=== PATIENT | female | born 1945 | race Caucasian/White ===

== ENCOUNTER 2021-09-29 16:10 | Inpatient (IN) | payer MEDICARE, MEDICAID, SELFPAY ==
[2021-09-29 16:11] VITALS: BP 119/78; PULSE 128; RESP 18; TEMP 36; O2SAT 100; BMI 28.3
--- NOTE | 2021-09-29 17:11 | CT_ITS ---
STUDY: CT FACIAL BONES WITHOUT CONTRAST REASON FOR EXAM: Female, 76 years old. Fall on Sunday or Sunday. Headache. Bruising entire right face. RADIATION DOSAGE (If Supplied By Facility): CTDIvol = ( 25.01 ) mGy, DLP = ( 573.67 ) mGycm TECHNIQUE: The patient was scanned in a multi detector CT scanner. Sagittal and coronal images were reconstructed. Individualized dose optimization techniques were used for this CT. COMPARISON: None. FINDINGS: A small nondisplaced hairline fracture is present through the mid aspect of the left zygomatic arch. A small oblique hairline fracture is also seen in the posterior wall of the left orbit, see image 40/82 series 5 and in the lateral wall of the left orbit where there is minimal cortical offset see image #54/82 series 5 and 56/71 series 605. Mild left periorbital soft tissue swelling noted. Mild focal soft tissue swelling noted around the anterior and right side of the frontal bone. Minimal right periorbital and mid facial soft tissue swelling is also present. A small oblique fracture is also seen through the left posterior aspect of the sella turcica with minimal displacement, although age indeterminate, referred image 43/72 series 604 and image 36/71 series 605. Normal bilateral globes, extraocular muscles, and optic nerve complexes. No intraorbital hemorrhage or air is present. No orbital floor fractures are seen. Normal nasal bones and anterior nasal spine. Normal remaining facial bones. Ethmoid and left sphenoid sinus mild mucus opacification is present. CT/Sinus/Facial Bone IMPRESSION: 1. Nondisplaced hairline fracture through the mid aspect of the left zygomatic arch 2. Nondisplaced hairline and minimally displaced oblique fractures through the left posterior orbital wall and lateral wall respectively 3. Mild right frontal, facial, and periorbital soft tissue swelling and mild left orbital swelling 4. A small oblique fractures also seen through the left posterior aspect of the sella turcica with minimal displacement, although age indeterminate, referred image 43/72 series 604 and image 36/71 series 605. Electronically Signed: Medardo Oglesby MD at 18:28 EST , Service support ,
--- NOTE | 2021-09-29 17:11 | CT_ITS ---
EXAMINATION : Head CT w/out contrast HISTORY : headache COMPARISON : None. TECHNIQUE : Multiple contiguous axial images were obtained from the skull base to the vertex without intravenous contrast. A radiation dose optimization technique was used for this scan. FINDINGS : There is no evidence for acute intracranial hemorrhage, mass effect, or midline shift. There is no extra-axial fluid collection. There are periventricular white matter changes consistent with chronic microvascular ischemic disease. There is sulcal widening and ventricular enlargement consistent with cerebral atrophy. There is normal horton-white differentiation, without CT evidence of acute ischemia or infarct. The skull base and calvarium are unremarkable. The orbits are unremarkable. The paranasal sinuses are clear. The mastoid air cells are well-aerated. The soft tissues are unremarkable. CT/Brain/Head without Contrast IMPRESSION: No acute intracranial abnormality. Chronic involutional and ischemic changes of the brain. Electronically Signed: Yovany Rangel MD at 17:49 EST Tel , Service support ,
--- NOTE | 2021-09-29 18:08 | EDS_ITS ---
HPI History of Present Illness Chief Complaint: Headache Narrative Narrative: 76-year-old female presenting with intermittent headache. She states that she had a mechanical fall at her bedside a few days ago. She states she fell hitting her head on the wooden floor. She denies LOC. She states that the headache has been intermittent as well as some dizziness when standing. She denies visual complaints. She does have bruising over the right forehead and eye. Patient states that she does fall frequently secondary to having Parkinson's disease. Patient denies chest pain or shortness of breath. She denies nausea or vomiting. She is eating and drinking normally. She is making normal urine and stool. [facility] Medical History Dementia Depression GERD (gastroesophageal reflux disease) Parkinson's disease Home Medications acetaminophen 325 mg PO QHS 09/29/21 [History Last Taken Unknown] acetaminophen 650 mg PO Q4H PRN 09/29/21 [History Last Taken Unknown] bisacodyl 10 mg VA DAILY PRN 09/29/21 [History Last Taken Unknown] carbidopa-levodopa 1 tab PO 4X/DAY 09/29/21 [History Last Taken Unknown] cholecalciferol (vitamin D3) 1,250 mcg PO THSA 09/29/21 [History Last Taken Unknown] cholestyramine-aspartame [Prevalite] 4 g PO DAILY PRN PRN 09/29/21 [History Last Taken Unknown] cyanocobalamin (vitamin B-12) 1,000 mcg PO DAILY 09/29/21 [History Last Taken Unknown] furosemide 40 mg PO BID 09/29/21 [History Last Taken Unknown] gabapentin 600 mg PO BID 09/29/21 [History Last Taken Unknown] gabapentin 800 mg PO QHS 09/29/21 [History Last Taken Unknown] guaifenesin [Ewelina-Tussin] 200 mg PO Q4H PRN 09/29/21 [History Last Taken Unknown] magnesium hydroxide [Milk of Magnesia] 30 ml PO DAILY PRN 09/29/21 [History Last Taken Unknown] meclizine 12.5 mg PO TID PRN 09/29/21 [History Last Taken Unknown] melatonin 5 mg PO QHS 09/29/21 [History Last Taken Unknown] mineral oil [Enema] 118 ml VA DAILY PRN 09/29/21 [History Last Taken Unknown] nystatin 1 unit PO TID 09/29/21 [History Last Taken Unknown] omeprazole 20 mg PO DAILY 09/29/21 [History Last Taken Unknown] ondansetron HCl 4 mg PO Q6H PRN 09/29/21 [History Last Taken Unknown] pimavanserin [Nuplazid] 34 mg PO DAILY 09/29/21 [History Last Taken Unknown] potassium chloride 40 meq PO BID 09/29/21 [History Last Taken Unknown] ropinirole 2 mg PO DAILY 09/29/21 [History Last Taken Unknown] simethicone 125 mg PO BID 09/29/21 [History Last Taken Unknown] sumatriptan succinate 100 mg PO Q2H PRN 09/29/21 [History Last Taken Unknown] trazodone 50 mg PO QHS 09/29/21 [History Last Taken Unknown] Allergy/AdvReac Type Severity Reaction Status Date / Time iodine Allergy PT UNSURE Verified 09/29/21 16:13 OF REACTION Sulfa (Sulfonamide Allergy PT UNSURE Verified 09/29/21 16:13 Antibiotics) OF REACTION Social History Smoking Status: Unknown if ever smoked ROS ROS ED Constitutional Constitutional ED: Denies fever(s) Eyes Eyes: Denies blurry vision or change in vision ENT ENT ED: Denies rhinorrhea or sore throat Cardiovascular Cardiovascular: Denies chest pain or palpitations Respiratory/Chest Respiratory/Chest: Denies cough or dyspnea Gastrointestinal Gastrointestinal: Denies abdominal pain, nausea or vomiting Genitourinary Genitourinary ED: Denies dysuria or hematuria Musculoskeletal Musculoskeletal: Denies neck pain Integumentary Reports other Details: Bruising over the right forehead and face. ; Denies rash Neurologic Neurologic: Reports headache(s); Denies paresthesias or weakness EXAM Physical Exam Const Vital Signs: 09/29/21 16:11 09/29/21 21:35 09/29/21 21:56 Temperature 96.8 F L 97.9 F Temperature Source Temporal Temporal Pulse Rate 128 H 133 H 91 Respiratory Rate 18 18 18 Blood Pressure 119/78 98/68 100/65 Blood Pressure Mean 91 78 76 Pulse Ox 100 96 97 Oxygen Delivery Method Room Air Room Air Room Air Positive well nourished General Appearance ED: NAD; Negative for pallor HEENT Reports normocephalic and moist mucous membranes HEENT Narrative: Bruising noted over the right side of her forehead as well as dependent edema and bruising down around the eye. No extraocular muscle entrapment. No bony deformities. Nasal septum midline. No nasal septal hematoma. No hemotympanum. Eyes PERRL and EOMs intact bilaterally Neck no lymphadenopathy and supple General: Negative for tenderness Resp normal respiratory effort and clear to auscultation bilaterally Cardio Rate: tachycardic Rhythm: abnormal rhythm irregularly irregular GI non-tender Palpation: soft Back/Spine no CVA tenderness Cervical Spine: Negative for cervical spine tenderness Thoracic Spine / Upper Back: Negative for thoracic spinal tenderness Neuro oriented x3 and CN's II-XII intact bilaterally Sensorium / Orientation: awake and alert Psych mental status grossly normal Skin General Skin Exam: Negative for jaundice or pallor Rashes: no rashes MDM MDM MDM Narrative Medical decision making narrative: Patient presenting with headache and states that she has had this for couple of days since she had a mechanical fall at home. She relates that she has Parkinson's. Patient does state that she has had some dizziness with standing. Patient initially sent for CT brain and CT maxillofacial. It was noted that her heart rate was 128. EKG was ordered as well as lab work. CT of the brain shows no acute intracranial process however the CT of the facial bones does show a nondisplaced fracture of the zygomatic arch, nondisplaced hairline and minimally displaced oblique fractures through the left posterior orbital wall and lateral wall respectively, and a small oblique fractures also seen through the left posterior aspect of the sella turcica with minimal displacement, although age indeterminate. I spoke with Chuck newell regarding the sella turcica fracture. I spoke with the transfer line who referred the case to Dr. Nieves who is on-call for trauma. He reviewed the case and did not believe the patient needed to be transferred for her facial bone fractures but did request that neurosurgery evaluate the images. Dr. Cross who is on-call for neurosurgeon she did review the images and felt that this was small and likely not acute and did not need transfer after 3 days status post injury. The follow-up physician would be a plastic surgeon for this and his name was given to me is Dr. Isauor Cruz. His phone number is area code [phone]. Patient's heart rate was evaluated his EKG and she is found to be in atrial fibrillation with a ventricular rate of 131 bpm. Patient is given 20 of Cardizem and a liter of IV fluids and her heart rate did respond to 91. She states she has a history of A. fib in her past. Blood work is obtained and her CBC and CMP are unremarkable. PT/INR normal. EtOH and drug abuse screen were obtained for trauma clearance and these are negative. High-sensitivity troponin initially is 260. She states that she does not have any chest pain so I speculate as to whether this was an elevated troponin due to her heart rate being fast and this may be contributing to her lightheadedness which is making her fall. Since she does not need transport to a trauma center I spoke with the hospitalist at [facility] who accepted the patient for new onset A. fib. Impression: #1. New onset atrial fibrillation #2. Falls #3. Elevated troponin #4. Left zygomatic fracture #5. Left posterior head to rule orbital fractures #6. Age-indeterminate sella turcica fractures. Lab Data Labs: Laboratory Results - last 24 hr 09/29/21 09/29/21 09/29/21 19:15 19:15 19:15 WBC 8.3 RBC 5.16 Hgb 14.6 Hct 44.1 MCV 85.5 MCH 28.3 MCHC 33.1 RDW Std Deviation 41.2 RDW Coeff of Bob 13.2 Plt Count 215 MPV 9.4 Immature Gran % (Auto) 0.200 Neut % (Auto) 74.4 H Lymph % (Auto) 19.2 Wells % (Auto) 5.4 Eos % (Auto) 0.6 Baso % (Auto) 0.2 Absolute Neuts (auto) 6.2 Absolute Lymphs (auto) 1.59 Nucleated RBC % 0 PT 14.5 INR 1.2 Sodium 142 Potassium 3.5 Chloride 104 Carbon Dioxide 33.0 H Anion Gap 5 BUN 12 Creatinine 0.91 Estim Creat Clear Calc 44.71 Est GFR (MDRD) Af Amer 77 Est GFR (MDRD) Non-Af 64 BUN/Creatinine Ratio 13.2 Glucose 98 Calcium 9.2 Total Bilirubin 0.50 AST 13 L ALT 14 Alkaline Phosphatase 134 H Troponin I High Sens 260 H* Total Protein 7.3 Albumin 3.7 Globulin 3.6 Albumin/Globulin Ratio 1.0 Urine Color Urine Clarity Urine pH Ur Specific Mccracken Urine Protein Urine Glucose (UA) Urine Ketones Urine Occult Blood Urine Nitrite Urine Bilirubin Urine Urobilinogen Ur Leukocyte Esterase Urine RBC Urine WBC Ur Squamous Epith Cells Urine Bacteria Urine Mucus Urine Opiates Screen Urine Methadone Screen Ur Barbiturates Screen Ur Phencyclidine Scrn Ur Amphetamines Screen U Methamphetamin-MDMA U Benzodiazepines Scrn Urine Cocaine Screen U Cannabinoids Screen Ur Drug Screen Comment Ethyl Alcohol 09/29/21 09/29/21 09/29/21 19:15 19:29 19:29 WBC RBC Hgb Hct MCV MCH MCHC RDW Std Deviation RDW Coeff of Bob Plt Count MPV Immature Gran % (Auto) Neut % (Auto) Lymph % (Auto) Wells % (Auto) Eos % (Auto) Baso % (Auto) Absolute Neuts (auto) Absolute Lymphs (auto) Nucleated RBC % PT INR Sodium Potassium Chloride Carbon Dioxide Anion Gap BUN Creatinine Estim Creat Clear Calc Est GFR (MDRD) Af Amer Est GFR (MDRD) Non-Af BUN/Creatinine Ratio Glucose Calcium Total Bilirubin AST ALT Alkaline Phosphatase Troponin I High Sens Total Protein Albumin Globulin Albumin/Globulin Ratio Urine Color Straw Urine Clarity Clear Urine pH 5.0 Ur Specific Mccracken 1.015 Urine Protein Negative Urine Glucose (UA) Normal Urine Ketones Negative Urine Occult Blood Negative Urine Nitrite Negative Urine Bilirubin Negative Urine Urobilinogen Normal Ur Leukocyte Esterase Negative Urine RBC 0 SEEN Urine WBC 0 SEEN Ur Squamous Epith Cells 0 SEEN Urine Bacteria 0 SEEN Urine Mucus 0 SEEN Urine Opiates Screen NEGATIVE Urine Methadone Screen NEGATIVE Ur Barbiturates Screen NEGATIVE Ur Phencyclidine Scrn NEGATIVE Ur Amphetamines Screen NEGATIVE U Methamphetamin-MDMA NEGATIVE U Benzodiazepines Scrn NEGATIVE Urine Cocaine Screen NEGATIVE U Cannabinoids Screen NEGATIVE Ur Drug Screen Comment Ethyl Alcohol < 3.0 Radiography Diagnostic Testing: Clinical Impression(s) from Imaging Studies Brain CT 09/29/21 17:11 IMPRESSION: No acute intracranial abnormality. Chronic involutional and ischemic changes of the brain. Electronically Signed: Yovany Rangel MD at 17:49 EST Tel , Service support , Facial/Sinus 09/29/21 17:11 IMPRESSION: 1. Nondisplaced hairline fracture through the mid aspect of the left zygomatic arch 2. Nondisplaced hairline and minimally displaced oblique fractures through the left posterior orbital wall and lateral wall respectively 3. Mild right frontal, facial, and periorbital soft tissue swelling and mild left orbital swelling 4. A small oblique fractures also seen through the left posterior aspect of the sella turcica with minimal displacement, although age indeterminate, referred image 43/72 series 604 and image 36/71 series 605. Electronically Signed: Medardo Oglesby MD at 18:28 EST , Service support , Chest X-Ray 09/29/21 19:05 IMPRESSION: There are no acute findings. Electronically Signed: Jeremiah Smith MD at 19:40 EST , Service support , Discharge Plan Triage Chief Complaint: Headache ED Provider: Isauro Stroud Dx/Rx/DC Orders Primary Care Provider: Marty Rodrigues
--- NOTE | 2021-09-29 19:05 | RAD_ITS ---
STUDY: XR Chest 1 View 09/29/2021 7:12 PM REASON FOR EXAM: Female, 76 years old. Technologist Notes HEADACHE FOR A FEW DAYS. STATES SHE FELL ON SUNDAY OR SUNDAY. BRUISING AND CONTUSION TO FACE. DENIES LOC falls COMPARISON: None TECHNIQUE: XR Chest 1 View FINDINGS: There is no demonstrated pleural abnormality. Normal heart size. Normal mediastinum. Normal jazmine. Prominent appearing increased interstitial lung markings. Normal visualized pulmonary arteries. There is atherosclerotic calcification of the aortic arch with tortuosity. There are diffuse degenerative changes of the visualized thoracic spine. There is degenerative osteoarthritis of the bilateral shoulders. There is no demonstrated abnormality of the visualized soft tissue structures of the upper abdomen. RAD/Chest 1 View (Portable) IMPRESSION: There are no acute findings. Electronically Signed: Jeremiah Smith MD at 19:40 EST , Service support ,
[2021-09-29 19:30] LABS: Absolute Lymphocyte Count 1.59 X10^3/uL (0.83-4.51); Absolute Neutrophil Count 6.2 X10^3/uL (2.0-7.7); Basophil# 0.02 X10^3/uL; Basophil% 0.2 % (0-1); Eosinophil# 0.05 X10^3/uL; Eosinophils% 0.6 % (0-5); Hematocrit 44.1 % (37-47); Hemoglobin 14.6 g/dL (12.0-15.0); Lymphocyte # 1.59 X10^3/ul (0.83-4.51); Lymphocyte % 19.2 % (19-41); Mean Corp Hgb Conc 33.1 g/dL (32-36); Mean Corpuscular Hgb 28.3 pg (27.0-32.0); Mean Corpuscular Volume 85.5 fL (81-99); Mean Platelet Vol. 9.4 fl (6.2-12.0); Monocyte# 0.45 X10^3/uL; Monocyte% 5.4 % (0-10); NRBC Flagged by Analyzer 0 % (0-5); Neutrophil # 6.15 X10^3/uL (2.7-7.7); Neutrophil % 74.4 % (47-70); Platelet Count 215 K/mm3 (150-450); RBC Distribution Width CV 13.2 % (11.6-14.6); RBC Distribution Width SD 41.2 fl (35.1-43.9); Red Blood Count 5.16 M/mm3 (4.2-5.4); White Blood Count 8.3 K/mm3 (4.4-11.0)
[2021-09-29 19:34] LABS: Bacteria 0 SEEN /hpf (None Seen); Mucous, Urine 0 SEEN /hpf (<or=2+); Red Blood Cells-Urine 0 SEEN /hpf (0-5); Squamous Epithelial Cells - UA 0 SEEN /hpf (5-10); White Blood Cells 0 SEEN /hpf (0-5)
[2021-09-29 19:35] LABS: International Normalized Ratio 1.2; Prothrombin Time (Protime)PT. 14.5 SECONDS (11.7-14.9)
[2021-09-29 19:39] LABS: Color, Urine Straw (Yellow); Glucose, Dipstick Normal (Normal); Ketone-Dipstick Negative (Negative); Leukocyte Esterase-Dipstick Negative /ul (Negative); Nitrite-Dipstick Negative (Negative); Occult Blood-Urine Negative /ul (Negative); Protein-Dipstick Negative (Negative); Specific Gravity, Urine 1.015 (1.002-1.030); Urine Bilirubin Dipstick Negative (Negative); Urine Clarity Clear (Clear); Urine Urobilinogen Normal (Normal)
[2021-09-29 19:57] LABS: AST(SGOT) 13 U/L (15-37); Alanine Aminotransfer ALT/SGPT 14 U/L (13-56); Albumin, Serum 3.7 g/dL (3.2-5.0); Alkaline Phosphatase 134 U/L (45-117); Anion Gap 5 (5-15); BUN 12 mg/dL (7-18); BUN/Creat Ratio 13.2 RATIO (10-20); Calcium,Total 9.2 mg/dL (8.5-10.1); Chloride 104 mmol/L (98-107); Creatinine, Serum 0.91 mg/dL (0.55-1.02); EST Glomerular Filtration Rate 64 mL/min (>60); Est Glom Filt Rate - Afr Amer 77 mL/min (>60); Estimated Creatinine Clearance 44.71 ml/min; Globulin 3.6 g/dL (2.2-4.2); Glucose 98 mg/dL (74-106); Potassium 3.5 mmol/L (3.5-5.1); Protein, Total 7.3 g/dL (6.4-8.2); Sodium Level 142 mmol/L (136-145); Troponin-I HS 260 pg/mL (3.0-54.0)
--- NOTE | 2021-09-29 20:06 | EKG12_ITS ---
Test Reason : DYSRHYTHMIA Blood Pressure : / mmHG Vent. Rate : 131 BPM Atrial Rate : 122 BPM P-R Int : 000 ms QRS Dur : 086 ms QT Int : 318 ms P-R-T Axes : 000 013 214 degrees QTc Int : 469 ms Atrial fibrillation Nonspecific T wave abnormality Abnormal ECG Confirmed by BEVERLY GUPTA, YESSENIA ([id number]), digital editor EWA CARLOS ([id number]) on 10/05/2021 10:41:22 AM Referred By: JULIA Confirmed By:YESSENIA PAUL MD
[2021-09-29 20:33] LABS: Alcohol, Blood (Medical)-Serum < 3.0 mg/dL
[2021-09-29 20:59] LABS: Amphetamine Urine VISTA NEGATIVE (<1000 ng/mL); Barbiturate Urine VISTA NEGATIVE (< 200 ng/mL); Benzodiazepine Urine VISTA NEGATIVE (< 200 ng/mL); Cocaine Urine VISTA NEGATIVE (< 300 ng/mL); Ecstacy Urine VISTA NEGATIVE (< 500 ng/mL); Methadone Urine VISTA NEGATIVE (< 300 ng/mL); PCP Urine VISTA NEGATIVE (< 25 ng/mL); THC Urine VISTA NEGATIVE (< 50 ng/mL); Vista UDS pH Range 5
[2021-09-29] MEDS: dilTIAZem 25 MG/5 ML Vial 20 MG IV BOLUS (21:23)
[2021-09-29] MEDS: 0.9% Normal Saline 1,000 ML 999 ML IV (21:33)
[2021-09-29 21:35] VITALS: BP 98/68; PULSE 133; RESP 18; O2SAT 96
[2021-09-29 21:56] VITALS: BP 100/65; PULSE 91; RESP 18; TEMP 36.6; O2SAT 97
--- NOTE | 2021-09-29 23:01 | HP.PCM.HOS_ITS ---
HPI - General General Date of Admission: 09/29/21 HPI Narrative ROBB CHAVEZ, is a 76 F who presents with a chief complaint of headache. She had a mechanical fall several days ago after feeling dizzy and her legs going wobbly. She hit her head on the floor. Denies visual complaints or a loss of consciousness and she did have significant bruising. The patient states that she falls routinely 1-3 times per day. She does use a walker at home. She has no recent issues of chest pain, very rarely has chest palpitations. She only has shortness of breath when she has significant anxiety in reference to her passing away. She denies fevers chills. Patient does not have any previous history of heart problems and she does not have a diagnosis of atrial fibrillation that she knows of. She takes fluid pills and she does not notice any significant change in her lower extremity edema, but states she does have it. She was found to Afib in ED, and troponin elevation to 260 in absence of chest pain. U Toxicology negative. Lytes reasonably normal. Does not smoke or use ETOH. FORMERLY [facility] Medical History (Updated 09/29/21 @ 23:[address] Favian Wood MD) Dementia Depression GERD (gastroesophageal reflux disease) Parkinson's disease Home Medications acetaminophen 325 mg PO QHS 09/29/21 [History Last Taken Unknown] acetaminophen 650 mg PO Q4H PRN 09/29/21 [History Last Taken Unknown] bisacodyl 10 mg ID DAILY PRN 09/29/21 [History Last Taken Unknown] carbidopa-levodopa 1 tab PO 4X/DAY 09/29/21 [History Last Taken Unknown] cholecalciferol (vitamin D3) 1,250 mcg PO THSA 09/29/21 [History Last Taken Unknown] cholestyramine-aspartame [Prevalite] 4 g PO DAILY PRN PRN 09/29/21 [History Last Taken Unknown] cyanocobalamin (vitamin B-12) 1,000 mcg PO DAILY 09/29/21 [History Last Taken Unknown] furosemide 40 mg PO BID 09/29/21 [History Last Taken Unknown] gabapentin 600 mg PO BID 09/29/21 [History Last Taken Unknown] gabapentin 800 mg PO QHS 09/29/21 [History Last Taken Unknown] guaifenesin [Ewelina-Tussin] 200 mg PO Q4H PRN 09/29/21 [History Last Taken Unknown] magnesium hydroxide [Milk of Magnesia] 30 ml PO DAILY PRN 09/29/21 [History Last Taken Unknown] meclizine 12.5 mg PO TID PRN 09/29/21 [History Last Taken Unknown] melatonin 5 mg PO QHS 09/29/21 [History Last Taken Unknown] mineral oil [Enema] 118 ml ID DAILY PRN 09/29/21 [History Last Taken Unknown] nystatin 1 unit PO TID 09/29/21 [History Last Taken Unknown] omeprazole 20 mg PO DAILY 09/29/21 [History Last Taken Unknown] ondansetron HCl 4 mg PO Q6H PRN 09/29/21 [History Last Taken Unknown] pimavanserin [Nuplazid] 34 mg PO DAILY 09/29/21 [History Last Taken Unknown] potassium chloride 40 meq PO BID 09/29/21 [History Last Taken Unknown] ropinirole 2 mg PO DAILY 09/29/21 [History Last Taken Unknown] simethicone 125 mg PO BID 09/29/21 [History Last Taken Unknown] sumatriptan succinate 100 mg PO Q2H PRN 09/29/21 [History Last Taken Unknown] trazodone 50 mg PO QHS 09/29/21 [History Last Taken Unknown] Allergy/AdvReac Type Severity Reaction Status Date / Time iodine Allergy PT UNSURE Verified 09/29/21 16:13 OF REACTION Sulfa (Sulfonamide Allergy PT UNSURE Verified 09/29/21 16:13 Antibiotics) OF REACTION Social History Smoking Status: Unknown if ever smoked ROS ROS Narrative + frequent falls, and Restless legs and insomnia, with depression. No anorexia, abdominal pain, d/c or dysuria, hematuria, no trouble seeing hearing swallowing. No trouble with skin, myalgias. Vital Signs Vital Signs Vital Signs: 09/29/21 16:11 09/29/21 21:35 09/29/21 21:56 Temperature 96.8 F L 97.9 F Temperature Source Temporal Temporal Pulse Rate 128 H 133 H 91 Respiratory Rate 18 18 18 Blood Pressure 119/78 98/68 100/65 Blood Pressure Mean 91 78 76 Pulse Ox 100 96 97 Oxygen Delivery Method Room Air Room Air Room Air Weight Weight: 165 lb Body Mass Index (BMI) 28.3 Physical Exam Const alert and no apparent distress General Appearance: cooperative HEENT normocephalic Eyes PERRL and EOMs intact bilaterally Resp normal respiratory effort and no use of accessory muscles Cardio S1 normal heart sound and S2 normal heart sound Cardio Narrative: Irregular rhythm, up to 131 noted. Extremity normal to inspection Skin Skin Narrative: + Facial bruising from fall Neuro Sensorium / Orientation: alert Psych affect normal Results Lab / Micro Data Result Diagrams: 09/29/21 19:15 09/29/21 19:15 Labs: Laboratory Results - last 24 hr 09/29/21 19:15: WBC 8.3, RBC 5.16, Hgb 14.6, Hct 44.1, MCV 85.5, MCH 28.3, MCHC 33.1, RDW Std Deviation 41.2, RDW Coeff of Bob 13.2, Plt Count 215, MPV 9.4, Immature Gran % (Auto) 0.200, Neut % (Auto) 74.4 H, Lymph % (Auto) 19.2, [place] % (Auto) 5.4, Eos % (Auto) 0.6, Baso % (Auto) 0.2, Absolute Neuts (auto) 6.2, Absolute Lymphs (auto) 1.59, Nucleated RBC % 0 09/29/21 19:15: PT 14.5, INR 1.2 09/29/21 19:15: Sodium 142, Potassium 3.5, Chloride 104, Carbon Dioxide 33.0 H, Anion Gap 5, BUN 12, Creatinine 0.91, Estim Creat Clear Calc 44.71, Est GFR (MDRD) Af Amer 77, Est GFR (MDRD) Non-Af 64, BUN/Creatinine Ratio 13.2, Glucose 98, Calcium 9.2, Total Bilirubin 0.50, AST 13 L, ALT 14, Alkaline Phosphatase 134 H, Troponin I High Sens 260 H*, Total Protein 7.3, Albumin 3.7, Globulin 3.6, Albumin/Globulin Ratio 1.0 09/29/21 19:15: Ethyl Alcohol < 3.0 09/29/21 19:29: Urine Color Straw, Urine Clarity Clear, Urine pH 5.0, Ur Specific [place] 1.015, Urine Protein Negative, Urine Glucose (UA) Normal, Urine Ketones Negative, Urine Occult Blood Negative, Urine Nitrite Negative, Urine Bilirubin Negative, Urine Urobilinogen Normal, Ur Leukocyte Esterase Negative, Urine RBC 0 SEEN, Urine WBC 0 SEEN, Ur Squamous Epith Cells 0 SEEN, Urine Bacteria 0 SEEN, Urine Mucus 0 SEEN 09/29/21 19:29: Urine Opiates Screen NEGATIVE, Urine Methadone Screen NEGATIVE, Ur Barbiturates Screen NEGATIVE, Ur Phencyclidine Scrn NEGATIVE, Ur Amphetamines Screen NEGATIVE, U Methamphetamin-MDMA NEGATIVE, U Benzodiazepines Scrn NEGATIVE, Urine Cocaine Screen NEGATIVE, U Cannabinoids Screen NEGATIVE, Ur Drug Screen Comment Radiology Impression Brain CT 09/29/21 17:11 IMPRESSION: No acute intracranial abnormality. Chronic involutional and ischemic changes of the brain. Electronically Signed: Yovany Rangel MD at 17:49 EST Tel , Service support , Facial/Sinus 09/29/21 17:11 IMPRESSION: 1. Nondisplaced hairline fracture through the mid aspect of the left zygomatic arch 2. Nondisplaced hairline and minimally displaced oblique fractures through the left posterior orbital wall and lateral wall respectively 3. Mild right frontal, facial, and periorbital soft tissue swelling and mild left orbital swelling 4. A small oblique fractures also seen through the left posterior aspect of the sella turcica with minimal displacement, although age indeterminate, referred image 43/72 series 604 and image 36/71 series 605. Electronically Signed: Medardo Oglesby MD at 18:28 EST , Service support , Chest X-Ray 09/29/21 19:05 IMPRESSION: There are no acute findings. Electronically Signed: Jeremiah Smith MD at 19:40 EST , Service support , Assessment & Plan Assessment/Plan (1) Fall: (2) Atrial fibrillation: (3) Parkinson's disease: (4) Depression: PLAN: Patient with atrial fibrillation newly discovered on work-up in the ED after a trauma rule out. Patient did have a troponin of 260 without any symptoms or changes on EKG, likely related to atrial fibrillation Recent mechanical fall Persistent atrial fibrillation -Repeat troponin to evaluate trend. -Repeat EKG in morning. -Likely due to combination of Parkinson's, and possible atrial fibrillation causing lightheadedness -Obtain echo 2D -Anticoagulation with Lovenox, to discuss Eliquis versus Coumadin per primary team given significant fall risk and would also appreciate physical therapy evaluation -Check TSH & MG -Start low-dose Lopressor twice daily, 12.5 mg and titrate up as needed. -Monitor on tele -Lytes are reviewed, normal Parkinsons -Resume home Carbidopa/Levodopa -PT, OT Depression - Resume home ropinorole GERD - Home ppi 20 mg - Home laxatives. The patient is DNR, DNI Resume cardiac diet Continue full dose Lovenox Favian Wood MD Charges/Coding Visit Charges Inpatient E&M: 97045 Init Hosp L2
--- NOTE | 2021-09-29 23:11 | ECHOCS_ITS ---
Reason For Study: CHF Procedure This was a 2D Doppler, Color Flow transthoracic echocardiogram. Contrast injection was performed. Exam performed portable in patient room. Left Ventricle Image quality is good with] 7 out of 10]. Patient is in atrial fibrillation with variable ventricular rate during the study Left ventricular systolic function is preserved, visually estimated at 65%. No regional wall motion abnormalities appreciated. Left ventricular wall thickness is at the upper limits of normal. No gross evidence of diastolic dysfunction. Left atrium is dilated, 4.3 cm in transverse diameter. Estimated left atrial volume index as noted appears to be an underestimate. Right atrium and right ventricle are of normal size, right ventricular systolic function appears normal. The aortic valve is tricuspid, there is aortic sclerosis, there is no aortic stenosis, there is mild aortic regurgitation. Pressure half-time of the aortic regurgitation jet is 539 ms. Aortic root size is normal The mitral valve is structurally normal, there is mild mitral annular calcification, there is trivial to mild mitral regurgitation The tricuspid valve is structurally normal, there is mild (1+] tricuspid regurgitation Estimated RV systolic pressure is 22 mmHg which is normal Contrast imaging was used for the study No pericardial effusion No prior echo report is available for comparison. Medication Diluted definity 2ml given slow IV push to enhance endocardial definition. MMode/2D Measurements & Calculations LVIDd: 5.0 cm IVSd: 0.87 cm Ao root diam: 2.5 cm LVIDs: 3.4 cm LVPWd: 1.1 cm RVDd: 2.3 cm FS: 31.7 % LAV(MOD-bp): 49.4 ml LVAd ap4: 21.4 cm2 SV(MOD-sp4): 33.4 ml LAV(MOD-bp) Indexed: 27.4 ml/m2 LVLd ap4: 6.9 cm LAV(MOD-sp2): 52.4 ml EDV(MOD-sp4): 54.8 ml LAV(MOD-sp4): 46.5 ml EDV(sp4-el): 56.3 ml LVAs ap4: 12.2 cm2 LVLs ap4: 5.9 cm ESV(MOD-sp4): 21.3 ml ESV(sp4-el): 21.4 ml EF(MOD-sp4): 61.0 % EF(sp4-el): 62.0 % SV(sp4-el): 34.9 ml LA dimension(2D): 4.8 cm LA A4 area: 18.8 cm2 RA A4 area: 11.6 cm2 Doppler Measurements & Calculations MV E max troy: 99.8 cm/sec Ao V2 max: 126.7 cm/sec AI max troy: 314.6 cm/sec Ao max P.4 mmHg AI max P.6 mmHg Ao V2 mean: 90.8 cm/sec Ao mean P.6 mmHg AI dec slope: 177.9 cm/sec2 Ao V2 VTI: 21.7 cm AI P1/2t: 517.9 msec LV V1 max: 84.6 cm/sec PA V2 max: 74.4 cm/sec TR max troy: 235.8 cm/sec LV V1 max P.9 mmHg TR max P.2 mmHg ECHO/Echo Complete W/ Contrast Interpretation Summary Image quality is good with] 7 out of 10]. Patient is in atrial fibrillation with variable ventricular rate during the yoanna dy Left ventricular systolic function is preserved, visually estimated at 65%. No regional wall motion abnormalities appreciated. Left ventricular wall thickness is at the upper limits of normal. No gross evidence of diastolic dysfunction. Left atrium is dilated, 4.3 cm in transverse diameter. Estimated left atrial vo lume index as noted appears to be an underestimate. Right atrium and right ventricle are of normal size, right ventricular systolic function appears normal. The aortic valve is tricuspid, there is aortic sclerosis, there is no aortic st enosis, there is mild aortic regurgitation. Pressure half-time of the aortic regurgitation jet is 539 ms. Aortic root size is normal The mitral valve is structurally normal, there is mild mitral annular calcifica tion, there is trivial to mild mitral regurgitation The tricuspid valve is structurally normal, there is mild (1+] tricuspid regurg itation Estimated RV systolic pressure is 22 mmHg which is normal Contrast imaging was used for the study No pericardial effusion No prior echo report is available for comparison. Ordering Physician: Favian Wood Referring Physician: Marty Rodrigues Performed By: Anabel Rene, LORENZO, RVT
[2021-09-29 23:20] VITALS: BMI 28.5
[2021-09-29 23:22] VITALS: BP 125/96; PULSE 125; RESP 20; TEMP 36.8; O2SAT 97
[2021-09-29 23:36] VITALS: PULSE 125
[2021-09-29] MEDS: Enoxaparin 80 MG/0.8 ML Syringe 70 MG SC (23:36)
[2021-09-29] MEDS: Metoprolol Tartrate 25 MG Tablet 12.5 MG PO (23:36)
[2021-09-29 23:38] VITALS: PULSE 123
--- NOTE | 2021-09-29 23:59 | PCS.PANDOC ---
PANDEMIC DOCUMENTATION INITIATED: Date: 05/16/2021 Time: 190
[2021-09-30] VITALS (18 sets, daily range): BP systolic 72–118; BP diastolic 39–94; PULSE 71–145; RESP 16–20; TEMP 36.5–37.1; O2SAT 96–100
[2021-09-30] MEDS: dilTIAZem 25 MG/5 ML Vial 20 MG IV BOLUS ×2 (02:41→22:44)
[2021-09-30] MEDS: Acetaminophen 325 MG Tablet 650 MG PO (02:43)
[2021-09-30] MEDS: 0.9% Saline Lock 10 ML Syringe IV ×4 (02:43→22:44)
[2021-09-30] MEDS: Metoprolol Tartrate 25 MG Tablet 12.5 MG PO ×3 (02:43→22:40)
[2021-09-30] MEDS: Pramipexole Di-HCl 1 MG Tablet PO ×3 (02:52→22:41)
[2021-09-30 03:40] LABS: Absolute Lymphocyte Count 1.92 X10^3/uL (0.83-4.51); Absolute Neutrophil Count 7.2 X10^3/uL (2.0-7.7); Basophil# 0.03 X10^3/uL; Basophil% 0.3 % (0-1); Eosinophil# 0.06 X10^3/uL; Eosinophils% 0.6 % (0-5); Hematocrit 41.7 % (37-47); Hemoglobin 13.9 g/dL (12.0-15.0); Lymphocyte # 1.92 X10^3/ul (0.83-4.51); Lymphocyte % 19.6 % (19-41); Mean Corp Hgb Conc 33.3 g/dL (32-36); Mean Corpuscular Hgb 28.8 pg (27.0-32.0); Mean Corpuscular Volume 86.5 fL (81-99); Mean Platelet Vol. 9.2 fl (6.2-12.0); Monocyte# 0.58 X10^3/uL; Monocyte% 5.9 % (0-10); NRBC Flagged by Analyzer 0 % (0-5); Neutrophil # 7.17 X10^3/uL (2.7-7.7); Neutrophil % 73.3 % (47-70); Platelet Count 221 K/mm3 (150-450); RBC Distribution Width CV 13.2 % (11.6-14.6); RBC Distribution Width SD 41.1 fl (35.1-43.9); Red Blood Count 4.82 M/mm3 (4.2-5.4); White Blood Count 9.8 K/mm3 (4.4-11.0)
[2021-09-30 04:15] LABS: Troponin-I HS 259 pg/mL (3.0-54.0)
[2021-09-30 04:19] LABS: Anion Gap 7 (5-15); BUN 11 mg/dL (7-18); BUN/Creat Ratio 13.1 RATIO (10-20); Calcium,Total 8.4 mg/dL (8.5-10.1); Chloride 110 mmol/L (98-107); Creatinine, Serum 0.84 mg/dL (0.55-1.02); EST Glomerular Filtration Rate 70 mL/min (>60); Est Glom Filt Rate - Afr Amer 85 mL/min (>60); Estimated Creatinine Clearance 48.43 ml/min; Glucose 103 mg/dL (74-106); Magnesium 2.2 mg/dL (1.6-2.6); Potassium 3.3 mmol/L (3.5-5.1); Sodium Level 143 mmol/L (136-145); Thyroid Stim Hormone (TSH) 5.26 uIU/mL (0.358-3.74)
[2021-09-30] MEDS: Potassium Chloride Oral Tablet 20 MEQ 40 MEQ PO (05:51)
--- NOTE | 2021-09-30 05:55 | EKG12_ITS ---
Test Reason : AM EKG Blood Pressure : / mmHG Vent. Rate : 109 BPM Atrial Rate : 127 BPM P-R Int : 000 ms QRS Dur : 088 ms QT Int : 358 ms P-R-T Axes : 000 012 220 degrees QTc Int : 482 ms Atrial fibrillation Nonspecific T wave abnormality Abnormal ECG When compared with ECG of 29-SEP-2021 20:37, MANUAL COMPARISON REQUIRED, DATA IS UNCONFIRMED Confirmed by LENNIE GUPTA, EWA ([id number]), news editor HEVER SIN ([id number]) on 10/14/2021 7:53:42 AM Referred By: HORACIO Confirmed By:PIO HOGUE MD
[2021-09-30] MEDS: Nystatin Powder 15gm Bottle 1 APPLIC TOPICAL ×3 (05:57→22:40)
[2021-09-30 09:36] LABS: T4 Free Direct 1.54 ng/dL (0.76-1.46)
[2021-09-30] MEDS: Furosemide 40 MG Tablet PO ×2 (09:42→22:41)
[2021-09-30] MEDS: Enoxaparin 80 MG/0.8 ML Syringe 70 MG SC (09:43)
[2021-09-30] MEDS: Carbidopa/Levodopa 25/250 Tablet PO ×4 (09:45→22:40)
--- NOTE | 2021-09-30 10:33 | PN.HOSP_ITS ---
Documented by User: Kristen Blake NP-C 09/30/21 10:42 Subjective Subjective Seen and examined. Patient sitting in bed no distress noted. RN at bedside. Objective Data Objective Data Vital Signs: Vital Signs Temp Pulse Resp BP Pulse Ox 97.8 F 103 H 16 101/61 100 09/30/21 08:50 09/30/21 09:46 09/30/21 08:50 09/30/21 09:46 09/30/21 08:50 Oxygen Delivery Method Room Air Weight: 166 lb 3.657 oz Body Mass Index (BMI) 28.5 Intake & Output: Intake and Output for Last 24 Hours 09/28/21 09/29/21 09/30/21 23:59 23:59 23:59 Intake Total 1120 / 1120 400 / 400 Balance 1120 / 1120 400 / 400 Lab / Micro Data Result Diagrams: 09/30/21 03:21 09/30/21 03:21 Labs: Laboratory Results - last 24 hr 09/29/21 19:15: WBC 8.3, RBC 5.16, Hgb 14.6, Hct 44.1, MCV 85.5, MCH 28.3, MCHC 33.1, RDW Std Deviation 41.2, RDW Coeff of Bob 13.2, Plt Count 215, MPV 9.4, Immature Gran % (Auto) 0.200, Neut % (Auto) 74.4 H, Lymph % (Auto) 19.2, [place]da % (Auto) 5.4, Eos % (Auto) 0.6, Baso % (Auto) 0.2, Absolute Neuts (auto) 6.2, Absolute Lymphs (auto) 1.59, Nucleated RBC % 0 09/29/21 19:15: PT 14.5, INR 1.2 09/29/21 19:15: Sodium 142, Potassium 3.5, Chloride 104, Carbon Dioxide 33.0 H, Anion Gap 5, BUN 12, Creatinine 0.91, Estim Creat Clear Calc 44.71, Est GFR (MDRD) Af Amer 77, Est GFR (MDRD) Non-Af 64, BUN/Creatinine Ratio 13.2, Glucose 98, Calcium 9.2, Total Bilirubin 0.50, AST 13 L, ALT 14, Alkaline Phosphatase 134 H, Troponin I High Sens 260 H*, Total Protein 7.3, Albumin 3.7, Globulin 3.6, Albumin/Globulin Ratio 1.0 09/29/21 19:15: Ethyl Alcohol < 3.0 09/29/21 19:29: Urine Color Straw, Urine Clarity Clear, Urine pH 5.0, Ur Specific [place] 1.015, Urine Protein Negative, Urine Glucose (UA) Normal, Urine Ketones Negative, Urine Occult Blood Negative, Urine Nitrite Negative, Urine Bilirubin Negative, Urine Urobilinogen Normal, Ur Leukocyte Esterase Negative, Urine RBC 0 SEEN, Urine WBC 0 SEEN, Ur Squamous Epith Cells 0 SEEN, Urine Bacteria 0 SEEN, Urine Mucus 0 SEEN 09/29/21 19:29: Urine Opiates Screen NEGATIVE, Urine Methadone Screen NEGATIVE, Ur Barbiturates Screen NEGATIVE, Ur Phencyclidine Scrn NEGATIVE, Ur Amphetamines Screen NEGATIVE, U Methamphetamin-MDMA NEGATIVE, U Benzodiazepines Scrn NEGATIVE, Urine Cocaine Screen NEGATIVE, U Cannabinoids Screen NEGATIVE, Ur Drug Screen Comment 09/30/21 03:21: Sodium 143, Potassium 3.3 L, Chloride 110 H, Carbon Dioxide 26.0, Anion Gap 7, BUN 11, Creatinine 0.84, Estim Creat Clear Calc 48.43, Est GFR (MDRD) Af Amer 85, Est GFR (MDRD) Non-Af 70, BUN/Creatinine Ratio 13.1, Glucose 103, Calcium 8.4 L, Magnesium 2.2, TSH 5.26 H 09/30/21 03:21: Troponin I High Sens 259 H* 09/30/21 03:21: WBC 9.8, RBC 4.82, Hgb 13.9, Hct 41.7, MCV 86.5, MCH 28.8, MCHC 33.3, RDW Std Deviation 41.1, RDW Coeff of Bob 13.2, Plt Count 221, MPV 9.2, Immature Gran % (Auto) 0.300, Neut % (Auto) 73.3 H, Lymph % (Auto) 19.6, Ida % (Auto) 5.9, Eos % (Auto) 0.6, Baso % (Auto) 0.3, Absolute Neuts (auto) 7.2, Absolute Lymphs (auto) 1.92, Nucleated RBC % 0 09/30/21 03:21: Free T4 1.54 H Radiography Diagnostic Testing: Radiology Impression Brain CT 09/29/21 17:11 IMPRESSION: No acute intracranial abnormality. Chronic involutional and ischemic changes of the brain. Electronically Signed: Yovany Rangel MD at 17:49 EST Tel , Service support , Facial/Sinus 09/29/21 17:11 IMPRESSION: 1. Nondisplaced hairline fracture through the mid aspect of the left zygomatic arch 2. Nondisplaced hairline and minimally displaced oblique fractures through the left posterior orbital wall and lateral wall respectively 3. Mild right frontal, facial, and periorbital soft tissue swelling and mild left orbital swelling 4. A small oblique fractures also seen through the left posterior aspect of the sella turcica with minimal displacement, although age indeterminate, referred image 43/72 series 604 and image 36/71 series 605. Electronically Signed: Medardo Oglesby MD at 18:28 EST , Service support , Chest X-Ray 09/29/21 19:05 IMPRESSION: There are no acute findings. Electronically Signed: Jeremiah Smith MD at 19:40 EST , Service support , Physical Exam Const alert and no apparent distress General Appearance: cooperative and comfortable Orientation / Consciousness: oriented to person and oriented to place HEENT head/scalp atraumatic Head and Scalp: normocephalic Eyes conjunctivae normal and no scleral icterus Neck supple Resp normal respiratory effort, normal air movement and clear to auscultation bilaterally Effort and Inspection: able to speak in complete sentences and symmetric chest movement Cardio S1 normal heart sound, S2 normal heart sound and peripheral pulses 2+ throughout Rate: tachycardic Rhythm: abnormal rhythm irregularly irregular GI normal to inspection, nondistended, normoactive bowel sounds, soft to palpation and non-tender Extremity normal to inspection, full ROM and no clubbing, cyanosis or edema Peripheral Pulses: Yes pulses 2+ throughout Skin Skin Narrative: Patient has multiple bruises to bilateral arms as well as a bruise to her right eye following multiple falls at home Neuro moves all extremities, no focal motor deficits and no sensory deficits noted Sensorium / Orientation: awake, alert, oriented to person and oriented to place Psych Mood & Affect: flat affect Assessment & Plan Assessment/Plan (1) Fall: QUALIFIERS: Encounter type: initial encounter Qualified Code(s): W19.XXXA - Unspecified fall, initial encounter (2) Atrial fibrillation: QUALIFIERS: Atrial fibrillation type: longstanding persistent Qualified Code(s): I48.11 - Longstanding persistent atrial fibrillation PLAN: 1. Atrial fibrillation -Continue metoprolol -Advised patient not currently anticoagulated at home. 2. Falls -PT and OT following, patient reports that she falls multiple to a day at home despite use of a walker -Case management consulted for discharge planning and possible placement at custodial facility. DVT prophylaxis-Lovenox This patient was seen by KG Valdez under the supervision of Dr. Espinoza. Documented by User: Dr. Noemi Espinoza MD 09/30/21 16:11 Objective Data Lab / Micro Data Result Diagrams: 09/30/21 03:21 09/30/21 03:21 Charges/Coding Addendum Addendum: Patient seen by Kristen SAUL under my supervision Patient is a 76 y/o female who was admitted with a complaint of headache. She had had a mechanical fall some days prior to admission after feeling dizzy. She had been having several falls at home. On admission she was found to be in A. fib. Troponin was also elevated to 60. She however denied any chest pain. She was admitted to be managed for A. fib which was thought to likely be the cause of her frequent falls. Patient seen and examined this morning. She had no complaints. She had a large resolving bruise over the right eye but had no active complaints otherwise. Review of systems otherwise negative. O/E Const alert and no apparent distress General Appearance: cooperative HEENT normocephalic Eyes PERRL and EOMs intact bilaterally Resp normal respiratory effort and no use of accessory muscles Cardio S1 normal heart sound and S2 normal heart sound Cardio Narrative:afibm with irregularly irregular rate Extremity normal to inspection Skin Skin Narrative: resolving bruise over right eye due to mechanical fall Neuro Sensorium / Orientation: alert Psych affect normal Assessment and plan. #Afib * new onset * being anticoagulated with lovenox now * 2D echo pending * patient says she has had 2 remote episodes of GI bleed, but none recently. * on lopressor 12.5mg bid * TSH: was elevated at 5.26; free T4 is 1.54; this is contrary to the depressed free T4 one would expect with elevated TSH. * consult cardiology. * #Elevated TSH * TSH elevated as above and free T4 is also elevated. This raises the question of whether this picture of hyperthyroidism may be because of a TSH secreting lesion. * this may be the cause of the afib as well, though she also has elevated troponins so a cardiac cause cannot be ruled out. * will discuss with endocrinology. * CT of the brain on admission was negative. * #nonstemi * troponin was 260 on admisison, and trended downwards to 234. * on lovenox therapuetic dose * 2D echo pending. She hasnt had any chest pain * cardiology consulted * #Hypokalemia:K is 3.3. Will replace and trend. #Parkinsons's disease: on carbidopa/levodopa #Dementia: stable. #Mechanical falls: PT/OT on board. Fall precaution DVT prophylaxis: on lovenox therapeutic dose as thromboprophylaxis for afib. Visit Charges Inpatient E&M: 73775 [facility] Hosp L3
[2021-09-30 10:54] LABS: Troponin-I HS 234 pg/mL (3.0-54.0)
--- NOTE | 2021-09-30 11:10 | CASEMGMT ---
DAIN RAMIREZ: Visited pt at bedside. Pt confirms she is from the [facility] as a resident. Pt unable to state the LOC that she resides under. This RN ASHLEY contacted the [employer] and spoke with Marli (pt's granddaughter who also works at the [employer]) and Fariba (nurse) who confirm pt is a rn long term care resident under intermediate LOC. Fariba states pt can return over the weekend if medically ready. Gabby Toledo RN CM
--- NOTE | 2021-09-30 12:42 | CASEMGMT ---
This DAIN RAMIREZ contacted pt's daughter Adina Bartholomew, confirmed plan for pt to return to the [facility]. Adina states she can transport pt if discharged over the weekend but if discharged on Sunday or during the week a w/c transport will need to be arranged. Green sheet placed on pt's chart. Gabby Toledo RN CM
--- NOTE | 2021-09-30 15:20 | NURSING ---
augie valdez paving block cutter texted and updated on pt's change in cognition.
--- NOTE | 2021-09-30 16:13 | PCM.HOSP.N ---
Hospitalist Note Discussed patient's continue atrial fibrillation with RVR with Dr. Hart of cardiology. Per cardiology recommendations patient given 1 dose of IV digoxin 0.25 IV now which will be repeated in 6 hours. Patient was then will get a dose of digoxin 0.125 at 6 AM. Patient's metoprolol increased to 12.5 3 times daily as well. Cardiology consult entered for Dr. Hart. Dr. Espinoza notified cardiology recommendations and is agreeable.
[2021-09-30] MEDS: Digoxin 250 MCG/ML Ampul IV ×2 (16:44→20:34)
[2021-09-30] MEDS: MELATONIN 10 MG TABLET 5 MG PO (22:41)
[2021-09-30] MEDS: traZODone 50 MG Tablet PO (22:41)
[2021-09-30] MEDS: Enoxaparin 40 MG/0.4 ML Syringe SC (22:48)
[2021-10-01] VITALS (12 sets, daily range): BP systolic 114–125; BP diastolic 72–96; PULSE 53–109; RESP 16–18; TEMP 36.1–36.9; O2SAT 94–98
[2021-10-01] MEDS: Metoprolol Tartrate 25 MG Tablet 12.5 MG PO ×3 (05:14→22:47)
[2021-10-01] MEDS: Digoxin 250 MCG/ML Ampul 125 MCG IV (05:14)
[2021-10-01] MEDS: 0.9% Saline Lock 10 ML Syringe IV ×3 (05:15→15:44)
[2021-10-01] MEDS: Acetaminophen 325 MG Tablet 650 MG PO (05:24)
[2021-10-01 06:25] LABS: Absolute Lymphocyte Count 1.16 X10^3/uL (0.83-4.51); Absolute Neutrophil Count 5.2 X10^3/uL (2.0-7.7); Basophil# 0.03 X10^3/uL; Basophil% 0.4 % (0-1); Eosinophil# 0.05 X10^3/uL; Eosinophils% 0.7 % (0-5); Hematocrit 37.9 % (37-47); Hemoglobin 12.6 g/dL (12.0-15.0); Lymphocyte # 1.16 X10^3/ul (0.83-4.51); Lymphocyte % 17.2 % (19-41); Mean Corp Hgb Conc 33.2 g/dL (32-36); Mean Corpuscular Hgb 28.9 pg (27.0-32.0); Mean Corpuscular Volume 86.9 fL (81-99); Mean Platelet Vol. 9.4 fl (6.2-12.0); Monocyte# 0.33 X10^3/uL; Monocyte% 4.9 % (0-10); NRBC Flagged by Analyzer 0 % (0-5); Neutrophil # 5.17 X10^3/uL (2.7-7.7); Neutrophil % 76.7 % (47-70); Platelet Count 172 K/mm3 (150-450); RBC Distribution Width CV 13.3 % (11.6-14.6); RBC Distribution Width SD 42.3 fl (35.1-43.9); Red Blood Count 4.36 M/mm3 (4.2-5.4); White Blood Count 6.8 K/mm3 (4.4-11.0)
[2021-10-01 06:54] LABS: Anion Gap 8 (5-15); BUN 14 mg/dL (7-18); BUN/Creat Ratio 20.2 RATIO (10-20); Chloride 108 mmol/L (98-107); Creatinine, Serum 0.69 mg/dL (0.55-1.02); EST Glomerular Filtration Rate 87 mL/min (>60); Est Glom Filt Rate - Afr Amer 106 mL/min (>60); Estimated Creatinine Clearance 40.68 ml/min; Glucose 104 mg/dL (74-106); Potassium 2.9 mmol/L (3.5-5.1); Sodium Level 143 mmol/L (136-145)
[2021-10-01] MEDS: Furosemide 40 MG Tablet PO ×2 (10:29→22:42)
[2021-10-01] MEDS: Enoxaparin 40 MG/0.4 ML Syringe SC (10:29)
[2021-10-01] MEDS: Pramipexole Di-HCl 1 MG Tablet PO (10:29)
[2021-10-01] MEDS: Carbidopa/Levodopa 25/250 Tablet PO ×4 (10:29→22:43)
[2021-10-01] MEDS: Nystatin Powder 15gm Bottle 1 APPLIC TOPICAL ×2 (10:30→22:43)
[2021-10-01] MEDS: Potassium Chloride 10mEq/100mL 10 MEQ/100 ML IV.SOLN. 100 MEQ IV BOLUS (10:45)
--- NOTE | 2021-10-01 10:55 | PN.HOSP_ITS ---
Subjective Subjective Patient seen and examined. Daughter was by her bedside. She had no active complaints. She is alert but is confused. Pulse rate is 104 today. She denies lightheadedness or dizziness. Cardiology was consulted yesterday Objective Data Objective Data Vital Signs: Vital Signs Temp Pulse Resp BP Pulse Ox 97.0 F L 104 H 16 125/91 H 97 10/01/21 08:50 10/01/21 08:50 10/01/21 08:50 10/01/21 08:50 10/01/21 08:50 Oxygen Delivery Method Room Air Weight: 166 lb 3.657 oz Body Mass Index (BMI) 28.5 Intake & Output: Intake and Output for Last 24 Hours 09/29/21 09/30/21 10/01/21 23:59 23:59 23:59 Intake Total 1120 / 1120 880 / 880 0 / 0 Balance 1120 / 1120 880 / 880 0 / 0 Lab / Micro Data Result Diagrams: 10/01/21 05:50 10/01/21 05:50 Labs: Laboratory Results - last 24 hr 10/01/21 05:50: WBC 6.8, RBC 4.36, Hgb 12.6, Hct 37.9, MCV 86.9, MCH 28.9, MCHC 33.2, RDW Std Deviation 42.3, RDW Coeff of Bob 13.3, Plt Count 172, MPV 9.4, Immature Gran % (Auto) 0.100, Neut % (Auto) 76.7 H, Lymph % (Auto) 17.2 L, [place] % (Auto) 4.9, Eos % (Auto) 0.7, Baso % (Auto) 0.4, Absolute Neuts (auto) 5.2, Absolute Lymphs (auto) 1.16, Nucleated RBC % 0 10/01/21 05:50: Sodium 143, Potassium 2.9 L, Chloride 108 H, Carbon Dioxide 27.0, Anion Gap 8, BUN 14, Creatinine 0.69, Estim Creat Clear Calc 40.68, Est GFR (MDRD) Af Amer 106, Est GFR (MDRD) Non-Af 87, BUN/Creatinine Ratio 20.2 H, Glucose 104, Calcium 8.0 L 10/01/21 05:50: Magnesium 2.0 Physical Exam Const alert Orientation / Consciousness: confused Exam Limitations: no limitations and altered mental status HEENT head/scalp atraumatic and moist oral mucous membranes Head and Scalp: normocephalic Eyes PERRL, EOMs intact bilaterally and conjunctivae normal Neck no lymphadenopathy Resp normal respiratory effort, no retractions and no use of accessory muscles Cardio Cardio Narrative: tachycardic, afib. GI normal to inspection, nondistended, normoactive bowel sounds, soft to palpation, non-tender and non-distended Extremity normal to inspection, full ROM and no clubbing, cyanosis or edema Peripheral Pulses: Yes pulses 2+ throughout Skin Skin Narrative: has resolving bruise over her right eye Neuro Neuro Narrative: confused Sensorium / Orientation: awake and alert Assessment & Plan Assessment/Plan (1) Atrial fibrillation: QUALIFIERS: Atrial fibrillation type: longstanding persistent Qualified Code(s): I48.11 - Longstanding persistent atrial fibrillation (2) Fall: QUALIFIERS: Encounter type: initial encounter Qualified Code(s): W19.XXXA - Unspecified fall, initial encounter PLAN: #Afib * remains in afib and tachycardic * 2D echo showed EF of 65% * cardiology consulted; patient given digoxin per cardiology rec's * metoprolol increased to 12.5mg tid. * await cardiology evaluation * on lovenox for anticoagulation * #Elevated TSH * TSH elevated at 5.26, and free T4 is 1.54. * will repeat labs once active illness is over to confirm that they are still elevated. If they are, will refer to endocrinology. #nonstemi * troponin was 260 on admisison, and trended downwards to 234. * on lovenox therapuetic dose * 2D echo as above. She hasnt had any chest pain * cardiology consulted * #Hypokalemia:K is 2.9 today. Will replace aggressively and trend. Mg is 2. #Parkinsons's disease: * on carbidopa/levodopa. * Was recently started on Nuplazid, patient was read to be getting more confused according to her daughter. Side effects of Nuplazid is confusion as well as arrhythmias. * Nuplazid currently on hold. * Patient's daughter counseled that we will discontinue it and she is to follow- up with her neurologist for this to be resumed or otherwise. #Dementia: stable. #Mechanical falls: PT/OT on board. Fall precaution DVT prophylaxis: on lovenox therapeutic dose as thromboprophylaxis for afib. Charges/Coding Visit Charges Inpatient E&M: 36320 Subs Hosp L3
[2021-10-01] MEDS: Potassium Chloride Oral Soln 20 MEQ/15 ML UDC 60 MEQ PO (11:45)
[2021-10-01] MEDS: Ondansetron 4 MG/2 ML Vial IV (15:44)
--- NOTE | 2021-10-01 19:48 | CON.PCM.CA_ITS ---
HPI Consult Data Date of Consult: 10/01/21 HPI Narrative HPI Narrative: ROBB CHAVEZ, is a 76 F who presents, per ER notes ,Patient presenting with headache and states that she has had this for couple of days since she had a mechanical fall at home. She relates that she has Parkinson's. Patient does state that she has had some dizziness with standing. Patient initially sent for CT brain and CT maxillofacial. It was noted that her heart rate was 128. EKG was ordered as well as lab work. CT of the brain shows no acute intracranial process however the CT of the facial bones does show a nondisplaced fracture of the zygomatic arch, nondisplaced hairline and minimally displaced oblique fractures through the left posterior orbital wall and lateral wall respectively, and a small oblique fractures also seen through the left posterior aspect of the sella turcica with minimal displacement, although age indeterminate. I spoke with Chuck newell regarding the sella turcica fracture. I spoke with the transfer line who referred the case to Dr. Nieves who is on- call for trauma. He reviewed the case and did not believe the patient needed to be transferred for her facial bone fractures but did request that neurosurgery evaluate the images. Dr. Cross who is on-call for neurosurgeon she did review the images and felt that this was small and likely not acute and did not need transfer after 3 days status post injury. The follow-up physician would be a plastic surgeon for this and his name was given to me is Dr. Isauro Cruz. His phone number is area code [phone]. Patient's heart rate was evaluated his EKG and she is found to be in atrial fibrillation with a ventricular rate of 131 bpm. Patient is given 20 of Cardizem and a liter of IV fluids and her heart rate did respond to 91. She states she has a history of A. fib in her past. Blood work is obtained and her CBC and CMP are unremarkable. PT/INR normal. EtOH and drug abuse screen were obtained for trauma clearance and these are negative. High-sensitivity troponin initially is 260. She states that she does not have any chest pain so I speculate as to whether this was an elevated troponin due to her heart rate being fast and this may be contributing to her lightheadedness which is making her fall. Since she does not need transport to a trauma center I spoke with the hospitalist at [facility] who accepted the patient for new onset A. fib. Patient was noted to be in atrial fibrillation with rapid ventricular rate in the emergency department. She does not complain of any palpitations chest discomfort pressure tightness or heaviness however she does have significant cognitive impairment. She knows that she is in the hospital. She understands that she tends to fall. Troponin was mildly elevated flat pattern, laboratory data notable for potassium about 2.5. Medications were reviewed. I was consulted regarding the elevated troponin and the atrial fibrillation. I reviewed her echocardiogram which shows overall preserved LV systolic function. Patient is DNR CCA, no intubation Medications and allergies noted Patient reports no nausea or vomiting, does not report much in the way of symptoms however review of systems is unreliable in her case and is done by way of chart review. On physical examination she has extensive ecchymosis around her right orbit she has low BMI she has kyphoscoliosis I did not appreciate carotid bruit her lungs are clear heart sounds are regular without murmur rub or gallop breath sounds and heart sounds are distant there is extensive ecchymosis surrounding the right eye and in the right orbit abdomen is soft and nontender extremities showed no edema. Assessment: 1. Newly documented atrial fibrillation with suboptimal optimal rate control 2. The chart reports that patient has prior history of atrial fibrillation 3. Patient is at high fall risk. 4. Iatrogenic hypokalemia she is on Lasix 40 mg twice daily 5. Have to exclude orthostatic hypotension given her Parkinson's disease, medications for Parkinson's disease, the fact that she is on twice daily Lasix, makes 1 consider intravascular volume depletion as well. 6. Ideally she needs anticoagulation, but in her case risk of fall is prohibitive and I would hold off. 7. As far as the elevated troponin goes, acute coronary syndrome is not suspected, patient is not having any symptoms, conservative care is recommended. Echocardiogram has been reviewed and report is in chart. Recommendations: 1. Gentle hydration 2. Down titrate diuretics 3. Initially not much room for beta-blockers, hence used metoprolol 12.5 mg p.o. 3 times daily and digitalized to the patient, personally discussed with RODOLFO Brooke. 4. Her heart rate has improved, but may go up when she moves around. 5. Keep potassium greater than 4 magnesium greater than 2 6. Please check orthostatics, if she remains orthostatic, we may have to add ProAmatine provided she has no contraindications such as glaucoma or severe constipation. 7. Primary goal is patient comfort. 8. For persistent heart rate greater than 100-1 10, can add digoxin 0.125 mg p.o. daily and increase metoprolol to 25 mg p.o. 3 times daily blood pressure is greater than 100 mmHg. 9. For orthostatic hypotension when should also consider compression stockings, can add ProAmatine if needed. Thank you for allowing me to participate in this patient's care, please do not hesitate to call if further questions arise. Consult was provided yesterday, this is a late note entry. [facility] Medical History (Updated 09/30/21 @ 10:36 by KG Valdez) Dementia Depression GERD (gastroesophageal reflux disease) Parkinson's disease Home Medications acetaminophen 325 mg PO QHS 09/29/21 [History Last Taken Unknown] acetaminophen 650 mg PO Q4H PRN 09/29/21 [History Last Taken Unknown] bisacodyl 10 mg [place] DAILY PRN 09/29/21 [History Last Taken Unknown] carbidopa-levodopa 1 tab PO 4X/DAY 09/29/21 [History Last Taken Unknown] cholecalciferol (vitamin D3) 1,250 mcg PO THSA 09/29/21 [History Last Taken Unknown] cholestyramine-aspartame [Prevalite] 4 g PO DAILY PRN PRN 09/29/21 [History Last Taken Unknown] cyanocobalamin (vitamin B-12) 1,000 mcg PO DAILY 09/29/21 [History Last Taken Unknown] furosemide 40 mg PO BID 09/29/21 [History Last Taken Unknown] gabapentin 600 mg PO BID 09/29/21 [History Last Taken Unknown] gabapentin 800 mg PO QHS 09/29/21 [History Last Taken Unknown] guaifenesin [Ewelina-Tussin] 200 mg PO Q4H PRN 09/29/21 [History Last Taken Unknown] magnesium hydroxide [Milk of Magnesia] 30 ml PO DAILY PRN 09/29/21 [History Last Taken Unknown] meclizine 12.5 mg PO TID PRN 09/29/21 [History Last Taken Unknown] melatonin 5 mg PO QHS 09/29/21 [History Last Taken Unknown] mineral oil [Enema] 118 ml [place] DAILY PRN 09/29/21 [History Last Taken Unknown] nystatin 1 unit PO TID 09/29/21 [History Last Taken Unknown] omeprazole 20 mg PO DAILY 09/29/21 [History Last Taken Unknown] ondansetron HCl 4 mg PO Q6H PRN 09/29/21 [History Last Taken Unknown] pimavanserin [Nuplazid] 34 mg PO DAILY 09/29/21 [History Last Taken Unknown] potassium chloride 40 meq PO BID 09/29/21 [History Last Taken Unknown] ropinirole 2 mg PO DAILY 09/29/21 [History Last Taken Unknown] simethicone 125 mg PO BID 09/29/21 [History Last Taken Unknown] sumatriptan succinate 100 mg PO Q2H PRN 09/29/21 [History Last Taken Unknown] trazodone 50 mg PO QHS 09/29/21 [History Last Taken Unknown] Allergy/AdvReac Type Severity Reaction Status Date / Time iodine Allergy PT UNSURE Verified 09/29/21 16:13 OF REACTION Sulfa (Sulfonamide Allergy PT UNSURE Verified 09/29/21 16:13 Antibiotics) OF REACTION Social History Smoking Status: Never smoker Risk Stratification Risk Stratification Applicable: No Objective Data Vital Signs: Vital Signs Temp Pulse Resp BP Pulse Ox 98.4 F 100 16 122/76 H 96 10/01/21 15:28 10/01/21 15:31 10/01/21 15:28 10/01/21 15:28 10/01/21 15:28 Oxygen Delivery Method Room Air Weight: 166 lb 3.657 oz Body Mass Index (BMI) 28.5 Intake & Output: Intake and Output for Last 24 Hours 09/29/21 09/30/21 10/01/21 23:59 23:59 23:59 Intake Total 1120 / 1120 880 / 880 505 / 505 Balance 1120 / 1120 880 / 880 505 / 505 Lab / Micro Data Result Diagrams: 10/01/21 05:50 10/01/21 05:50 Labs: Laboratory Results - last 24 hr 10/01/21 05:50: WBC 6.8, RBC 4.36, Hgb 12.6, Hct 37.9, MCV 86.9, MCH 28.9, MCHC 33.2, RDW Std Deviation 42.3, RDW Coeff of Bob 13.3, Plt Count 172, MPV 9.4, Immature Gran % (Auto) 0.100, Neut % (Auto) 76.7 H, Lymph % (Auto) 17.2 L, [place] % (Auto) 4.9, Eos % (Auto) 0.7, Baso % (Auto) 0.4, Absolute Neuts (auto) 5.2, Absolute Lymphs (auto) 1.16, Nucleated RBC % 0 10/01/21 05:50: Sodium 143, Potassium 2.9 L, Chloride 108 H, Carbon Dioxide 27.0, Anion Gap 8, BUN 14, Creatinine 0.69, Estim Creat Clear Calc 40.68, Est GFR (MDRD) Af Amer 106, Est GFR (MDRD) Non-Af 87, BUN/Creatinine Ratio 20.2 H, Glucose 104, Calcium 8.0 L 10/01/21 05:50: Magnesium 2.0 Cardiology Labs/Tests 10/01/21 05:50: WBC 6.8, RBC 4.36, Hgb 12.6, Hct 37.9, MCV 86.9, MCH 28.9, MCHC 33.2, Plt Count 172, MPV 9.4, Immature Gran % (Auto) 0.100, Neut % (Auto) 76.7 H , Lymph % (Auto) 17.2 L, [place] % (Auto) 4.9, Eos % (Auto) 0.7, Baso % (Auto) 0.4, Absolute Neuts (auto) 5.2, Nucleated RBC % 0 10/01/21 05:50: Sodium 143, Potassium 2.9 L, Chloride 108 H, Carbon Dioxide 27.0, Anion Gap 8, BUN 14, Creatinine 0.69, Est GFR (MDRD) Af Amer 106, Est GFR (MDRD) Non-Af 87, BUN/Creatinine Ratio 20.2 H, Glucose 104, Calcium 8.0 L 10/01/21 05:50: Magnesium 2.0 Rhythm: EKG: ECHO: Stress Test: Cardiac Cath: PCI: CT Surgery: Holter monitor: EPS: PPM: CXR: Chest CT Scan:
--- NOTE | 2021-10-01 20:02 | PCM.PN.CARD ---
Subjective Subjective Patient reports no chest pressure tightness or heaviness. However history is somewhat unreliable because of her memory issues. She does know that she is in [facility]. Objective Data Patient appears comfortable, she is sitting in her recliner chair, she does not appear to be in any distress. She remains in atrial fibrillation with ventricular rate in the 100 200-1 10 range, occasionally 115, blood pressure is hovering in the 120s systolic. She has extensive ecchymosis surrounding her right orbit and the right side of the face, her lungs are clear with distant breath sounds heart sounds are irregular and distant and extremities show no edema. Assessment: 1. Multiple falls 2. Atrial fibrillation 3. Preserved LV systolic function 4. Not a candidate for anticoagulation because of prohibitive fall risk 5. Parkinson's disease-this may be contributing to the falls, along with some of her medications for Parkinson's disease 6. She was on 40 twice daily of Lasix, with iatrogenic hypokalemia and possibility of intravascular volume depletion. 7. Fragility 8. Primary goal is conservative care aimed at patient comfort Recommendations: 1. Digoxin 0.125 mg p.o. daily 2. Check orthostatics 3. Could try to increase metoprolol tartrate to 12.5 mg p.o. 3 times daily or 4 times daily as tolerated 4. Keep potassium greater than 4 and magnesium greater than 2 5. Compression stockings 6. Could use ProAmatine if there are no major contraindications, and the patient has significant orthostatic hypotension. 7. Limit diuretics as much as possible Vital Signs: Vital Signs Temp Pulse Resp BP Pulse Ox 98.4 F 100 16 122/76 H 96 10/01/21 15:28 10/01/21 15:31 10/01/21 15:28 10/01/21 15:28 10/01/21 15:28 Oxygen Delivery Method Room Air Weight: 166 lb 3.657 oz Body Mass Index (BMI) 28.5 Intake & Output: Intake and Output for Last 24 Hours 09/29/21 09/30/21 10/01/21 23:59 23:59 23:59 Intake Total 1120 / 1120 880 / 880 505 / 505 Balance 1120 / 1120 880 / 880 505 / 505 Lab / Micro Data Result Diagrams: 10/01/21 05:50 10/01/21 05:50 Labs: Laboratory Results - last 24 hr 10/01/21 05:50: WBC 6.8, RBC 4.36, Hgb 12.6, Hct 37.9, MCV 86.9, MCH 28.9, MCHC 33.2, RDW Std Deviation 42.3, RDW Coeff of Bob 13.3, Plt Count 172, MPV 9.4, Immature Gran % (Auto) 0.100, Neut % (Auto) 76.7 H, Lymph % (Auto) 17.2 L, [place] % (Auto) 4.9, Eos % (Auto) 0.7, Baso % (Auto) 0.4, Absolute Neuts (auto) 5.2, Absolute Lymphs (auto) 1.16, Nucleated RBC % 0 10/01/21 05:50: Sodium 143, Potassium 2.9 L, Chloride 108 H, Carbon Dioxide 27.0, Anion Gap 8, BUN 14, Creatinine 0.69, Estim Creat Clear Calc 40.68, Est GFR (MDRD) Af Amer 106, Est GFR (MDRD) Non-Af 87, BUN/Creatinine Ratio 20.2 H, Glucose 104, Calcium 8.0 L 10/01/21 05:50: Magnesium 2.0 Cardiology Labs/Tests 10/01/21 05:50: WBC 6.8, RBC 4.36, Hgb 12.6, Hct 37.9, MCV 86.9, MCH 28.9, MCHC 33.2, Plt Count 172, MPV 9.4, Immature Gran % (Auto) 0.100, Neut % (Auto) 76.7 H, Lymph % (Auto) 17.2 L, [place] % (Auto) 4.9, Eos % (Auto) 0.7, Baso % (Auto) 0.4, Absolute Neuts (auto) 5.2, Nucleated RBC % 0 10/01/21 05:50: Sodium 143, Potassium 2.9 L, Chloride 108 H, Carbon Dioxide 27.0, Anion Gap 8, BUN 14, Creatinine 0.69, Est GFR (MDRD) Af Amer 106, Est GFR (MDRD) Non-Af 87, BUN/Creatinine Ratio 20.2 H, Glucose 104, Calcium 8.0 L 10/01/21 05:50: Magnesium 2.0 Rhythm: EKG: ECHO: Stress Test: Cardiac Cath: PCI: CT Surgery: Holter monitor: EPS: PPM: CXR: Chest CT Scan:
[2021-10-01] MEDS: Enoxaparin 80 MG/0.8 ML Syringe 70 MG SC (22:42)
[2021-10-01] MEDS: MELATONIN 10 MG TABLET 5 MG PO (22:42)
[2021-10-01] MEDS: traZODone 50 MG Tablet PO (22:42)
[2021-10-02] VITALS (13 sets, daily range): BP systolic 83–120; BP diastolic 60–78; PULSE 79–130; RESP 18; TEMP 36.2–36.9; O2SAT 97–99
[2021-10-02] MEDS: Metoprolol Tartrate 25 MG Tablet 12.5 MG PO ×2 (06:23→20:37)
[2021-10-02 06:26] LABS: Absolute Lymphocyte Count 0.96 X10^3/uL (0.83-4.51); Absolute Neutrophil Count 5.1 X10^3/uL (2.0-7.7); Basophil# 0.02 X10^3/uL; Basophil% 0.3 % (0-1); Eosinophil# 0.05 X10^3/uL; Eosinophils% 0.8 % (0-5); Hematocrit 39.8 % (37-47); Lymphocyte # 0.96 X10^3/ul (0.83-4.51); Lymphocyte % 14.8 % (19-41); Mean Corp Hgb Conc 32.7 g/dL (32-36); Mean Corpuscular Hgb 28.7 pg (27.0-32.0); Mean Corpuscular Volume 87.9 fL (81-99); Mean Platelet Vol. 9.9 fl (6.2-12.0); Monocyte# 0.33 X10^3/uL; Monocyte% 5.1 % (0-10); NRBC Flagged by Analyzer 0 % (0-5); Neutrophil # 5.12 X10^3/uL (2.7-7.7); Neutrophil % 78.7 % (47-70); Platelet Count 187 K/mm3 (150-450); RBC Distribution Width CV 13.2 % (11.6-14.6); RBC Distribution Width SD 42.5 fl (35.1-43.9); Red Blood Count 4.53 M/mm3 (4.2-5.4); White Blood Count 6.5 K/mm3 (4.4-11.0)
[2021-10-02 06:56] LABS: Anion Gap 7 (5-15); BUN 13 mg/dL (7-18); BUN/Creat Ratio 18.4 RATIO (10-20); Calcium,Total 7.9 mg/dL (8.5-10.1); Chloride 108 mmol/L (98-107); Creatinine, Serum 0.71 mg/dL (0.55-1.02); EST Glomerular Filtration Rate 85 mL/min (>60); Est Glom Filt Rate - Afr Amer 103 mL/min (>60); Estimated Creatinine Clearance 40.68 ml/min; Glucose 112 mg/dL (74-106); Sodium Level 139 mmol/L (136-145)
[2021-10-02] MEDS: Carbidopa/Levodopa 25/250 Tablet PO ×4 (08:04→21:58)
[2021-10-02] MEDS: Nystatin Powder 15gm Bottle 1 APPLIC TOPICAL ×2 (08:04→21:58)
[2021-10-02] MEDS: Furosemide 40 MG Tablet PO (08:04)
[2021-10-02] MEDS: Enoxaparin 80 MG/0.8 ML Syringe 70 MG SC (08:04)
[2021-10-02] MEDS: Pramipexole Di-HCl 1 MG Tablet PO (08:04)
[2021-10-02 11:25] LABS: Magnesium 2.2 mg/dL (1.6-2.6)
[2021-10-02] MEDS: Potassium Chloride Oral Tablet 20 MEQ 40 MEQ PO ×2 (12:23→17:13)
--- NOTE | 2021-10-02 13:32 | PN.HOSP_ITS ---
Subjective Subjective Patient seen and examined. Daughter was by her bedside. She had no active complaints. REview of systems was otherwise negative. Her BP is noted to be running low, in the 80s ystolic today. Objective Data Objective Data Vital Signs: Vital Signs Temp Pulse Resp BP Pulse Ox 97.1 F L 108 H 18 84/76 L 97 10/02/21 08:01 10/02/21 09:30 10/02/21 08:01 10/02/21 09:30 10/02/21 08:01 Oxygen Delivery Method Room Air Weight: 166 lb 3.657 oz Body Mass Index (BMI) 28.5 Intake & Output: Intake and Output for Last 24 Hours 09/30/21 10/01/21 10/02/21 23:59 23:59 23:59 Intake Total 880 / 880 505 / 505 Balance 880 / 880 505 / 505 Lab / Micro Data Result Diagrams: 10/02/21 05:38 10/02/21 05:38 Labs: Laboratory Results - last 24 hr 10/02/21 05:38: WBC 6.5, RBC 4.53, Hgb 13.0, Hct 39.8, MCV 87.9, MCH 28.7, MCHC 32.7, RDW Std Deviation 42.5, RDW Coeff of Bob 13.2, Plt Count 187, MPV 9.9, Immature Gran % (Auto) 0.300, Neut % (Auto) 78.7 H, Lymph % (Auto) 14.8 L, [place] % (Auto) 5.1, Eos % (Auto) 0.8, Baso % (Auto) 0.3, Absolute Neuts (auto) 5.1, Absolute Lymphs (auto) 0.96, Nucleated RBC % 0 10/02/21 05:38: Sodium 139, Potassium 3.0 L, Chloride 108 H, Carbon Dioxide 24.0, Anion Gap 7, BUN 13, Creatinine 0.71, Estim Creat Clear Calc 40.68, Est GFR (MDRD) Af Amer 103, Est GFR (MDRD) Non-Af 85, BUN/Creatinine Ratio 18.4, Glucose 112 H, Calcium 7.9 L 10/02/21 05:38: Magnesium 2.2 Physical Exam Const alert and no apparent distress General Appearance: cooperative and comfortable Orientation / Consciousness: oriented to person, oriented to place and lethargic Exam Limitations: no limitations and altered mental status HEENT normocephalic, head/scalp atraumatic and moist oral mucous membranes Head and Scalp: normocephalic Eyes PERRL, EOMs intact bilaterally, conjunctivae normal and no scleral icterus Neck no lymphadenopathy and supple Resp normal respiratory effort, normal air movement, no retractions, no use of accessory muscles and clear to auscultation bilaterally Effort and Inspection: able to speak in complete sentences and symmetric chest movement Cardio S1 normal heart sound, S2 normal heart sound and peripheral pulses 2+ throughout Cardio Narrative: tachycardic, afib. Rate: tachycardic Rhythm: abnormal rhythm irregularly irregular GI normal to inspection, nondistended, normoactive bowel sounds, soft to palpation, non-tender and non-distended Extremity normal to inspection, full ROM and no clubbing, cyanosis or edema Skin Skin Narrative: has resolving bruise over her right eye Neuro moves all extremities, no focal motor deficits and no sensory deficits noted Neuro Narrative: confused Sensorium / Orientation: awake, alert, oriented to person and oriented to place Psych affect normal Mood & Affect: flat affect Assessment & Plan Assessment/Plan (1) Atrial fibrillation: QUALIFIERS: Atrial fibrillation type: longstanding persistent Qualified Code(s): I48.11 - Longstanding persistent atrial fibrillation (2) Fall: QUALIFIERS: Encounter type: initial encounter Qualified Code(s): W19.XXXA - Unspecified fall, initial encounter PLAN: #Afib * remains in afib and tachycardic. BP running low today in the 80s systolic * 2D echo showed EF of 65% * cardiology consulted; patient given digoxin per cardiology rec's * will reduce metoprlol to 12.5mg bid. * cardiology on board; hold off on adding digoxin 0.125mg daily due to low BP today * on metoprolol 12.5mg tid; will dc lasix. * per cardiology, not a candidate for anticoagulation due to prohibitive fall risk. Will therefore dc lovenox. * to keep potassium >4 and Mg >2. * * #Elevated TSH * TSH elevated at 5.26, and free T4 is 1.54. * will repeat labs once active illness is over to confirm that they are still elevated. If they are, will refer to endocrinology. #nonstemi * troponin was 260 on admission, and trended downwards to 234. * on lovenox therapuetic dose. will dc to to high risk of falls. * 2D echo as above. She hasnt had any chest pain * cardiology on board: it was likely due to afib and rapid heart rate. * #Hypokalemia:K is 3 today. Will replace aggressively and trend. #Parkinsons's disease: * on carbidopa/levodopa. * Was recently started on Nuplazid, patient was read to be getting more confused according to her daughter. Side effects of Nuplazid is confusion as well as arrhythmias. * Nuplazid currently on hold. * Patient's daughter counseled that we will discontinue it and she is to follow- up with her neurologist for this to be resumed or otherwise. #Dementia: stable. #Mechanical falls: PT/OT on board. Fall precaution DVT prophylaxis: will dc lovenox as cardiology thinks her risk of falls is prohibitive. SCDs Charges/Coding Visit Charges Inpatient E&M: 33421 Subs Hosp L3
--- NOTE | 2021-10-02 15:33 | PN.CARD_ITS ---
Subjective Subjective Patient is resting in bed, much more awake compared to yesterday, answering a lot of questions appropriately. It appears that her short-term memory impairment waxes and wanes. Today I was able to discuss with daughter. Patient does not report any chest pressure tightness heaviness or palpitations She has been having falls, she does get dizzy, falls happen without any warning. I get the sense that her legs give way. It can happen if she starts moving or if she changes posture and sometimes erratically. Objective Data Patient is awake alert and following commands. Ecchymosis around the right orbit persists lungs are clear heart sounds are irregularly irregular abdomen is soft and extremities show no edema. Assessment: 1. Recurrent falls with injury 2. Falls are probably due to a combination of her Parkinson's disease, associated autonomic dysfunction, possible medication induced and possible volume depletion. She was on 40 twice daily of Lasix, daughter does not report history of lower extremity edema or shortness of breath. Lasix is now on hold. 3. Ideally she needs to be on anticoagulation, but given her fall risk I am hesitant to initiate. Discussed in detail with patient's daughter. She is now on full dose Lovenox and she is at the hospital 4. She had iatrogenic hypokalemia, which has improved with down titration or withholding of Lasix potassium supplementation 5. Ventricular rate is overall suboptimally controlled, we have been limited by borderline blood pressure. 6. Preserved LV systolic function. Recommendations: 1. Continue to hold furosemide 2. PT OT feasible 3. Discussed with patient's daughter and patient the pathophysiology of atrial fibrillation and the stroke risk, and methods to address stroke risk. She may be a candidate for watchman device, I brought it up with the daughter, patient will need cardiology follow-up to discuss this further. For now we will aim for rate control, and use aspirin. 4. Supplement potassium to keep serum potassium greater than 4. 5. Add digoxin 0.125 mg p.o. daily Vital Signs: Vital Signs Temp Pulse Resp BP Pulse Ox 97.1 F L 102 H 18 97/65 97 10/02/21 14:09 10/02/21 14:49 10/02/21 14:09 10/02/21 14:49 10/02/21 14:09 Oxygen Delivery Method Room Air Weight: 166 lb 3.657 oz Body Mass Index (BMI) 28.5 Intake & Output: Intake and Output for Last 24 Hours 09/30/21 10/01/21 10/02/21 23:59 23:59 23:59 Intake Total 880 / 880 505 / 505 240 / 240 Balance 880 / 880 505 / 505 240 / 240 Lab / Micro Data Result Diagrams: 10/02/21 05:38 10/02/21 05:38 Labs: Laboratory Results - last 24 hr 10/02/21 05:38: WBC 6.5, RBC 4.53, Hgb 13.0, Hct 39.8, MCV 87.9, MCH 28.7, MCHC 32.7, RDW Std Deviation 42.5, RDW Coeff of Bob 13.2, Plt Count 187, MPV 9.9, Immature Gran % (Auto) 0.300, Neut % (Auto) 78.7 H, Lymph % (Auto) 14.8 L, [place] % (Auto) 5.1, Eos % (Auto) 0.8, Baso % (Auto) 0.3, Absolute Neuts (auto) 5.1, Absolute Lymphs (auto) 0.96, Nucleated RBC % 0 10/02/21 05:38: Sodium 139, Potassium 3.0 L, Chloride 108 H, Carbon Dioxide 24.0, Anion Gap 7, BUN 13, Creatinine 0.71, Estim Creat Clear Calc 40.68, Est GFR (MDRD) Af Amer 103, Est GFR (MDRD) Non-Af 85, BUN/Creatinine Ratio 18.4, Glucose 112 H, Calcium 7.9 L 10/02/21 05:38: Magnesium 2.2 Cardiology Labs/Tests 10/02/21 05:38: WBC 6.5, RBC 4.53, Hgb 13.0, Hct 39.8, MCV 87.9, MCH 28.7, MCHC 32.7, Plt Count 187, MPV 9.9, Immature Gran % (Auto) 0.300, Neut % (Auto) 78.7 H , Lymph % (Auto) 14.8 L, [place] % (Auto) 5.1, Eos % (Auto) 0.8, Baso % (Auto) 0.3, Absolute Neuts (auto) 5.1, Nucleated RBC % 0 10/02/21 05:38: Sodium 139, Potassium 3.0 L, Chloride 108 H, Carbon Dioxide 24.0, Anion Gap 7, BUN 13, Creatinine 0.71, Est GFR (MDRD) Af Amer 103, Est GFR (MDRD) Non-Af 85, BUN/Creatinine Ratio 18.4, Glucose 112 H, Calcium 7.9 L 10/02/21 05:38: Magnesium 2.2 Rhythm: EKG: ECHO: Stress Test: Cardiac Cath: PCI: CT Surgery: Holter monitor: EPS: PPM: CXR: Chest CT Scan:
[2021-10-02] MEDS: MELATONIN 10 MG TABLET 5 MG PO (21:58)
[2021-10-02] MEDS: traZODone 50 MG Tablet PO (21:58)
[2021-10-03] VITALS (13 sets, daily range): BP systolic 91–126; BP diastolic 38–83; PULSE 76–134; RESP 16–20; TEMP 36.1–37; O2SAT 95–98
[2021-10-03] MEDS: Metoprolol Tartrate 25 MG Tablet 12.5 MG PO (05:31)
[2021-10-03 06:18] LABS: Absolute Lymphocyte Count 1.66 X10^3/uL (0.83-4.51); Absolute Neutrophil Count 4.8 X10^3/uL (2.0-7.7); Basophil# 0.02 X10^3/uL; Basophil% 0.3 % (0-1); Eosinophil# 0.09 X10^3/uL; Eosinophils% 1.3 % (0-5); Hematocrit 41.6 % (37-47); Hemoglobin 13.5 g/dL (12.0-15.0); Lymphocyte # 1.66 X10^3/ul (0.83-4.51); Lymphocyte % 23.6 % (19-41); Mean Corp Hgb Conc 32.5 g/dL (32-36); Mean Corpuscular Hgb 28.2 pg (27.0-32.0); Mean Corpuscular Volume 86.8 fL (81-99); Mean Platelet Vol. 9.4 fl (6.2-12.0); Monocyte# 0.43 X10^3/uL; Monocyte% 6.1 % (0-10); NRBC Flagged by Analyzer 0 % (0-5); Neutrophil # 4.81 X10^3/uL (2.7-7.7); Neutrophil % 68.4 % (47-70); Platelet Count 211 K/mm3 (150-450); RBC Distribution Width CV 13.3 % (11.6-14.6); Red Blood Count 4.79 M/mm3 (4.2-5.4)
[2021-10-03 06:42] LABS: Anion Gap 8 (5-15); BUN 16 mg/dL (7-18); BUN/Creat Ratio 20.1 RATIO (10-20); Calcium,Total 8.5 mg/dL (8.5-10.1); Chloride 109 mmol/L (98-107); EST Glomerular Filtration Rate 75 mL/min (>60); Est Glom Filt Rate - Afr Amer 90 mL/min (>60); Estimated Creatinine Clearance 50.85 ml/min; Glucose 101 mg/dL (74-106); Potassium 3.2 mmol/L (3.5-5.1); Sodium Level 143 mmol/L (136-145)
--- NOTE | 2021-10-03 08:43 | PCM.PN.CARD ---
Subjective Subjective Patient seen and evaluated. Events noted. Objective Data Vital Signs: Vital Signs Temp Pulse Resp BP Pulse Ox 97.0 F L 76 16 126/83 H 98 10/03/21 05:27 10/03/21 07:49 10/03/21 05:27 10/03/21 05:31 10/03/21 05:27 Oxygen Delivery Method Room Air Weight: 166 lb 3.657 oz Body Mass Index (BMI) 28.5 Intake & Output: Intake and Output for Last 24 Hours 10/01/21 10/02/21 10/03/21 23:59 23:59 23:59 Intake Total 505 / 505 480 / 720 360 / 360 Output Total 200 / 200 Balance 505 / 505 480 / 520 160 / 160 Lab / Micro Data Result Diagrams: 10/03/21 06:02 10/03/21 06:02 Labs: Laboratory Results - last 24 hr 10/02/21 05:38: Magnesium 2.2 10/03/21 06:02: WBC 7.0, RBC 4.79, Hgb 13.5, Hct 41.6, MCV 86.8, MCH 28.2, MCHC 32.5, RDW Std Deviation 42.0, RDW Coeff of Bob 13.3, Plt Count 211, MPV 9.4, Immature Gran % (Auto) 0.300, Neut % (Auto) 68.4, Lymph % (Auto) 23.6, [place] % (Auto) 6.1, Eos % (Auto) 1.3, Baso % (Auto) 0.3, Absolute Neuts (auto) 4.8, Absolute Lymphs (auto) 1.66, Nucleated RBC % 0 10/03/21 06:02: Sodium 143, Potassium 3.2 L, Chloride 109 H, Carbon Dioxide 26.0, Anion Gap 8, BUN 16, Creatinine 0.80, Estim Creat Clear Calc 50.85, Est GFR (MDRD) Af Amer 90, Est GFR (MDRD) Non-Af 75, BUN/Creatinine Ratio 20.1 H, Glucose 101, Calcium 8.5 Cardiology Labs/Tests 10/02/21 05:38: Magnesium 2.2 10/03/21 06:02: WBC 7.0, RBC 4.79, Hgb 13.5, Hct 41.6, MCV 86.8, MCH 28.2, MCHC 32.5, Plt Count 211, MPV 9.4, Immature Gran % (Auto) 0.300, Neut % (Auto) 68.4, Lymph % (Auto) 23.6, [place] % (Auto) 6.1, Eos % (Auto) 1.3, Baso % (Auto) 0.3, Absolute Neuts (auto) 4.8, Nucleated RBC % 0 10/03/21 06:02: Sodium 143, Potassium 3.2 L, Chloride 109 H, Carbon Dioxide 26.0, Anion Gap 8, BUN 16, Creatinine 0.80, Est GFR (MDRD) Af Amer 90, Est GFR (MDRD) Non-Af 75, BUN/Creatinine Ratio 20.1 H, Glucose 101, Calcium 8.5 Rhythm: EKG: ECHO: Stress Test: Cardiac Cath: PCI: CT Surgery: Holter monitor: EPS: PPM: CXR: Chest CT Scan: Physical Exam Const alert, oriented x3 and no apparent distress General Appearance: cooperative HEENT hearing grossly normal bilaterally Head and Scalp: atraumatic Eyes EOMs intact bilaterally Neck General: normal visual inspection Chest inspection of chest normal and palpation of chest normal Resp normal respiratory effort Auscultation: clear to auscultation bilaterally Cardio S1 normal heart sound and S2 normal heart sound Jugular Venous Distention: JVD Rhythm: abnormal rhythm GI normal to inspection, nondistended, normoactive bowel sounds Extremity normal capillary refill and no pedal edema Peripheral Pulses: Yes pulses 2+ throughout and femoral pulses present Skin no rashes or lesions noted Neuro oriented x3 and CN's II-XII intact bilaterally Psych Appearance: grossly normal and appropriate Assessment & Plan Assessment/Plan (1) Atrial fibrillation: QUALIFIERS: Atrial fibrillation type: longstanding persistent Qualified Code(s): I48.11 - Longstanding persistent atrial fibrillation PLAN: Patient appears to have atrial fibrillation which appears to be long-lasting. The plan would be to rate control her. Due to the fact that she is orthostatic I would recommend that we avoid the beta-emily for now. She cannot be anticoagulated at this time due to her recent fall. My suspicion is that her fall and orthostatic hypotension is likely secondary to her Parkinson's and other medications. She had been on a diuretic for reasons that are not entirely known especially with her preserved ejection fraction and normal pulmonary pressures. Echocardiogram assessing the ventricular function suggest that her EF is normal with mild mitral and tricuspid and aortic regurgitation. Continue to monitor blood pressures. I do not thus far see any evidence of significant tachycardia or bradycardia arrhythmias.
[2021-10-03] MEDS: Potassium Chloride Oral Tablet 20 MEQ 40 MEQ PO ×2 (09:28→17:42)
[2021-10-03] MEDS: Pramipexole Di-HCl 1 MG Tablet PO (09:29)
[2021-10-03] MEDS: Nystatin Powder 15gm Bottle 1 APPLIC TOPICAL ×2 (09:29→21:36)
[2021-10-03] MEDS: Carbidopa/Levodopa 25/250 Tablet PO ×4 (09:29→21:36)
--- NOTE | 2021-10-03 10:13 | CASEMGMT ---
Social Work Updated by Dr. Muller that patient is medically cleared for discharge today. Met with patient and patient daughter, Adina in room. Introduced self and social media marketing analyst role. Patient and Adina aware of plan for patient to discharge today and confirm plan for patient to discharge back to the [facility]. Adina plans to provide transportation. Telephone call to [facility]. [facility] updated on above. [facility] confirms that patient is able to return to the [facility] and plan to skill patient. [facility] request for updated clinicals to be faxed. No PASRR/[id number] needed as patient long-term resident at the [facility] since 2020. Updated clinicals faxed. Transfer sheet initiated. Proposed discharge date: 10/03/2021 PLAN: Return to the [facility] at skilled. Crystal Mack, JOSE CARLOS
--- NOTE | 2021-10-03 11:18 | PN.HOSP_ITS ---
Subjective Subjective Doing well, says that her dizziness has improved and she does have a history of vertigo and has been orthostatic likely secondary to medications and dehydration Objective Data Objective Data Vital Signs: Vital Signs Temp Pulse Resp BP Pulse Ox 97.0 F L 76 16 126/83 H 98 10/03/21 05:27 10/03/21 07:49 10/03/21 05:27 10/03/21 05:31 10/03/21 05:27 Oxygen Delivery Method Room Air Weight: 166 lb 3.657 oz Body Mass Index (BMI) 28.5 Intake & Output: Intake and Output for Last 24 Hours 10/02/21 10/03/21 10/04/21 03:59 03:59 03:59 Intake Total 505 / 505 720 / 720 120 / 120 Output Total 200 / 200 Balance 505 / 505 520 / 520 120 / 120 Lab / Micro Data Result Diagrams: 10/03/21 06:02 10/03/21 06:02 Labs: Laboratory Results - last 24 hr 10/02/21 05:38: Magnesium 2.2 10/03/21 06:02: WBC 7.0, RBC 4.79, Hgb 13.5, Hct 41.6, MCV 86.8, MCH 28.2, MCHC 32.5, RDW Std Deviation 42.0, RDW Coeff of Bob 13.3, Plt Count 211, MPV 9.4, Immature Gran % (Auto) 0.300, Neut % (Auto) 68.4, Lymph % (Auto) 23.6, [place] % (Auto) 6.1, Eos % (Auto) 1.3, Baso % (Auto) 0.3, Absolute Neuts (auto) 4.8, Absolute Lymphs (auto) 1.66, Nucleated RBC % 0 10/03/21 06:02: Sodium 143, Potassium 3.2 L, Chloride 109 H, Carbon Dioxide 26.0, Anion Gap 8, BUN 16, Creatinine 0.80, Estim Creat Clear Calc 50.85, Est GFR (MDRD) Af Amer 90, Est GFR (MDRD) Non-Af 75, BUN/Creatinine Ratio 20.1 H, Glucose 101, Calcium 8.5 Physical Exam Const alert, oriented x3 and no apparent distress Constitutional Narrative: Ecchymosis over her right eye General Appearance: cooperative HEENT normocephalic and moist oral mucous membranes Eyes PERRL, EOMs intact bilaterally and conjunctivae normal Neck supple and no JVD Resp normal respiratory effort, no retractions, no use of accessory muscles and clear to auscultation bilaterally Auscultation: Negative for crackles, rales, rhonchi or wheezes Cardio regular rate, S1 normal heart sound, S2 normal heart sound and no murmurs Rhythm: abnormal rhythm GI soft to palpation, non-tender and non-distended; Negative for hepatosplenomegaly Extremity no clubbing, cyanosis or edema Skin no rashes or lesions noted Neuro no focal motor deficits and no sensory deficits noted Psych affect normal Appearance: appropriate Assessment & Plan Assessment/Plan (1) Atrial fibrillation: QUALIFIERS: Atrial fibrillation type: longstanding persistent Qualified Code(s): I48.11 - Longstanding persistent atrial fibrillation (2) Fall: QUALIFIERS: Encounter type: initial encounter Qualified Code(s): W19.XXXA - Unspecified fall, initial encounter PLAN: #Afib * remains in afib and heart now normal * 2D echo showed EF of 65% * cardiology consulted; patient given digoxin per cardiology rec's * Discontinued metoprolol and transition to amiodarone * per cardiology, not a candidate for anticoagulation due to prohibitive fall risk. Will therefore dc lovenox. #Elevated TSH * TSH elevated at 5.26, and free T4 is 1.54. * will repeat labs once active illness is over to confirm that they are still elevated. If they are, will refer to endocrinology. #nonstemi * troponin was 260 on admission, and trended downwards to 234. * on lovenox therapuetic dose. will dc to to high risk of falls. * 2D echo as above. She hasnt had any chest pain * cardiology on board: it was likely due to afib and rapid heart rate. * #Hypokalemia:K is 3.2 today. Will replace aggressively and trend. #Parkinsons's disease/dementia: * on carbidopa/levodopa. * Was recently started on Nuplazid, patient was read to be getting more confused according to her daughter. Side effects of Nuplazid is confusion as well as arrhythmias, therefore this was discontinued * Patient's daughter counseled that we will discontinue it and she is to follow- up with her neurologist for this to be resumed or otherwise. #Mechanical falls: PT/OT on board. Fall precaution DVT: SCDs Charges/Coding Visit Charges Inpatient E&M: 09699 Subs Hosp L2
--- NOTE | 2021-10-03 12:11 | NURSING ---
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 jim pires in to visit. updated on med change to amiodorone today for afib. pt still confused but follows commands and reports no needs and that slept well last night. lungs clear. trace ankle edema noted. hr still afib on monitor and irreg and rate 110 at this time.
--- NOTE | 2021-10-03 12:22 | CASEMGMT ---
Social Work Per Dr. Muller, patient now not medically cleared for today. Spoke with patient and daughter in room, both aware of above. Daughter reports to still be able to transport patient tomorrow, if discharged and after 3:30pm. Telephone call to [facility]. No answer. Voicemail left with above information. Social Work to continue to follow. Crystal Baig MSW, JOSE CARLOS
[2021-10-03] MEDS: Amiodarone 200 MG Tablet PO ×2 (13:44→21:35)
[2021-10-03] MEDS: traZODone 50 MG Tablet PO (21:35)
[2021-10-03] MEDS: MELATONIN 10 MG TABLET 5 MG PO (21:35)
[2021-10-03] MEDS: dilTIAZem 25 MG/5 ML Vial 5 MG IV BOLUS (22:31)
[2021-10-03] MEDS: 0.9% Saline Lock 10 ML Syringe IV (22:31)
[2021-10-04] VITALS (7 sets, daily range): BP systolic 108–132; BP diastolic 63–78; PULSE 65–76; RESP 14–16; TEMP 36.4–36.7; O2SAT 96–99
--- NOTE | 2021-10-04 03:39 | NURSING ---
0300 this RN assuming care of pt at this time
[2021-10-04] MEDS: Amiodarone 200 MG Tablet PO ×2 (05:11→13:00)
[2021-10-04 06:24] LABS: Absolute Lymphocyte Count 1.29 X10^3/uL (0.83-4.51); Absolute Neutrophil Count 5.2 X10^3/uL (2.0-7.7); Basophil# 0.02 X10^3/uL; Basophil% 0.3 % (0-1); Eosinophils% 1.4 % (0-5); Hematocrit 38.9 % (37-47); Hemoglobin 12.6 g/dL (12.0-15.0); Lymphocyte # 1.29 X10^3/ul (0.83-4.51); Lymphocyte % 18.2 % (19-41); Mean Corp Hgb Conc 32.4 g/dL (32-36); Mean Corpuscular Hgb 28.4 pg (27.0-32.0); Mean Corpuscular Volume 87.6 fL (81-99); Mean Platelet Vol. 9.9 fl (6.2-12.0); Monocyte# 0.43 X10^3/uL; Monocyte% 6.1 % (0-10); NRBC Flagged by Analyzer 0 % (0-5); Neutrophil % 73.6 % (47-70); Platelet Count 190 K/mm3 (150-450); RBC Distribution Width CV 13.3 % (11.6-14.6); RBC Distribution Width SD 42.3 fl (35.1-43.9); Red Blood Count 4.44 M/mm3 (4.2-5.4); White Blood Count 7.1 K/mm3 (4.4-11.0)
[2021-10-04 06:55] LABS: Anion Gap 7 (5-15); BUN 17 mg/dL (7-18); BUN/Creat Ratio 25.8 RATIO (10-20); Calcium,Total 8.4 mg/dL (8.5-10.1); Chloride 109 mmol/L (98-107); Creatinine, Serum 0.66 mg/dL (0.55-1.02); EST Glomerular Filtration Rate 93 mL/min (>60); Est Glom Filt Rate - Afr Amer 112 mL/min (>60); Estimated Creatinine Clearance 40.68 ml/min; Glucose 84 mg/dL (74-106); Potassium 3.4 mmol/L (3.5-5.1); Sodium Level 141 mmol/L (136-145)
[2021-10-04] MEDS: Potassium Chloride Oral Tablet 20 MEQ 40 MEQ PO (08:33)
[2021-10-04] MEDS: Carbidopa/Levodopa 25/250 Tablet PO ×2 (08:33→13:00)
[2021-10-04] MEDS: Pramipexole Di-HCl 1 MG Tablet PO (08:33)
[2021-10-04] MEDS: Nystatin Powder 15gm Bottle 1 APPLIC TOPICAL (08:35)
--- NOTE | 2021-10-04 11:54 | CASEMGMT ---
Per physician patient is ready for discharge back to [facility] today. BALJINDER called [facility] and let [facility] know patient will be returning today. Karmen CASTILLO
--- NOTE | 2021-10-04 15:19 | PCM.TXEXTCAR ---
Diet 09/29/21 23:12 Diet: Cardiac - Heart Healthy Food consistency:: Regular Liquid Consistency:: Regular/Thin Is pt able to select menu?: Yes Routine Orders/Code Status Routine Lab Work: CBC and BMP Code Status: DNRCC-A Therapies Physical Therapy: Eval and Treat Occupational Therapy: Eval and Treat Problem/Diagnosis (1) Atrial fibrillation: Status: Acute (2) Fall: Status: Acute Allergies/Procedures Done in Hospital Allergies iodine Allergy (Verified 09/29/21 16:13) PT UNSURE OF REACTION Sulfa (Sulfonamide Antibiotics) Allergy (Verified 09/29/21 16:13) PT UNSURE OF REACTION Procedures: 2-D Echocardiogram Type of Care/Length of Stay Estimated LOS: More Than 30 Days Type of Care Needed: Skilled Rehab Potential: Good Prognosis: Good Additional Orders/Day of Discharge Day of Discharge: 10/04/21 Discharge Plan Admission Admit Date/Time: 09/29/21 23:26 Attending Provider: Keny Muller Primary Care Provider: Marty Rodrigues Consulting Providers: Eugenia Hart Discharge Orders/Prescriptions Prescriptions: New amiodarone 200 mg Tablet 200 mg PO BID Qty: 0 RF: 0 Continued trazodone 50 mg Tablet 50 mg PO QHS RF: 0 carbidopa-levodopa 25-250 mg Tablet 1 tab PO 4X/DAY RF: 0 sumatriptan succinate 100 mg Tablet 100 mg PO Q2H PRN (Reason: Migraine Headache) RF: 0 ondansetron HCl 4 mg Tablet 4 mg PO Q6H PRN (Reason: Nausea) RF: 0 simethicone 125 mg Capsule 125 mg PO BID RF: 0 meclizine 12.5 mg Tablet 12.5 mg PO TID PRN (Reason: Vertigo) RF: 0 acetaminophen 650 mg Tablet 650 mg PO Q4H PRN (Reason: PAIN/FEVER) RF: 0 guaifenesin [Ewelina-Tussin] 100 mg/5 mL Liquid 200 mg PO Q4H PRN (Reason: Cough) RF: 0 mineral oil Enema 118 ml OH DAILY PRN (Reason: Constipation) RF: 0 magnesium hydroxide [Milk of Magnesia] 400 mg/5 mL Suspension 30 ml PO DAILY PRN (Reason: Constipation) RF: 0 potassium chloride 40 mEq/15 mL Liquid 40 meq PO BID RF: 0 bisacodyl 10 mg Suppository 10 mg OH DAILY PRN (Reason: Constipation) RF: 0 ropinirole 2 mg Tablet 2 mg PO DAILY RF: 0 nystatin 500 million unit Powder 1 unit PO TID RF: 0 acetaminophen 325 mg Capsule 325 mg PO QHS RF: 0 cholecalciferol (vitamin D3) 1,250 mcg (50,000 unit) Capsule 1,250 mcg PO THSA RF: 0 Prevalite 4 gram Powder 4 g PO DAILY PRN PRN (Reason: Diarrhea) RF: 0 omeprazole 20 mg Tablet,Delayed Release (Dr/Ec) 20 mg PO DAILY RF: 0 melatonin 5 mg Tablet 5 mg PO QHS RF: 0 cyanocobalamin (vitamin B-12) 1,000 mcg Capsule 1,000 mcg PO DAILY RF: 0 Held gabapentin 600 mg Tablet 600 mg PO BID RF: 0 Hold Instructions: Resume on 10/12/21. gabapentin 800 mg Tablet 800 mg PO QHS RF: 0 Hold Instructions: Resume on 10/12/21. Discontinued furosemide 40 mg Tablet 40 mg PO BID RF: 0 Nuplazid 34 mg Capsule 34 mg PO DAILY RF: 0 Referrals / Follow Up: Marty Rodrigues MD [Primary Care Provider] - Within 1 Week Disposition Disposition (needs filled in before D/C Order can be placed): Nursing Home Facility
--- NOTE | 2021-10-04 15:34 | CASEMGMT ---
SW called patient's daughter, Adina and she is aware patient will be returning to [facility] today. Adina will be at [facility] in a little bit to take patient back to [facility]. Await orders to fax to [facility]. Karmen CASTILLO
--- NOTE | 2021-10-04 17:06 | NURSING ---
Report called to the [facility] to nurse Beverley.
--- NOTE | 2021-10-04 18:06 | DS.PCM_ITS ---
Providers Date of Admission: 09/29/21 Primary Care Physician: Dr. Marty Rodrigues MD Consultations 09/30/21 16:13 Consult: Cardiology Routine Consulting Provider: Eugenia Hart Reason for Consult: AFIB with RVR EMERGENT Consult: No MD Notified: Yes Date Notified: 09/30/21 Time Notified: 16:13 Method of Notification: Provider Initiated Reason For Visit: ATRIAL FIBRILLATION Diagnosis Discharge Diagnosis (1) Atrial fibrillation: Status: Acute Code(s): I48.91 - Unspecified atrial fibrillation Qualifiers: Atrial fibrillation type: longstanding persistent Qualified Code(s): I48.11 - Longstanding persistent atrial fibrillation (2) Fall: Status: Acute Code(s): W19.XXXA - Unspecified fall, initial encounter Qualifiers: Encounter type: initial encounter Qualified Code(s): W19.XXXA - Unspecified fall, initial encounter Medications at Discharge Home Medications Prevalite 4 g PO DAILY PRN PRN 09/29/21 acetaminophen 325 mg PO QHS 09/29/21 acetaminophen 650 mg PO Q4H PRN 09/29/21 bisacodyl 10 mg OR DAILY PRN 09/29/21 carbidopa-levodopa 1 tab PO 4X/DAY 09/29/21 cholecalciferol (vitamin D3) 1,250 mcg PO THSA 09/29/21 cyanocobalamin (vitamin B-12) 1,000 mcg PO DAILY 09/29/21 gabapentin 600 mg PO BID 09/29/21 gabapentin 800 mg PO QHS 09/29/21 guaifenesin [Ewelina-Tussin] 200 mg PO Q4H PRN 09/29/21 magnesium hydroxide [Milk of Magnesia] 30 ml PO DAILY PRN 09/29/21 meclizine 12.5 mg PO TID PRN 09/29/21 melatonin 5 mg PO QHS 09/29/21 mineral oil 118 ml OR DAILY PRN 09/29/21 nystatin 1 unit PO TID 09/29/21 omeprazole 20 mg PO DAILY 09/29/21 ondansetron HCl 4 mg PO Q6H PRN 09/29/21 potassium chloride 40 meq PO BID 09/29/21 ropinirole 2 mg PO DAILY 09/29/21 simethicone 125 mg PO BID 09/29/21 sumatriptan succinate 100 mg PO Q2H PRN 09/29/21 trazodone 50 mg PO QHS 09/29/21 amiodarone 200 mg PO BID #0 tab 10/04/21 Hospital Course Operations None Procedures 2-D Echocardiogram Summary of Care Provided Minutes Spent on Discharge: 42 Hospital Course: HPI:ROBB CHAVEZ, is a 76 F who presents with a chief complaint of headache. She had a mechanical fall several days ago after feeling dizzy and her legs going wobbly. She hit her head on the floor. Denies visual complaints or a loss of consciousness and she did have significant bruising. The patient states that she falls routinely 1-3 times per day. She does use a walker at home. She has no recent issues of chest pain, very rarely has chest palpitations. She only has shortness of breath when she has significant anxiety in reference to her passing away. She denies fevers chills. Patient does not have any previous history of heart problems and she does not have a diagnosis of atrial fibrillation that she knows of. She takes fluid pills and she does not notice any significant change in her lower extremity edema, but states she does have it. She was found to Afib in ED, and troponin elevation to 260 in absence of chest pain. U Toxicology negative. Lytes reasonably normal. Does not smoke or use ETOH. Hospital Course: #Afib remains in afib and heart now normal 2D echo showed EF of 65% cardiology consulted; patient given digoxin per cardiology rec's Discontinued metoprolol and transition to amiodarone per cardiology, not a candidate for anticoagulation due to prohibitive fall risk. Will therefore dc lovenox. 10/04/2021: Doing well, she tolerated the amiodarone blood pressures been stable heart rate has been stable therefore will plan for discharge today on twice daily dosing of her amiodarone and have her follow-up with cardiology as an outpatient. We also discontinued her Lasix as there is a concern for possible orthostasis from dehydration and also she has no indication for Lasix as her pulmonary artery pressures are okay and her EF is normal. I did discuss the plan with the daughter and both she and her mother expressed understanding the risk benefits of being discharged back to SNF. #Elevated TSH TSH elevated at 5.26, and free T4 is 1.54. will repeat labs once active illness is over to confirm that they are still elevated. If they are, will refer to endocrinology. #nonstemi troponin was 260 on admission, and trended downwards to 234. on lovenox therapuetic dose. will dc to to high risk of falls. 2D echo as above. She hasnt had any chest pain cardiology on board: it was likely due to afib and rapid heart rate. #Parkinsons's disease/dementia: on carbidopa/levodopa. Was recently started on Nuplazid, patient was read to be getting more confused according to her daughter. Side effects of Nuplazid is confusion as well as arrhythmias, therefore this was discontinued Patient's daughter counseled that we will discontinue it and she is to follow-up with her neurologist for this to be resumed or otherwise. We will also hold her gabapentin on discharge, and if she has no indication for needs and hopefully this can be discontinued on the outpatient basis #Mechanical falls: PT/OT on board. Fall precaution Physical Exam Const alert, oriented x3 and no apparent distress Constitutional Narrative: Ecchymosis over her right eye General Appearance: cooperative HEENT normocephalic and moist oral mucous membranes Eyes PERRL, EOMs intact bilaterally and conjunctivae normal Neck supple and no JVD Resp normal respiratory effort, no retractions, no use of accessory muscles and clear to auscultation bilaterally Auscultation: Negative for crackles, rales, rhonchi or wheezes Cardio regular rate, S1 normal heart sound, S2 normal heart sound and no murmurs Rhythm: abnormal rhythm irregularly irregular GI soft to palpation, non-tender and non-distended; Negative for hepatosplenomegaly Extremity no clubbing, cyanosis or edema Skin no rashes or lesions noted Neuro no focal motor deficits and no sensory deficits noted Psych affect normal Appearance: appropriate Weight / BMI Weight Weight: 166 lb 3.657 oz Body Mass Index (BMI) 28.5 ABG / Lab / Microbiology Data Result Diagrams: 10/04/21 05:31 10/04/21 05:31 Laboratory: Laboratory Results - last 24 hr 10/04/21 05:31: WBC 7.1, RBC 4.44, Hgb 12.6, Hct 38.9, MCV 87.6, MCH 28.4, MCHC 32.4, RDW Std Deviation 42.3, RDW Coeff of Bob 13.3, Plt Count 190, MPV 9.9, Immature Gran % (Auto) 0.400, Neut % (Auto) 73.6 H, Lymph % (Auto) 18.2 L, [place] % (Auto) 6.1, Eos % (Auto) 1.4, Baso % (Auto) 0.3, Absolute Neuts (auto) 5.2, Absolute Lymphs (auto) 1.29, Nucleated RBC % 0 10/04/21 05:31: Sodium 141, Potassium 3.4 L, Chloride 109 H, Carbon Dioxide 25.0, Anion Gap 7, BUN 17, Creatinine 0.66, Estim Creat Clear Calc 40.68, Est GFR (MDRD) Af Amer 112, Est GFR (MDRD) Non-Af 93, BUN/Creatinine Ratio 25.8 H, Glucose 84, Calcium 8.4 L Microbiology: Microbiology 10/03/21 10:55 Nasal Secretion SARS-CoV-2 Antigen (Rapid) - Final Radiography Diagnostic Testing: Radiology Impression Echocardiogram 09/29/21 23:11 Interpretation Summary Image quality is good with] 7 out of 10]. Patient is in atrial fibrillation with variable ventricular rate during the study Left ventricular systolic function is preserved, visually estimated at 65%. No regional wall motion abnormalities appreciated. Left ventricular wall thickness is at the upper limits of normal. No gross evidence of diastolic dysfunction. Left atrium is dilated, 4.3 cm in transverse diameter. Estimated left atrial volume index as noted appears to be an underestimate. Right atrium and right ventricle are of normal size, right ventricular systolic function appears normal. The aortic valve is tricuspid, there is aortic sclerosis, there is no aortic stenosis, there is mild aortic regurgitation. Pressure half-time of the aortic regurgitation jet is 539 ms. Aortic root size is normal The mitral valve is structurally normal, there is mild mitral annular calcification, there is trivial to mild mitral regurgitation The tricuspid valve is structurally normal, there is mild (1+] tricuspid regurgitation Estimated RV systolic pressure is 22 mmHg which is normal Contrast imaging was used for the study No pericardial effusion No prior echo report is available for comparison. Ordering Physician: Favian Wood Referring Physician: Marty Rodrigues Performed By: Anabel Rene RDCS, RVT Meaningful Use Info Meaningful Use Diagnoses (Choose all that apply): None applicable Discharge Plan Admission Admit Date/Time: 09/29/21 23:26 Attending Provider: Keny Muller Primary Care Provider: Marty Rodrigues Consulting Providers: Eugenia Hart Discharge Orders/Prescriptions Prescriptions: New amiodarone 200 mg Tablet 200 mg PO BID Qty: 0 RF: 0 Continued trazodone 50 mg Tablet 50 mg PO QHS RF: 0 carbidopa-levodopa 25-250 mg Tablet 1 tab PO 4X/DAY RF: 0 sumatriptan succinate 100 mg Tablet 100 mg PO Q2H PRN (Reason: Migraine Headache) RF: 0 ondansetron HCl 4 mg Tablet 4 mg PO Q6H PRN (Reason: Nausea) RF: 0 simethicone 125 mg Capsule 125 mg PO BID RF: 0 meclizine 12.5 mg Tablet 12.5 mg PO TID PRN (Reason: Vertigo) RF: 0 acetaminophen 650 mg Tablet 650 mg PO Q4H PRN (Reason: PAIN/FEVER) RF: 0 guaifenesin [Ewelina-Tussin] 100 mg/5 mL Liquid 200 mg PO Q4H PRN (Reason: Cough) RF: 0 mineral oil Enema 118 ml OR DAILY PRN (Reason: Constipation) RF: 0 magnesium hydroxide [Milk of Magnesia] 400 mg/5 mL Suspension 30 ml PO DAILY PRN (Reason: Constipation) RF: 0 potassium chloride 40 mEq/15 mL Liquid 40 meq PO BID RF: 0 bisacodyl 10 mg Suppository 10 mg OR DAILY PRN (Reason: Constipation) RF: 0 ropinirole 2 mg Tablet 2 mg PO DAILY RF: 0 nystatin 500 million unit Powder 1 unit PO TID RF: 0 acetaminophen 325 mg Capsule 325 mg PO QHS RF: 0 cholecalciferol (vitamin D3) 1,250 mcg (50,000 unit) Capsule 1,250 mcg PO THSA RF: 0 Prevalite 4 gram Powder 4 g PO DAILY PRN PRN (Reason: Diarrhea) RF: 0 omeprazole 20 mg Tablet,Delayed Release (Dr/Ec) 20 mg PO DAILY RF: 0 melatonin 5 mg Tablet 5 mg PO QHS RF: 0 cyanocobalamin (vitamin B-12) 1,000 mcg Capsule 1,000 mcg PO DAILY RF: 0 Held gabapentin 600 mg Tablet 600 mg PO BID RF: 0 Hold Instructions: Resume on 10/12/21. gabapentin 800 mg Tablet 800 mg PO QHS RF: 0 Hold Instructions: Resume on 10/12/21. Discontinued furosemide 40 mg Tablet 40 mg PO BID RF: 0 Nuplazid 34 mg Capsule 34 mg PO DAILY RF: 0 Referrals / Follow Up: Marty Rodrigues MD [Primary Care Provider] - Within 1 Week Disposition Disposition (needs filled in before D/C Order can be placed): [facility] Facility Charges/Coding Visit Charges Inpatient E&M: 28578 Disch Hosp
== END 2021-10-04 17:09 | DRG 281 ==
LOC: ED 17:23 → PCU 09-30 03:49
PROVIDERS: Nurse Practitioner Family; Student in an Organized Health Care Education/Training Program; Admitting Provider Hospitalist; Emergency Provider Student in an Organized Health Care Education/Training Program; PCP Family Medicine; Visit Provider Family Medicine
DX: I48.11 Longstanding persistent atrial fibrillation (principal); I21.A1 Myocardial infarction type 2; S02.40FA Zygomatic fracture, left side, initial encounter for closed fracture; S02.85XA Fracture of orbit, unspecified, initial encounter for closed fracture; W18.30XA Fall on same level, unspecified, initial encounter; Z91.81 History of falling; Y93.9 Activity, unspecified; Y92.009 Unspecified place in unspecified non-institutional (private) residence as the place of occurrence of the external cause; E87.6 Hypokalemia; I95.1 Orthostatic hypotension; E86.0 Dehydration; G20 Parkinson's disease; R79.89 Other specified abnormal findings of blood chemistry; F02.80 Dementia in other diseases classified elsewhere, unspecified severity, without behavioral disturbance, psychotic disturbance, mood disturbance, and anxiety; F41.9 Anxiety disorder, unspecified; F32.A Depression, unspecified; K21.9 Gastro-esophageal reflux disease without esophagitis; M41.9 Scoliosis, unspecified; G47.00 Insomnia, unspecified; Z66 Do not resuscitate; Z79.899 Other long term (current) drug therapy
CPT/HCPCS: 36415; 70450; 70486; 71045; 80048; 80053; 80307; 81001; 82077; 83735; 84439; 84443; 84484; 85025; 85610; 87426; 93005; 93306; 97110; 97162; 97166; 97530; 97535; 99283; J7030; Q9957; A4216; C8929; J2405

== ENCOUNTER 2021-10-15 07:31 | Emergency (ER) | payer MEDICARE, MEDICAID, SELFPAY ==
[2021-10-15 07:32] VITALS: BP 162/79; PULSE 63; RESP 14; TEMP 36.6; O2SAT 98; BMI 28.3
--- NOTE | 2021-10-15 08:16 | CT_ITS ---
EXAM: CT CERVICAL SPINE WITHOUT INTRAVENOUS CONTRAST CLINICAL INDICATION: MECHANICAL FALL AT ECF, NO LOC, HIT HEAD, SWELLING AND BRUISING, DEMENTIA, PARKINSONS, A-FIB, HTN TECHNIQUE: Helically acquired images were obtained of the cervical spine without intravenous contrast. 2D reformatted images were reviewed. This CT exam was performed using one or more of the following dose reduction techniques: automated exposure control, adjustment of the mA and/or kV according to patient size, and/or use of iterative reconstruction technique. This report was created using [employer] report [employer] technology. COMPARISON: None. FINDINGS: VERTEBRAE: Straightening of the normal cervical curvature. No fracture. No traumatic subluxation. No discrete lytic or blastic abnormality. Normal craniocervical junction and cervicothoracic junction. DISCS/SPINAL CANAL/NEURAL FORAMINA: Disc space narrowing at C3-C4, C4-C5, C5-C6 and C7-T1. Bony ankylosis of C6-C7, either congenital or related to prior surgery. Posterior disc osteophyte complexes including C3-C4, C4-C5 and C5-C6. Bilateral foraminal stenosis at C4-C5 and C5-C6 as well as right T3-T4. Mild bilateral foraminal narrowing at C7-T1. No critical canal stenosis. SOFT TISSUES: Unremarkable. No prevertebral soft tissue swelling. VASCULATURE: Atherosclerosis of the aortic arch. LYMPH NODES: Unremarkable. No cervical adenopathy. LUNG APICES: Unremarkable as visualized. Clear. OTHER FINDINGS: Multilevel facet arthropathy involving the left more than right cervical levels. CT/Spine Cervical without Contras IMPRESSION: No acute findings in the cervical spine. Electronically Signed: Dk Chen MD (Brooks) at 9:13 EST , Service support ,
--- NOTE | 2021-10-15 08:16 | CT_ITS ---
STUDY: CT BRAIN WITHOUT CONTRAST REASON FOR EXAM: Female, 76 years old. MECHANICAL FALL AT ECF, NO LOC, HIT HEAD, SWELLING AND BRUISING, DEMENTIA, PARKINSONS, A-FIB, HTN RADIATION DOSAGE (If Supplied By Facility): CTDIvol = ( 44.99 ) mGy, DLP = ( 779.24 ) mGycm TECHNIQUE: Transaxial CT imaging of the brain was performed without administration of intravenous contrast material. Individualized dose optimization techniques were used for this CT. COMPARISON: 09/29/2021 FINDINGS: Soft tissue swelling of the left frontal scalp. There is hyperostosis frontalis internus. There is mild cerebral atrophy with widening of the extra-axial spaces and ventricular dilatation. There are areas of decreased attenuation within the white matter tracts of the supratentorial brain, consistent with microvascular disease changes. Normal basal ganglia and thalami. Normal brainstem. Normal cerebellum. There is no intracranial hemorrhage. There are no findings of an acute ischemic infarction. Normal visualized paranasal sinuses. CT/Brain/Head without Contrast IMPRESSION: 1. No acute intracranial hemorrhage or mass effect. 2. Left frontal scalp soft tissue swelling. Electronically Signed: Dk Chen MD (Brooks) at 8:47 EST , Service support ,
--- NOTE | 2021-10-15 08:16 | ED.VIS.FALL ---
HPI HPI - Fall History of Present Illness Chief Complaint: Fall Narrative Narrative: Patient with reported fall this morning with head injury. Apparently she was trying to ambulate to the bathroom and fell hitting her head. She denies LOC. She is not on anticoagulation. She denies pain elsewhere besides the left frontal area of her head. She denies visual complaints. Patient states that she was seen here about 2 weeks ago for a fall where she injured her facial bones and had a skull fracture as well as orbital floor fracture. Talking to the trauma center they did not feel she need to be transferred as some of the findings were age-indeterminate. Patient was in A. fib and he had to be admitted to [facility] and subsequently discharged home with rate control. The daughter states that she thought she was on a blood thinner when she was in the hospital but she is not on any medications now for anticoagulation. [facility] Medical History Atrial fibrillation Dementia Depression Fall GERD (gastroesophageal reflux disease) Parkinson's disease Home Medications Prevalite 4 g PO DAILY PRN PRN 09/29/21 [History Last Taken Unknown] acetaminophen 325 mg PO QHS 09/29/21 [History Last Taken Unknown] acetaminophen 650 mg PO Q4H PRN 09/29/21 [History Last Taken Unknown] bisacodyl 10 mg [place] DAILY PRN 09/29/21 [History Last Taken Unknown] carbidopa-levodopa 1 tab PO 4X/DAY 09/29/21 [History Last Taken Unknown] cholecalciferol (vitamin D3) 1,250 mcg PO THSA 09/29/21 [History Last Taken Unknown] cyanocobalamin (vitamin B-12) 1,000 mcg PO DAILY 09/29/21 [History Last Taken Unknown] gabapentin 600 mg PO BID 09/29/21 [History Last Taken Unknown] gabapentin 800 mg PO QHS 09/29/21 [History Last Taken Unknown] guaifenesin [Ewelina-Tussin] 200 mg PO Q4H PRN 09/29/21 [History Last Taken Unknown] magnesium hydroxide [Milk of Magnesia] 30 ml PO DAILY PRN 09/29/21 [History Last Taken Unknown] meclizine 12.5 mg PO TID PRN 09/29/21 [History Last Taken Unknown] melatonin 5 mg PO QHS 09/29/21 [History Last Taken Unknown] mineral oil 118 ml [place] DAILY PRN 09/29/21 [History Last Taken Unknown] nystatin 1 unit PO TID 09/29/21 [History Last Taken Unknown] omeprazole 20 mg PO DAILY 09/29/21 [History Last Taken Unknown] ondansetron HCl 4 mg PO Q6H PRN 09/29/21 [History Last Taken Unknown] potassium chloride 40 meq PO BID 09/29/21 [History Last Taken Unknown] ropinirole 2 mg PO DAILY 09/29/21 [History Last Taken Unknown] simethicone 125 mg PO BID 09/29/21 [History Last Taken Unknown] sumatriptan succinate 100 mg PO Q2H PRN 09/29/21 [History Last Taken Unknown] trazodone 50 mg PO QHS 09/29/21 [History Last Taken Unknown] amiodarone 200 mg PO BID #0 tab 10/04/21 [Rx Last Taken Unknown] Allergy/AdvReac Type Severity Reaction Status Date / Time iodine Allergy PT UNSURE Verified 10/15/21 07:31 OF REACTION Sulfa (Sulfonamide Allergy PT UNSURE Verified 10/15/21 07:31 Antibiotics) OF REACTION Social History Smoking Status: Never smoker ROS ROS ED Constitutional Constitutional ED: Denies chills or fever(s) Eyes Eyes: Denies blurry vision or diplopia ENT ENT ED: Denies rhinorrhea or sore throat Cardiovascular Cardiovascular: Denies chest pain or palpitations Respiratory/Chest Respiratory/Chest: Denies cough or dyspnea Gastrointestinal Gastrointestinal: Denies abdominal pain, nausea or vomiting Genitourinary Genitourinary ED: Denies dysuria or hematuria Musculoskeletal Musculoskeletal: Denies arthralgias, back pain or myalgias Integumentary Denies rash Neurologic Neurologic: Reports headache(s); Denies paresthesias or weakness EXAM Physical Exam Const Vital Signs: 10/15/21 07:32 10/15/21 07:34 10/15/21 09:26 Temperature 98 F Temperature Source Temporal Pulse Rate 63 60 Respiratory Rate 14 Respiratory Effort Normal Non-Labored Blood Pressure 162/79 H 140/66 H Blood Pressure Mean 106 Pulse Ox 98 99 Oxygen Delivery Method Room Air Positive well nourished General Appearance ED: NAD HEENT Reports normocephalic HEENT Narrative: Bruising to the left frontal region of the forehead Eyes PERRL and EOMs intact bilaterally Neck full ROM Neck Narrative: No midline spinal deformity or step-off Resp normal respiratory effort and clear to auscultation bilaterally Cardio regular rate and regular rhythm Extremity normal to inspection, full ROM and normal capillary refill Neuro oriented x3, CN's II-XII intact bilaterally and moves all extremities Sensorium / Orientation: alert Psych mental status grossly normal and thought process normal MDM MDM MDM Narrative Medical decision making narrative: Patient presenting for concern for a fall and head injury. I obtained a CT of the brain and cervical spine which are negative. She has a small hematoma on the left frontal forehead. Patient is apparently at baseline per family. I feel she is safe to be discharged back to her facility. Impression: 1. Fall 2. Cephalhematoma Radiography Diagnostic Testing: Clinical Impression(s) from Imaging Studies Brain CT 10/15/21 08:16 IMPRESSION: 1. No acute intracranial hemorrhage or mass effect. 2. Left frontal scalp soft tissue swelling. Electronically Signed: Dk Chen MD (Brooks) at 8:47 EST , Service support , Cervical Spine CT 10/15/21 08:16 IMPRESSION: No acute findings in the cervical spine. Electronically Signed: Dk Chen MD (Brooks) at 9:13 EST , Service support , Discharge Plan Triage Chief Complaint: Fall ED Provider: Isauro Stroud Dx/Rx/DC Orders Instructions: ED Hematoma, ED Fall Prevention Prescriptions: No Action gabapentin 600 mg Tablet 600 mg PO BID RF: 0 Hold Instructions: Resume on 10/12/21. trazodone 50 mg Tablet 50 mg PO QHS RF: 0 carbidopa-levodopa 25-250 mg Tablet 1 tab PO 4X/DAY RF: 0 sumatriptan succinate 100 mg Tablet 100 mg PO Q2H PRN (Reason: Migraine Headache) RF: 0 ondansetron HCl 4 mg Tablet 4 mg PO Q6H PRN (Reason: Nausea) RF: 0 simethicone 125 mg Capsule 125 mg PO BID RF: 0 meclizine 12.5 mg Tablet 12.5 mg PO TID PRN (Reason: Vertigo) RF: 0 acetaminophen 650 mg Tablet 650 mg PO Q4H PRN (Reason: PAIN/FEVER) RF: 0 guaifenesin [Ewelina-Tussin] 100 mg/5 mL Liquid 200 mg PO Q4H PRN (Reason: Cough) RF: 0 mineral oil Enema 118 ml [place] DAILY PRN (Reason: Constipation) RF: 0 magnesium hydroxide [Milk of Magnesia] 400 mg/5 mL Suspension 30 ml PO DAILY PRN (Reason: Constipation) RF: 0 gabapentin 800 mg Tablet 800 mg PO QHS RF: 0 Hold Instructions: Resume on 10/12/21. potassium chloride 40 mEq/15 mL Liquid 40 meq PO BID RF: 0 bisacodyl 10 mg Suppository 10 mg [place] DAILY PRN (Reason: Constipation) RF: 0 ropinirole 2 mg Tablet 2 mg PO DAILY RF: 0 nystatin 500 million unit Powder 1 unit PO TID RF: 0 acetaminophen 325 mg Capsule 325 mg PO QHS RF: 0 cholecalciferol (vitamin D3) 1,250 mcg (50,000 unit) Capsule 1,250 mcg PO THSA RF: 0 Prevalite 4 gram Powder 4 g PO DAILY PRN PRN (Reason: Diarrhea) RF: 0 omeprazole 20 mg Tablet,Delayed Release (Dr/Ec) 20 mg PO DAILY RF: 0 melatonin 5 mg Tablet 5 mg PO QHS RF: 0 cyanocobalamin (vitamin B-12) 1,000 mcg Capsule 1,000 mcg PO DAILY RF: 0 amiodarone 200 mg Tablet 200 mg PO BID Qty: 0 RF: 0 Primary Care Provider: Marty Rodrigues Referrals: Marty Rodrigues MD [Primary Care Provider] - Disposition Disposition: Home, Self Care Discharge Date/Time: 10/15/21 09:26
[2021-10-15 09:26] VITALS: BP 140/66; PULSE 60; O2SAT 99
== END 2021-10-15 09:26 | disposition home or self-care (01) ==
PROVIDERS: Emergency Provider Student in an Organized Health Care Education/Training Program; PCP Family Medicine; Visit Provider Student in an Organized Health Care Education/Training Program
DX: S06.2X9A Diffuse traumatic brain injury with loss of consciousness of unspecified duration, initial encounter (principal); W19.XXXA Unspecified fall, initial encounter
CPT/HCPCS: 70450; 72125; 99284

== ENCOUNTER 2021-12-18 05:28 | Emergency (ER) | payer MEDICARE, MEDICAID, SELFPAY ==
[2021-12-18 05:30] VITALS: BP 129/83; PULSE 77; RESP 16; TEMP 35.9; O2SAT 99; BMI 30.4
--- NOTE | 2021-12-18 05:51 | CT_ITS ---
STUDY: CT CERVICAL SPINE WITHOUT CONTRAST REASON FOR EXAM: Female, 76 years old. HEAD TRAUMA RADIATION DOSAGE (If Supplied By Facility): CTDIvol = ( 15.57 ) mGy, DLP = ( 345.01 ) mGycm TECHNIQUE: High resolution transaxial imaging was performed without contrast material. Sagittal and coronal images were reconstructed. Individualized dose optimization techniques were used for this CT. COMPARISON: CT cervical spine from 10/15/2021. FINDINGS: Normal craniovertebral junction. There are degenerative changes of the anterior atlantoaxial articulation. Normal odontoid process. There is straightening of the normal cervical lordosis. There is diffuse degenerative facet arthrosis and endplate changes. There is fusion of the C6-C7 vertebral bodies. Degenerative disc changes most prominent at C3-C4 to C5-C6 with bilateral neural foraminal narrowing. Normal visualized soft tissue structures. CT/Spine Cervical without Contras IMPRESSION: Multilevel degenerative changes, as described above. No acute fracture or subluxation. Electronically Signed: Yovany Pepper MD at 7:37 EDT ,
--- NOTE | 2021-12-18 05:51 | CT_ITS ---
STUDY: CT BRAIN WITHOUT CONTRAST REASON FOR EXAM: Female, 76 years old. HEAD TRAUMA RADIATION DOSAGE (If Supplied By Facility): CTDIvol = ( 44.99 ) mGy, DLP = ( 779.24 ) mGycm TECHNIQUE: Transaxial CT imaging of the brain was performed without administration of intravenous contrast material. Individualized dose optimization techniques were used for this CT. COMPARISON: CT head from 10/15/2021. FINDINGS: There is a small left posterior scalp contusion. Normal calvarium. There is mild cerebral atrophy with widening of the extra-axial spaces and ventricular dilatation. There are areas of decreased attenuation within the white matter tracts of the supratentorial brain, consistent with microvascular disease changes. Normal basal ganglia and thalami. Normal brainstem. Normal cerebellum. There is no intracranial hemorrhage. There are no findings of an acute ischemic infarction. Normal visualized paranasal sinuses. CT/Brain/Head without Contrast IMPRESSION: Chronic involutional changes of the brain. Left posterior scalp contusion. Electronically Signed: Yovany Pepper MD at 7:29 EDT ,
--- NOTE | 2021-12-18 05:53 | EDS_ITS ---
HPI HPI - Fall History of Present Illness Chief Complaint: Fall Detail of Chief Complaint: Fall at half-way with scalp laceration. Informant: patient, EMS and SNF Occured/Mechanism Occurred: Today and Hours Mechanism/Context: Yes same level fall Usually ambulates: Walker Pain/Injury Pain Location: head Quality of Pain: Dull Current Severity: Mild Maximum Severity: Mild Associated Symptoms Associated Symptoms: Negative for Parasthesias, Weakness, Loss of function, Inability to ambulate, Loss of consciousness and Amnesia Narrative Narrative: 76-year-old female history of dementia, A. fib and Parkinson's. Denies being on any blood thinners. States she lives in a half-way. Reportedly got up was using a walker tripped and fell causing a laceration to her scalp. She was sent in by the half-way. She denies any pain to her arms or legs or back. No recent illness. Tetanus Immunization: Unknown Prior similar symptoms: Yes Recent Illness/Hospitalization: No PFSH PFSH Medical History Atrial fibrillation Dementia Depression Dyspnea on exertion Fall GERD (gastroesophageal reflux disease) Parkinson's disease Home Medications Prevalite 4 g PO DAILY PRN PRN 09/29/21 [History Last Taken Unknown] acetaminophen 325 mg PO QHS 09/29/21 [History Last Taken Unknown] acetaminophen 650 mg PO Q4H PRN 09/29/21 [History Last Taken Unknown] bisacodyl 10 mg PA DAILY PRN 09/29/21 [History Last Taken Unknown] carbidopa-levodopa 1 tab PO 4X/DAY 09/29/21 [History Last Taken Unknown] cholecalciferol (vitamin D3) 2,000 mcg PO 09/29/21 [History Last Taken Unknown] cyanocobalamin (vitamin B-12) 1,000 mcg PO DAILY 09/29/21 [History Last Taken Unknown] gabapentin 600 mg PO BID 09/29/21 [History Last Taken Unknown] gabapentin 800 mg PO QHS 09/29/21 [History Last Taken Unknown] guaifenesin [Ewelina-Tussin] 200 mg PO Q4H PRN 09/29/21 [History Last Taken Unknown] magnesium hydroxide [Milk of Magnesia] 30 ml PO DAILY PRN 09/29/21 [History Last Taken Unknown] meclizine 12.5 mg PO TID PRN 09/29/21 [History Last Taken Unknown] melatonin 5 mg PO QHS 09/29/21 [History Last Taken Unknown] mineral oil 118 ml PA DAILY PRN 09/29/21 [History Last Taken Unknown] omeprazole 20 mg PO DAILY 09/29/21 [History Last Taken Unknown] ondansetron HCl 4 mg PO Q6H PRN 09/29/21 [History Last Taken Unknown] potassium chloride 40 meq PO BID 09/29/21 [History Last Taken Unknown] simethicone 125 mg PO BID 09/29/21 [History Last Taken Unknown] sumatriptan succinate 100 mg PO Q2H PRN 09/29/21 [History Last Taken Unknown] trazodone 50 mg PO QHS 09/29/21 [History Last Taken Unknown] amiodarone 200 mg tablet 200 mg PO DAILY #90 tab 11/09/21 [Rx Last Taken Unknown ] rivastigmine 4.6 mg/24 hour transdermal patch 1 patch TOPICAL DAILY ea 11/09/21 [History Last Taken Unknown] ropinirole 1 mg tablet 1 mg PO TID tab 11/09/21 [History Last Taken Unknown] Allergy/AdvReac Type Severity Reaction Status Date / Time iodine Allergy PT UNSURE Verified 12/18/21 06:09 OF REACTION Sulfa (Sulfonamide Allergy PT UNSURE Verified 11/09/21 15:54 Antibiotics) OF REACTION Surgical History History of bilateral knee replacement History of cholecystectomy History of hysterectomy History of intestinal surgery History of open reduction and internal fixation (ORIF) procedure History of rotator cuff surgery History of spinal surgery Social History Smoking Status: Never smoker alcohol intake: never substance use type: does not use caffeine: Yes ROS ROS ED ROS Narrative Denies. Review of Systems ROS Unobtainable: due to mental status Constitutional Constitutional ED: Denies fever(s) Eyes Eyes: Denies change in vision ENT ENT ED: Denies ear pain Cardiovascular Cardiovascular: Denies chest pain Respiratory/Chest Respiratory/Chest: Denies dyspnea Gastrointestinal Gastrointestinal: Denies abdominal pain, diarrhea, nausea or vomiting Genitourinary Genitourinary ED: Denies dysuria Musculoskeletal Musculoskeletal: Denies myalgias Integumentary Denies rash Neurologic Neurologic: Denies headache(s) Psychiatric Psychiatric: Denies depression Endocrine Endocrinology: Denies polyuria Hematologic/Lymphatic Hematologic/Lymphatic: Denies easy bruising Allergic/Immunologic Allergic/Immunologic ED: Denies urticaria EXAM Physical Exam Narrative Exam Narrative: Only female from a half-way. Vital signs stable afebrile. H EENT exam dried blood on her face. Pupils round reactive light. She is awake alert and talking. She is a head dressing on and dried blood on her hair and scalp. There is no facial trauma. Trachea midline. She does state that she has neck pain. The accuracy of her history is difficult due to her dementia. Lungs are clear. Heart rate of 77. No murmur. Chest were nontender. Ribs nontender. Abdomen soft nontender. Cuff girdle intact. Moving both upper and lower extremities. Normal basket grader strength. Normal dorsi plantar flexion. She can flex and extend both hips and knees. No bony deformities or tenderness. No bruising. Back nontender. Neurologically she is awake. She is alert. She answers questions and follows commands. The answers to her questions are limited due to her dementia. Const Vital Signs: 12/18/21 05:30 12/18/21 05:48 Temperature 96.6 F L Temperature Source Temporal Pulse Rate 77 Respiratory Rate 16 Respiratory Effort Normal Non-Labored Respiratory Depth Normal Respiratory Pattern Normal Blood Pressure 129/83 H Blood Pressure Mean 98 Pulse Ox 99 Oxygen Delivery Method Room Air Room Air Positive well nourished and well developed; Negative for obese, cachectic, contractures or unkempt General Appearance ED: well developed and NAD; Negative for unkempt, cachectic or contractures Nutritional Appearance: Negative for cachectic or obese HEENT Reports normocephalic HEENT Narrative: Head dressing on. Dried blood on the scalp and hair. This will need to be cleaned to determine where the laceration is and to repair it. trauma; Negative for atraumatic Eyes PERRL and EOMs intact bilaterally Neck full ROM, no lymphadenopathy and supple General: tenderness Chest Wall inspection of chest normal and palpation of chest normal Resp normal respiratory effort, no retractions and clear to auscultation bilaterally Auscultation: Negative for rales, rhonchi or wheezes Cardio regular rate, regular rhythm, S1 normal heart sound, S2 normal heart sound and no murmurs GI non-tender, non-distended and no masses Auscultation: normoactive bowel sounds Palpation: soft; Negative for guarding or rebound tenderness present Back/Spine no CVA tenderness General Back: Negative for CVA tenderness Cervical Spine: cervical spine tenderness Thoracic Spine / Upper Back: Negative for thoracic spinal tenderness Lumbar Spine / Lower Back: Negative for lumbar spinal tenderness Extremity normal to inspection and full ROM Neuro moves all extremities and no focal motor deficits Sensorium / Orientation: alert, oriented to person and confused; Negative for oriented to place, oriented to time, lethargic or stuporous Motor Exam: strength 5/5 throughout Psych mental status grossly normal and thought process normal Appearance: Negative for unkempt Mood & Affect: Negative for depressed or tearful Skin Skin Narrative: Scalp laceration. Lesions: no lesions and No lesion noted Rashes: no rashes and No rashes noted Trauma: laceration; Negative for abrasion MDM MDM MDM Narrative Medical decision making narrative: 76-year-old half-way fell has a scalp laceration need to be repaired. She will undergo a CAT scan of her head neck. Unknown tetanus status and to be updated. We asked the half-way and they did not know when her last tetanus was. Patient is unsure also. Radiography Diagnostic Testing: CAT scan of the brain showed no acute intracranial bleed. This was read by myself we will not discharge the patient until the official radiology interpretation. CAT scan of the C-spine showed chronic changes but no acute fracture. Again this is my initial evaluation but awaiting official radiology interpretation of these CAT scans. He will be turned over to the morning physician. Procedures Lacerations Left lateral scalp laceration: Length: 1.38 in Depth: Sub Q Shape: Linear Prep: Ruchi-Adriana Laceration repair: Irrigated, Lidocaine, Local, Skin sutures and Wound e xplored Number of Sutures/[place]: 4 Comment: Nurses cleaned of the the blood of the patient's scalp we found a laceration of the left lateral scalp about 3.5 cm. Involve the skin and subcu tissue. Locally anesthetized with lidocaine. Cleaned with Noel. Washed and irrigated with saline. Explored. There was no bony step-off. I closed the wound using 4 simple interrupted 4-0 Ethilon sutures. Proper hemostasis and wound closure is obtained. Patient tolerated procedure well. Discharge Plan Triage Chief Complaint: Fall ED Provider: Bucky Oakley Dx/Rx/DC Orders Clinical Impression: Fall, Dementia, Atrial fibrillation, Laceration of scalp, Head injury Instructions: ED Head Injury (Adult), ED Laceration Scalp Stitches or Ralf Prescriptions: No Action rivastigmine 4.6 mg/24 hour patch 24 hour 1 patch topical DAILY RF: 0 ropinirole 1 mg tablet 1 mg PO TID RF: 0 amiodarone 200 mg tablet 200 mg PO DAILY Qty: 90 RF: 3 gabapentin 600 mg Tablet 600 mg PO BID RF: 0 Hold Instructions: Resume on 10/12/21. trazodone 50 mg Tablet 50 mg PO QHS RF: 0 carbidopa-levodopa 25-250 mg Tablet 1 tab PO 4X/DAY RF: 0 sumatriptan succinate 100 mg Tablet 100 mg PO Q2H PRN (Reason: Migraine Headache) RF: 0 ondansetron HCl 4 mg Tablet 4 mg PO Q6H PRN (Reason: Nausea) RF: 0 simethicone 125 mg Capsule 125 mg PO BID RF: 0 meclizine 12.5 mg Tablet 12.5 mg PO TID PRN (Reason: Vertigo) RF: 0 acetaminophen 650 mg Tablet 650 mg PO Q4H PRN (Reason: PAIN/FEVER) RF: 0 guaifenesin [Ewelina-Tussin] 100 mg/5 mL Liquid 200 mg PO Q4H PRN (Reason: Cough) RF: 0 mineral oil Enema 118 ml PA DAILY PRN (Reason: Constipation) RF: 0 magnesium hydroxide [Milk of Magnesia] 400 mg/5 mL Suspension 30 ml PO DAILY PRN (Reason: Constipation) RF: 0 gabapentin 800 mg Tablet 800 mg PO QHS RF: 0 Hold Instructions: Resume on 10/12/21. potassium chloride 40 mEq/15 mL Liquid 40 meq PO BID RF: 0 bisacodyl 10 mg Suppository 10 mg PA DAILY PRN (Reason: Constipation) RF: 0 acetaminophen 325 mg Capsule 325 mg PO QHS RF: 0 cholecalciferol (vitamin D3) 1,250 mcg (50,000 unit) Capsule 2,000 mcg PO RF: 0 Prevalite 4 gram Powder 4 g PO DAILY PRN PRN (Reason: Diarrhea) RF: 0 omeprazole 20 mg Tablet,Delayed Release (Dr/Ec) 20 mg PO DAILY RF: 0 melatonin 5 mg Tablet 5 mg PO QHS RF: 0 cyanocobalamin (vitamin B-12) 1,000 mcg Capsule 1,000 mcg PO DAILY RF: 0 Primary Care Provider: Marty Rodrigues Referrals: Marty Rodrigues MD [Primary Care Provider] - 10 Day for suture removal Activity Restrictions/Additional Instructions: Keep the scalp clean. May be washed but should be dried. The scalp laceration is on the left lateral scalp. It is approximately 3.5 cm in length. I placed 4 4-0 Ethilon sutures. There is no need to be removed in 10 days. Tylenol for pain. If intractable vomiting or not acting right needs evaluated. Disposition Disposition: Home, Self Care
[2021-12-18] MEDS: Diphth,Pertuss(Acell),Tet Vac 0.5 ML Vial IM (07:07)
[2021-12-18] MEDS: Lidocaine 1% (20 ml mdv) 20 ML Vial 10 ML INFILT (07:08)
[2021-12-18 08:18] VITALS: PULSE 68; RESP 16; O2SAT 94
== END 2021-12-18 08:18 | disposition home or self-care (01) ==
PROVIDERS: Emergency Provider Emergency Medicine; PCP Family Medicine; Visit Provider Emergency Medicine
DX: S01.01XA Laceration without foreign body of scalp, initial encounter (principal); G20 Parkinson's disease; F03.90 Unspecified dementia, unspecified severity, without behavioral disturbance, psychotic disturbance, mood disturbance, and anxiety; I48.91 Unspecified atrial fibrillation; W01.0XXA Fall on same level from slipping, tripping and stumbling without subsequent striking against object, initial encounter; Y93.9 Activity, unspecified; Y92.129 Unspecified place in nursing home as the place of occurrence of the external cause; K21.9 Gastro-esophageal reflux disease without esophagitis; F32.A Depression, unspecified; Z79.899 Other long term (current) drug therapy; Z79.01 Long term (current) use of anticoagulants; Z23 Encounter for immunization
CPT/HCPCS: 12002; 70450; 72125; 90471; 90715; 99284

== ENCOUNTER → 2022-08-31 | Outpatient (REF) | payer MEDICARE, MEDICAID, SELFPAY ==
[2022-08-31 09:53] LABS: Hematocrit 35.7 % (37-47); Hemoglobin 11.1 g/dL (12.0-15.0); Mean Corp Hgb Conc 31.1 g/dL (32-36); Mean Corpuscular Hgb 28.5 pg (27.0-32.0); Mean Corpuscular Volume 91.5 fL (81-99); Mean Platelet Vol. 9.7 fl (6.2-12.0); Platelet Count 159 K/mm3 (150-450); RBC Distribution Width CV 14.6 % (11.6-14.6); RBC Distribution Width SD 49.2 fl (35.1-43.9); White Blood Count 4.9 K/mm3 (4.4-11.0)
[2022-08-31 10:10] LABS: Anion Gap 8 (5-15); BUN 17 mg/dL (7-18); BUN/Creat Ratio 20.1 RATIO (10-20); Calcium,Total 8.1 mg/dL (8.5-10.1); Chloride 109 mmol/L (98-107); Creatinine, Serum 0.85 mg/dL (0.55-1.02); EST Glomerular Filtration Rate 69 mL/min (>60); Est Glom Filt Rate - Afr Amer 84 mL/min (>60); Glucose 73 mg/dL (74-106); Potassium 3.4 mmol/L (3.5-5.1); Sodium Level 144 mmol/L (136-145)
== END ==
LOC: OLS.WHLCAR 05:00
PROVIDERS: PCP Family Medicine; Visit Provider Internal Medicine
DX: E87.6 Hypokalemia (principal); G20 Parkinson's disease; F02.82 Dementia in other diseases classified elsewhere, unspecified severity, with psychotic disturbance; F06.2 Psychotic disorder with delusions due to known physiological condition; R44.3 Hallucinations, unspecified
CPT/HCPCS: 36415; 80048; 85027

== ENCOUNTER → 2022-09-04 | Outpatient (REF) | payer MEDICARE, MEDICAID, SELFPAY ==
[2022-09-04 08:44] LABS: Potassium 3.6 mmol/L (3.5-5.1)
== END ==
LOC: OLS.WHLCAR 04:00
PROVIDERS: PCP Family Medicine; Referring Provider Internal Medicine; Visit Provider Internal Medicine
DX: E87.6 Hypokalemia (principal); G20 Parkinson's disease; F02.82 Dementia in other diseases classified elsewhere, unspecified severity, with psychotic disturbance; F06.2 Psychotic disorder with delusions due to known physiological condition; R44.3 Hallucinations, unspecified
CPT/HCPCS: 36415; 84132

== ENCOUNTER → 2022-11-29 | Outpatient (REF) | payer MEDICARE, MEDICAID, SELFPAY ==
[2022-11-29 10:33] LABS: Hemoglobin 10.6 g/dL (12.0-15.0); Mean Corp Hgb Conc 32.1 g/dL (32-36); Mean Corpuscular Hgb 28.9 pg (27.0-32.0); Mean Corpuscular Volume 89.9 fL (81-99); Mean Platelet Vol. 9.7 fl (6.2-12.0); Platelet Count 151 K/mm3 (150-450); RBC Distribution Width CV 14.9 % (11.6-14.6); RBC Distribution Width SD 49.5 fl (35.1-43.9); Red Blood Count 3.67 M/mm3 (4.2-5.4); White Blood Count 4.2 K/mm3 (4.4-11.0)
[2022-11-29 11:01] LABS: Anion Gap 8 (5-15); BUN 15 mg/dL (7-18); BUN/Creat Ratio 20.9 RATIO (10-20); Chloride 110 mmol/L (98-107); Creatinine, Serum 0.72 mg/dL (0.55-1.02); EST Glomerular Filtration Rate 83 mL/min (>60); Est Glom Filt Rate - Afr Amer 101 mL/min (>60); Glucose 72 mg/dL (74-106); Potassium 2.8 mmol/L (3.5-5.1); Sodium Level 141 mmol/L (136-145)
== END ==
LOC: OLS.WHLCAR 05:00
PROVIDERS: PCP Family Medicine; Visit Provider Internal Medicine
DX: E87.6 Hypokalemia (principal); G20 Parkinson's disease; F02.82 Dementia in other diseases classified elsewhere, unspecified severity, with psychotic disturbance; F06.2 Psychotic disorder with delusions due to known physiological condition; R44.3 Hallucinations, unspecified
CPT/HCPCS: 36415; 80048; 85027

== ENCOUNTER → 2022-12-21 | Outpatient (REF) | payer MEDICARE, MEDICAID, SELFPAY ==
[2022-12-21 08:45] LABS: Potassium 3.4 mmol/L (3.5-5.1)
== END ==
LOC: OLS.WHLCAR 05:00
PROVIDERS: PCP Family Medicine; Visit Provider Internal Medicine
DX: K50.919 Crohn's disease, unspecified, with unspecified complications (principal); G20 Parkinson's disease; F02.811 Dementia in other diseases classified elsewhere, unspecified severity, with agitation; R44.3 Hallucinations, unspecified; Z79.899 Other long term (current) drug therapy
CPT/HCPCS: 36415; 84132

== ENCOUNTER → 2023-01-31 | Outpatient (REF) | payer MEDICARE, MEDICAID, SELFPAY ==
[2023-01-31 06:28] LABS: Absolute Lymphocyte Count 0.43 X10^3/uL (0.83-4.51); Absolute Neutrophil Count 4.5 X10^3/uL (2.0-7.7); Basophil# 0.02 X10^3/uL; Basophil% 0.4 % (0-1); Eosinophil# 0.08 X10^3/uL; Eosinophils% 1.5 % (0-5); Hematocrit 35.1 % (37-47); Hemoglobin 11.1 g/dL (12.0-15.0); Lymphocyte # 0.43 X10^3/ul (0.83-4.51); Lymphocyte % 7.8 % (19-41); Mean Corp Hgb Conc 31.6 g/dL (32-36); Mean Corpuscular Volume 88.4 fL (81-99); Mean Platelet Vol. 9.5 fl (6.2-12.0); Monocyte# 0.47 X10^3/uL; Monocyte% 8.6 % (0-10); NRBC Flagged by Analyzer 0 % (0-5); Neutrophil # 4.46 X10^3/uL (2.7-7.7); Neutrophil % 81.3 % (47-70); POSITIVE DIFFERENTIAL YES; Platelet Count 145 K/mm3 (150-450); RBC Distribution Width CV 14.4 % (11.6-14.6); RBC Distribution Width SD 46.2 fl (35.1-43.9); Red Blood Count 3.97 M/mm3 (4.2-5.4); White Blood Count 5.5 K/mm3 (4.4-11.0)
[2023-01-31 06:38] LABS: Differential Indicated SCAN CRITERIA MET
[2023-01-31 07:05] LABS: Platelet Estimate SLT DEC (ADEQ)
[2023-01-31 07:39] LABS: Anion Gap 9 (5-15); BUN 18 mg/dL (7-18); BUN/Creat Ratio 24.8 RATIO (10-20); Calcium,Total 8.2 mg/dL (8.5-10.1); Chloride 111 mmol/L (98-107); Creatinine, Serum 0.73 mg/dL (0.55-1.02); EST Glomerular Filtration Rate 82 mL/min (>60); Est Glom Filt Rate - Afr Amer 100 mL/min (>60); Glucose 87 mg/dL (74-106); Potassium 2.6 mmol/L (3.5-5.1); Sodium Level 144 mmol/L (136-145)
== END ==
LOC: OLS.WHLCAR 05:00
PROVIDERS: PCP Family Medicine; Visit Provider Internal Medicine
DX: F43.0 Acute stress reaction (principal); G20 Parkinson's disease; F02.818 Dementia in other diseases classified elsewhere, unspecified severity, with other behavioral disturbance; F29 Unspecified psychosis not due to a substance or known physiological condition; Z79.899 Other long term (current) drug therapy
CPT/HCPCS: 36415; 80048; 85025

== ENCOUNTER 2023-02-02 13:12 | Inpatient (IN) | payer MEDICARE, MEDICAID, SELFPAY ==
[2023-02-02] VITALS (14 sets, daily range): BP systolic 136–173; BP diastolic 70–91; PULSE 81–103; RESP 14–34; TEMP 35.9–37; O2SAT 90–98; BMI 31.8; BMI 31.4
--- NOTE | 2023-02-02 13:15 | EKG12_ITS ---
Test Reason : SOB Blood Pressure : / mmHG Vent. Rate : 088 BPM Atrial Rate : 088 BPM P-R Int : 242 ms QRS Dur : 078 ms QT Int : 420 ms P-R-T Axes : 099 009 033 degrees QTc Int : 508 ms Sinus rhythm with 1st degree A-V block Prolonged QT Abnormal ECG Confirmed by LENNIE GUPTA, EWA ([id number]), copy editor HEVER SIN ([id number]) on 02/05/2023 2:35:43 PM Referred By: SAMUEL/SUZI Confirmed By:PIO HOGUE MD
--- NOTE | 2023-02-02 13:18 | EX.ED.DYSGE1 ---
HPI <KG Smith - Last Filed: 02/02/23 16:36> History of Present Illness Chief Complaint: Shortness of Breath Narrative Narrative: Patient is a 77-year-old female with history of Parkinson's disease, dementia, atrial fibrillation who lives at [facility] who presents to the emergency department with respiratory distress. Patient did have respiratory distress started this morning, she has audible wheezing, obvious respiratory distress. She does not wear oxygen daily. The squad did give her breathing treatment as well as 125 mg of Solu-Medrol. PFSH <KG Smith - Last Filed: 02/02/23 16:36> [facility] Medical History Atrial fibrillation Dementia Depression Dyspnea on exertion Fall GERD (gastroesophageal reflux disease) Parkinson's disease Home Medications acetaminophen 650 mg tablet 650 mg PO Q4H PRN PAIN/FEVER 09/29/21 [History Last Taken Unknown] bisacodyl 10 mg rectal suppository 10 mg VT DAILY PRN Constipation 09/29/21 [History Last Taken Unknown] carbidopa 25 mg-levodopa 250 mg tablet 1 tab PO 4X/DAY 09/29/21 [History Last Taken Unknown] cholestyramine-aspartame 4 gram oral powder (Prevalite) 4 g PO DAILY PRN PRN Diarrhea 09/29/21 [History Last Taken Unknown] gabapentin 800 mg tablet 100 mg PO QHS 09/29/21 [History Last Taken Unknown] guaifenesin 100 mg/5 mL oral liquid (Ewelina-Tussin) 200 mg PO Q4H PRN Cough 09/29/21 [History Last Taken Unknown] magnesium hydroxide 400 mg/5 mL oral suspension (Milk of Magnesia) 30 ml PO DAILY PRN Constipation 09/29/21 [History Last Taken Unknown] meclizine 12.5 mg tablet 12.5 mg PO TID PRN Vertigo 09/29/21 [History Last Taken Unknown] melatonin 5 mg tablet 5 mg PO QHS 09/29/21 [History Last Taken Unknown] mineral oil 118 ml VT DAILY PRN Constipation 09/29/21 [History Last Taken Unknown] ondansetron HCl 4 mg tablet 4 mg PO Q6H PRN Nausea 09/29/21 [History Last Taken Unknown] simethicone 125 mg capsule 125 mg PO BID gas 09/29/21 [History Last Taken Unknown] sumatriptan succinate 100 mg tablet 100 mg PO Q2H PRN Migraine Headache 09/29/21 [History Last Taken Unknown] ropinirole 1 mg tablet 1 mg PO TID 11/09/21 [History Last Taken Unknown] quetiapine 50 mg tablet 100 mg PO QHS 03/23/22 [History Last Taken Unknown] amiodarone 200 mg tablet 100 mg PO DAILY #90 tabs 09/12/22 [Rx Last Taken Unknown] albuterol sulfate 2.5 mg/3 mL (0.083 %) solution for nebulization 2.5 mg inhalation Q4H PRN Wheezing 02/02/23 [History Last Taken Unknown] dronabinol 2.5 mg capsule 2.5 mg PO BID 02/02/23 [History Last Taken Unknown] escitalopram oxalate 5 mg tablet 5 mg PO DAILY 02/02/23 [History Last Taken Unknown] loratadine 10 mg capsule 10 mg PO DAILY 02/02/23 [History Last Taken Unknown] mirtazapine 7.5 mg tablet 7.5 mg PO QHS 02/02/23 [History Last Taken Unknown] pantoprazole 40 mg tablet,delayed release 40 mg PO DAILY 02/02/23 [History Last Taken Unknown] Allergy/AdvReac Type Severity Reaction Status Date / Time iodine Allergy PT UNSURE Verified 02/02/23 13:13 OF REACTION Sulfa (Sulfonamide Allergy PT UNSURE Verified 02/02/23 13:13 Antibiotics) OF REACTION Family History (Updated 02/02/23 @ 16:[address] Ashutosh Amaral DO) Mother Heart disease Son Heart disease Surgical History History of bilateral knee replacement History of cholecystectomy History of hysterectomy History of intestinal surgery History of open reduction and internal fixation (ORIF) procedure History of rotator cuff surgery History of spinal surgery Social History Smoking Status: Never smoker alcohol intake: never substance use type: does not use caffeine: Yes ROS <KG Smith - Last Filed: 02/02/23 16:36> ROS ED ROS Narrative Constitutional: Negative for fever, chills, weight loss, weakness Eyes: Negative for vision loss, vision change, double vision ENT: Negative for any sore throat, ear pain, congestion Cardiovascular: Negative for any chest pain, tightness, palpitations Respiratory: Negative for any cough, sputum production, hemoptysis.positive for dyspnea, dyspnea on exertion, orthopnea Gastrointestinal: Negative for any abdominal pain, nausea, vomiting, diarrhea, constipation, blood in stool, blood in vomit : Negative for any urinary frequency, dysuria, retention, blood in urine Muscle skeletal: Negative for any muscle joint pain, stiffness, myalgias, arthralgias, neck pain, back pain Neurological: Negative for any headache, syncope, numbness or tingling, dizziness Skin: Negative for any rashes, lumps, itching, abrasions, lacerations Psychiatric: Negative for any depression, anxiety, stress, suicidal ideation, homicidal ideation Hematologic: Negative for any easy bruising, excessive bruising, easy bleeding Allergies: Negative for any eczema, hives, rash EXAM <KG Smith - Last Filed: 02/02/23 16:36> Physical Exam Narrative Exam Narrative: Vital signs reviewed. Patient arrives in obvious respiratory distress. Patient is tachypneic, obvious wheezing HEET: Head normocephalic atraumatic, TMs clear bilaterally. Posterior pharynx is clear, dry mucous membranes. Nares clear bilaterally. Neck: Supple with no lymphadenopathy or tenderness. No signs of meningismus, negative jolt sign. Cardiac: Regular rate and rhythm no murmurs gallops or rubs, equal peripheral pulses bilaterally. Respiratory: Patient is tachypneic, appearing uncomfortable, accessory muscle use. Patient has obvious wheezing bilateral. Wet cough. Patient is conversational dyspnea. Abdomen: Soft, nontender, nondistended. No abdominal bruit or pulsatile masses. No hepatosplenomegaly Extremities: Chronic bilateral lower leg edema these are wrapped. No signs of gross trauma or deformity. Active full range of motion of all extremities. Neuro: Cranial nerves II through XII intact, no focal neurological deficits. Skin: Clean dry and intact with no rash, purpura, petechiae, vesicles or pustules. Backs/flank: No CVA tenderness, no midline spinal tenderness, no deformity. Psych: Normal mood and affect. No SI, HI or acute psychosis. Const Vital Signs: 02/02/23 13:13 02/02/23 13:17 02/02/23 13:36 Temperature 96.6 F L Temperature Source Oral Pulse Rate 86 103 H Respiratory Rate 15 34 H Respiratory Effort Short of Breath Labored Accessory Muscle Use Retracting Respiratory Pattern Tachypnea Blood Pressure Blood Pressure Mean Pulse Ox 92 Oxygen Delivery Method Room Air Room Air Fraction of Inspired Oxygen (FIO2) 02/02/23 13:58 02/02/23 14:12 02/02/23 14:41 Temperature 97 F L Temperature Source Temporal Pulse Rate 100 94 88 Respiratory Rate 33 H 30 H 22 H Respiratory Effort Respiratory Pattern Blood Pressure 136/75 H Blood Pressure Mean 95 Pulse Ox 94 98 98 Oxygen Delivery Method Bi-pap Fraction of Inspired Oxygen (FIO2) 30 30 30 02/02/23 14:42 02/02/23 15:08 02/02/23 15:15 Temperature 97.5 F L Temperature Source Temporal Pulse Rate 88 85 Respiratory Rate 22 H 23 H Respiratory Effort Respiratory Pattern Blood Pressure 136/75 H 173/91 H Blood Pressure Mean 95 118 Pulse Ox 98 98 Oxygen Delivery Method Bi-pap Bi-pap Room Air Fraction of Inspired Oxygen (FIO2) 30 02/02/23 16:00 02/02/23 16:00 02/02/23 16:22 Temperature 96.9 F L 96.9 F L Temperature Source Temporal Temporal Pulse Rate 84 84 84 Respiratory Rate 24 H 24 H 22 H Respiratory Effort Respiratory Pattern Blood Pressure 149/73 H 149/73 H 149/73 H Blood Pressure Mean 98 98 98 Pulse Ox 94 94 94 Oxygen Delivery Method Room Air Room Air Room Air Fraction of Inspired Oxygen (FIO2) <Dr. Sinai Wagner, DO - Last Filed: 02/02/23 17:13> Physical Exam Const Vital Signs: 02/02/23 13:13 02/02/23 13:17 02/02/23 13:36 Temperature 96.6 F L Temperature Source Oral Pulse Rate 86 103 H Respiratory Rate 15 34 H Respiratory Effort Short of Breath Labored Accessory Muscle Use Retracting Respiratory Pattern Tachypnea Blood Pressure Blood Pressure Mean Pulse Ox 92 Oxygen Delivery Method Room Air Room Air Fraction of Inspired Oxygen (FIO2) 02/02/23 13:58 02/02/23 14:12 02/02/23 14:41 Temperature 97 F L Temperature Source Temporal Pulse Rate 100 94 88 Respiratory Rate 33 H 30 H 22 H Respiratory Effort Respiratory Pattern Blood Pressure 136/75 H Blood Pressure Mean 95 Pulse Ox 94 98 98 Oxygen Delivery Method Bi-pap Fraction of Inspired Oxygen (FIO2) 30 30 30 02/02/23 14:42 02/02/23 15:08 02/02/23 15:15 Temperature 97.5 F L Temperature Source Temporal Pulse Rate 88 85 Respiratory Rate 22 H 23 H Respiratory Effort Respiratory Pattern Blood Pressure 136/75 H 173/91 H Blood Pressure Mean 95 118 Pulse Ox 98 98 Oxygen Delivery Method Bi-pap Bi-pap Room Air Fraction of Inspired Oxygen (FIO2) 30 02/02/23 16:00 02/02/23 16:00 02/02/23 16:22 Temperature 96.9 F L 96.9 F L Temperature Source Temporal Temporal Pulse Rate 84 84 84 Respiratory Rate 24 H 24 H 22 H Respiratory Effort Respiratory Pattern Blood Pressure 149/73 H 149/73 H 149/73 H Blood Pressure Mean 98 98 98 Pulse Ox 94 94 94 Oxygen Delivery Method Room Air Room Air Room Air Fraction of Inspired Oxygen (FIO2) MDM <KG Smith - Last Filed: 02/02/23 16:36> [facility] Lab Data Labs: Laboratory Results - last 24 hr 02/02/23 02/02/23 02/02/23 13:15 13:15 13:15 WBC 5.2 RBC 4.17 L Hgb 11.6 L Hct 37.0 MCV 88.7 MCH 27.8 MCHC 31.4 L RDW Std Deviation 48.2 H RDW Coeff of Bob 14.7 H Plt Count 134 L MPV 9.3 Immature Gran % (Auto) 0.200 Neut % (Auto) 87.4 H Lymph % (Auto) 5.9 L Schoolcraft % (Auto) 6.1 Eos % (Auto) 0.2 Baso % (Auto) 0.2 Absolute Neuts (auto) 4.6 Absolute Lymphs (auto) 0.31 L Nucleated RBC % 0 Differential Comment SCANNED Sodium 143 Potassium 3.7 Chloride 108 H Carbon Dioxide 27.0 Anion Gap 8 BUN 13 Creatinine 0.71 Estim Creat Clear Calc 46.77 Est GFR (MDRD) Af Amer 103 Est GFR (MDRD) Non-Af 85 BUN/Creatinine Ratio 18.4 Glucose 121 H Lactic Acid Calcium 8.0 L Troponin I High Sens 148 H* B-Natriuretic Peptide 213.7 H 02/02/23 02/02/23 13:15 15:30 WBC RBC Hgb Hct MCV MCH MCHC RDW Std Deviation RDW Coeff of Bob Plt Count MPV Immature Gran % (Auto) Neut % (Auto) Lymph % (Auto) Schoolcraft % (Auto) Eos % (Auto) Baso % (Auto) Absolute Neuts (auto) Absolute Lymphs (auto) Nucleated RBC % Differential Comment Sodium Potassium Chloride Carbon Dioxide Anion Gap BUN Creatinine Estim Creat Clear Calc Est GFR (MDRD) Af Amer Est GFR (MDRD) Non-Af BUN/Creatinine Ratio Glucose Lactic Acid 1.4 Calcium Troponin I High Sens 194 H* B-Natriuretic Peptide ABG Data ABG results: ABG 02/02/23 13:40 Specimen Type ART Sample Site L Radial pH 7.37 Bicarbonate Actual 24.8 Total CO2 26 Base Excess -1 O2 Saturation 91 L O2 % 21 ABG pCO2 42.7 ABG pO2 64 L Judson Test Positive O2 Delivery Device Room Air EKG Sinus rhythm with first-degree AV block: Attestation: I personally reviewed and interpreted this EKG as follows: Comments: Sinus rhythm with first-degree AV block rate of 88 bpm, VT interval 242 ms, QRS duration 78 ms, no acute ST elevation, no acute infarct noted Sinus rhythm with occasional premature ventricular complex: Attestation: I personally reviewed and interpreted this EKG as follows: Comments: Sinus rhythm with occasional premature ventricular complex, rate of 92 bpm, VT interval 170 ms, QRS duration 90 ms, no acute ST elevation, no acute infarct noted. Differential Diagnosis Chest pain/SOB: pneumothorax, pneumonia, CHF and COPD Treatment and Re-Evaluation :: Patient on initial arrival appear to be in moderate respiratory distress. Patient was tachypneic, audible breath sounds, conversational dyspnea. Patient did receive a full work-up. Patient's CBC was unremarkable, patient's chemistries show an elevated troponin at 148, she does have history of elevated troponin back in 2020. A repeat will be drawn. Patient's blood glucose is 121. Patient's chest x-ray did appear to be consistent with CHF exacerbation. Patient did not respond well to breathing treatments which makes me think that this is less of a COPD exacerbation, this is to be more of a CHF exacerbation. Patient responded well to BiPAP. Patient's blood class showed some compensation however she was working very hard to compensate. Patient's O2 was slightly low at 63.8. Patient was placed on BiPAP, 30% oxygen. Patient is tolerating BiPAP well, she is more relaxed. At this time, believe the patient will need to be admitted to the hospital. There is no evidence of any pneumonia, no evidence of any pneumothorax. Consider CTA of the chest however patient has adventitious lung sounds, bilateral lower leg edema with wet lung sounds. Patient be given 40 mg of IV Lasix here. Patient will need to be diuresed as well as BiPAP. Patient will need to be admitted to the hospital. Talk with hospitalist, who requested the patient be taken off BiPAP. I spoke with respiratory therapy, they will take the patient on BiPAP. Hospitalist did state that he will accept the patient. <Dr. Sinai Wagner, DO - Last Filed: 02/02/23 17:13> [facility] Narrative Medical decision making narrative: I have personally performed a face to face assessment of the patient and have reviewed the BERHANE Note. I performed a substantive portion of the visit including all aspects of the following. My correia findings include: History is patient is evaluated for increased work of breathing and difficulty breathing. She does have a history of atrial fibrillation, dementia, Parkinson disease, restless leg syndrome and possibly COPD. She received Solu-Medrol and a DuoNeb in route. She still has increased work of breathing upon arrival and is significantly tachypneic so she is given an additional aerosol. Patient is able to tell me that she has had worsening respiratory symptoms for about 2 to 3 days and feels that there is some congestion in her chest. But otherwise history is somewhat limited. Exam is Patient is in respiratory distress. She is tachypneic with increased work of breathing. She has crackles throughout with into Tory and expiratory wheezing. She has positive JVD. She has peripheral edema. Heart is regular rate and rhythm. Medical Decision Making Patient is given aerosols with no sniffing improvement in her work of breathing. Is placed on BiPAP for her work of breathing. She responded really well to this and her respiratory rate improved significantly. Her ABG is consistent with hypoxia but has no hypercapnia or respiratory/metabolic acidosis associate with this. Patient is given IV Lasix as I suspect her primary issue is cardiac/CHF exacerbation. She is have an elevation of her high-sensitivity troponin of 148. EKG does not show acute ischemic changes. Chest x-ray interpreted by myself 1 view is consistent with chronic change as well as pulmonary vascular congestion. As patient does not have a leukocytosis in the, fever and we do not think this is infectious we will defer antibiotics at this time. Case is discussed with admitting physician, Dr. Amaral, who accepted to the PCU. He would like to trial her off BiPAP now that she is much more comfortable. Other additions or changes: [None] Lab Data Attestation: I reviewed the patient's lab results. Labs: Laboratory Results - last 24 hr 02/02/23 02/02/23 02/02/23 13:15 13:15 13:15 WBC 5.2 RBC 4.17 L Hgb 11.6 L Hct 37.0 MCV 88.7 MCH 27.8 MCHC 31.4 L RDW Std Deviation 48.2 H RDW Coeff of Bob 14.7 H Plt Count 134 L MPV 9.3 Immature Gran % (Auto) 0.200 Neut % (Auto) 87.4 H Lymph % (Auto) 5.9 L Schoolcraft % (Auto) 6.1 Eos % (Auto) 0.2 Baso % (Auto) 0.2 Absolute Neuts (auto) 4.6 Absolute Lymphs (auto) 0.31 L Nucleated RBC % 0 Differential Comment SCANNED Sodium 143 Potassium 3.7 Chloride 108 H Carbon Dioxide 27.0 Anion Gap 8 BUN 13 Creatinine 0.71 Estim Creat Clear Calc 46.77 Est GFR (MDRD) Af Amer 103 Est GFR (MDRD) Non-Af 85 BUN/Creatinine Ratio 18.4 Glucose 121 H Lactic Acid Calcium 8.0 L Troponin I High Sens 148 H* B-Natriuretic Peptide 213.7 H 02/02/23 02/02/23 13:15 15:30 WBC RBC Hgb Hct MCV MCH MCHC RDW Std Deviation RDW Coeff of Bob Plt Count MPV Immature Gran % (Auto) Neut % (Auto) Lymph % (Auto) Schoolcraft % (Auto) Eos % (Auto) Baso % (Auto) Absolute Neuts (auto) Absolute Lymphs (auto) Nucleated RBC % Differential Comment Sodium Potassium Chloride Carbon Dioxide Anion Gap BUN Creatinine Estim Creat Clear Calc Est GFR (MDRD) Af Amer Est GFR (MDRD) Non-Af BUN/Creatinine Ratio Glucose Lactic Acid 1.4 Calcium Troponin I High Sens 194 H* B-Natriuretic Peptide ABG Data ABG results: ABG 02/02/23 13:40 Specimen Type ART Sample Site L Radial pH 7.37 Bicarbonate Actual 24.8 Total CO2 26 Base Excess -1 O2 Saturation 91 L O2 % 21 ABG pCO2 42.7 ABG pO2 64 L Judson Test Positive O2 Delivery Device Room Air Discharge Plan Triage Chief Complaint: Shortness of Breath ED Midlevel Provider: Marty Whipple ED Provider: Sinai Wagner Dx/Rx/DC Orders Clinical Impression: Acute exacerbation of CHF (congestive heart failure), Respiratory failure, Elevated troponin Primary Care Provider: Marty Rodrigues
[2023-02-02] MEDS: Albuterol 2.5 MG/3 ML VIAL.NEB. INHALATION ×2 (13:29→20:15)
[2023-02-02] MEDS: Ipratropium/Albuterol Sulfate 3 ML AMPUL.NEB INHALATION (13:29)
[2023-02-02 13:36] LABS: Absolute Lymphocyte Count 0.31 X10^3/uL (0.83-4.51); Absolute Neutrophil Count 4.6 X10^3/uL (2.0-7.7); Basophil# 0.01 X10^3/uL; Basophil% 0.2 % (0-1); Eosinophil# 0.01 X10^3/uL; Eosinophils% 0.2 % (0-5); Hemoglobin 11.6 g/dL (12.0-15.0); Lymphocyte # 0.31 X10^3/ul (0.83-4.51); Lymphocyte % 5.9 % (19-41); Mean Corp Hgb Conc 31.4 g/dL (32-36); Mean Corpuscular Hgb 27.8 pg (27.0-32.0); Mean Corpuscular Volume 88.7 fL (81-99); Mean Platelet Vol. 9.3 fl (6.2-12.0); Monocyte# 0.32 X10^3/uL; Monocyte% 6.1 % (0-10); NRBC Flagged by Analyzer 0 % (0-5); Neutrophil # 4.58 X10^3/uL (2.7-7.7); Neutrophil % 87.4 % (47-70); POSITIVE DIFFERENTIAL YES; Platelet Count 134 K/mm3 (150-450); RBC Distribution Width CV 14.7 % (11.6-14.6); RBC Distribution Width SD 48.2 fl (35.1-43.9); Red Blood Count 4.17 M/mm3 (4.2-5.4); White Blood Count 5.2 K/mm3 (4.4-11.0)
--- NOTE | 2023-02-02 13:36 | CPS ---
2 aerosols given, no change in work of breathing, audible wheezing and coarse audible crackles. Patient's Parkinson's causing whole body movements. Discussed bipap with patient. will address with RODOLFO Ferguson, and Dr. Wagner.
--- NOTE | 2023-02-02 13:43 | RAD_ITS ---
STUDY: X-RAY CHEST REASON FOR EXAM: Female, 77 years old. Cough and shortness of breath. TECHNIQUE: Single AP portable view of the chest. COMPARISON: Comparison is made with prior study of September 29, 2021. FINDINGS: EKG electrodes are seen. There is evidence of vascular congestion and a mild degree of CHF. There is no demonstrated pleural abnormality. Normal size heart. Normal mediastinum and jazmine. Normal visualized pulmonary arteries. There is atherosclerotic tortuosity of the aortic arch and descending thoracic aorta. There are diffuse degenerative changes of the visualized thoracic spine. Normal visualized ribs, clavicles, and shoulders. There is no demonstrated abnormality of the visualized soft tissue structures of the upper abdomen. RAD/Chest 1 View (Portable) IMPRESSION: Mild degree of vascular congestion and CHF. Electronically Signed: Yannick Roldan MD at 14:11 EDT ,
[2023-02-02 13:46] LABS: Differential Indicated SCAN CRITERIA MET
[2023-02-02 13:46] LABS: Allen Test Positive; Base Excess -1 mmol/L (-2 to +2); Bicarbonate 24.8 mmol/L (22-26); Blood Gas Specimen Type ART; FI02 21; O2 Delivery Device Room Air; PO2 64 mmHG (75-100); SITE L Radial; SO2 91 % (95-99); Total Carbon Dioxide 26 mmol/L; pCO2 42.7 mmHg (35-45); pH 7.37 (7.35-7.45)
[2023-02-02 13:54] LABS: Anion Gap 8 (5-15); BUN 13 mg/dL (7-18); BUN/Creat Ratio 18.4 RATIO (10-20); Chloride 108 mmol/L (98-107); Creatinine, Serum 0.71 mg/dL (0.55-1.02); EST Glomerular Filtration Rate 85 mL/min (>60); Est Glom Filt Rate - Afr Amer 103 mL/min (>60); Estimated Creatinine Clearance 46.77 ml/min; Glucose 121 mg/dL (74-106); Potassium 3.7 mmol/L (3.5-5.1); Sodium Level 143 mmol/L (136-145); Troponin-I HS 148 pg/mL (3.0-54.0)
--- NOTE | 2023-02-02 13:55 | CPS ---
Placed patient on BiPAP, started at 8/4 for patient tolerance. Will titrate setting as needed and tolerate.
[2023-02-02 14:01] LABS: Lactic Acid 1.4 mmol/L (0.4-1.9)
--- NOTE | 2023-02-02 14:12 | CPS ---
mask readjusted, patient sleeping now. IPAP and EPAP increased from 8/4 to 10/5.
[2023-02-02 14:19] LABS: Differential Comment SCANNED
[2023-02-02 14:22] LABS: BNP,B-Type NATRIURETIC PEPTIDE 213.7 pg/mL (0-100)
--- NOTE | 2023-02-02 14:39 | EKG12_ITS ---
Test Reason : REPEAT- Blood Pressure : / mmHG Vent. Rate : 092 BPM Atrial Rate : 092 BPM P-R Int : 170 ms QRS Dur : 090 ms QT Int : 396 ms P-R-T Axes : 061 007 -20 degrees QTc Int : 489 ms Sinus rhythm with occasional Premature ventricular complexes Nonspecific ST and T wave abnormality Abnormal ECG Confirmed by LENNIE GUPTA, EWA ([id number]), online editor HEVER SIN ([id number]) on 02/05/2023 2:36:59 PM Referred By: SAMUEL Confirmed By:PIO HOGUE MD
[2023-02-02] MEDS: Furosemide 40 MG/4 ML Vial IV ×2 (14:43→18:52)
--- NOTE | 2023-02-02 15:15 | CPS ---
Patient taken off bipap per admitting doctor request. Audible wheezing noted as before bipap start.
[2023-02-02 16:22] LABS: Troponin-I HS 194 pg/mL (3.0-54.0)
--- NOTE | 2023-02-02 16:47 | HP.PCM.HOS_ITS ---
HPI - General General Date of Admission: 02/02/23 Date of Service: 02/02/23 Chief Complaint: shortness of breath HPI Narrative ROBB CHAVEZ, is a 77 F who presents with shortness of breath for the past 3 days. Pt was not hypoxic but in visible distress and was placed on BiPAP in ED. She was found to have CHF on CXR and received 40 mg of IV furosemide. Patient was slowly taken off the BiPAP in the emergency room and was stopped breathing better, according to her daughter that when she initially presented. [facility] Medical History Atrial fibrillation Dementia Depression Dyspnea on exertion Fall GERD (gastroesophageal reflux disease) Parkinson's disease Home Medications acetaminophen 650 mg tablet 650 mg PO Q4H PRN PAIN/FEVER 09/29/21 [History Last Taken Unknown] bisacodyl 10 mg rectal suppository 10 mg MO DAILY PRN Constipation 09/29/21 [History Last Taken Unknown] carbidopa 25 mg-levodopa 250 mg tablet 1 tab PO 4X/DAY 09/29/21 [History Last Taken Unknown] cholestyramine-aspartame 4 gram oral powder (Prevalite) 4 g PO DAILY PRN PRN Diarrhea 09/29/21 [History Last Taken Unknown] gabapentin 800 mg tablet 100 mg PO QHS 09/29/21 [History Last Taken Unknown] guaifenesin 100 mg/5 mL oral liquid (Ewelina-Tussin) 200 mg PO Q4H PRN Cough 09/29/21 [History Last Taken Unknown] magnesium hydroxide 400 mg/5 mL oral suspension (Milk of Magnesia) 30 ml PO DAILY PRN Constipation 09/29/21 [History Last Taken Unknown] meclizine 12.5 mg tablet 12.5 mg PO TID PRN Vertigo 09/29/21 [History Last Taken Unknown] melatonin 5 mg tablet 5 mg PO QHS 09/29/21 [History Last Taken Unknown] mineral oil 118 ml MO DAILY PRN Constipation 09/29/21 [History Last Taken Unknown] ondansetron HCl 4 mg tablet 4 mg PO Q6H PRN Nausea 09/29/21 [History Last Taken Unknown] simethicone 125 mg capsule 125 mg PO BID gas 09/29/21 [History Last Taken Unknown] sumatriptan succinate 100 mg tablet 100 mg PO Q2H PRN Migraine Headache 09/29/21 [History Last Taken Unknown] ropinirole 1 mg tablet 1 mg PO TID 11/09/21 [History Last Taken Unknown] quetiapine 50 mg tablet 100 mg PO QHS 03/23/22 [History Last Taken Unknown] amiodarone 200 mg tablet 100 mg PO DAILY #90 tabs 09/12/22 [Rx Last Taken Unknown] albuterol sulfate 2.5 mg/3 mL (0.083 %) solution for nebulization 2.5 mg inhalation Q4H PRN Wheezing 02/02/23 [History Last Taken Unknown] dronabinol 2.5 mg capsule 2.5 mg PO BID 02/02/23 [History Last Taken Unknown] escitalopram oxalate 5 mg tablet 5 mg PO DAILY 02/02/23 [History Last Taken Unknown] loratadine 10 mg capsule 10 mg PO DAILY 02/02/23 [History Last Taken Unknown] mirtazapine 7.5 mg tablet 7.5 mg PO QHS 02/02/23 [History Last Taken Unknown] pantoprazole 40 mg tablet,delayed release 40 mg PO DAILY 02/02/23 [History Last Taken Unknown] Allergy/AdvReac Type Severity Reaction Status Date / Time iodine Allergy PT UNSURE Verified 02/02/23 13:13 OF REACTION Sulfa (Sulfonamide Allergy PT UNSURE Verified 02/02/23 13:13 Antibiotics) OF REACTION Family History (Updated 02/02/23 @ 16:[address] Ashutosh Amaral DO) Mother Heart disease Son Heart disease Surgical History History of bilateral knee replacement History of cholecystectomy History of hysterectomy History of intestinal surgery History of open reduction and internal fixation (ORIF) procedure History of rotator cuff surgery History of spinal surgery Social History Smoking Status: Never smoker alcohol intake: never substance use type: does not use caffeine: Yes ROS ROS Narrative Chronic lower extremity edema. Patient's weight fluctuates quite drastically between 150 and 190. Patient had lost weight with being on a Parkinson's med. No chest pain. All review of systems were negative except as mentioned above in the history of present illness and the other review of systems. Vital Signs Vital Signs Vital Signs: 02/02/23 13:13 02/02/23 13:17 02/02/23 13:36 Temperature 35.9 C L Temperature Source Oral Pulse Rate 86 103 H Respiratory Rate 15 34 H Respiratory Effort Short of Breath Labored Accessory Muscle Use Retracting Respiratory Pattern Tachypnea Blood Pressure Blood Pressure Mean Pulse Ox 92 Oxygen Delivery Method Room Air Room Air Fraction of Inspired Oxygen (FIO2) 02/02/23 13:58 02/02/23 14:12 02/02/23 14:41 Temperature 36.1 C L Temperature Source Temporal Pulse Rate 100 94 88 Respiratory Rate 33 H 30 H 22 H Respiratory Effort Respiratory Pattern Blood Pressure 136/75 H Blood Pressure Mean 95 Pulse Ox 94 98 98 Oxygen Delivery Method Bi-pap Fraction of Inspired Oxygen (FIO2) 30 30 30 02/02/23 14:42 02/02/23 15:08 02/02/23 15:15 Temperature 36.4 C L Temperature Source Temporal Pulse Rate 88 85 Respiratory Rate 22 H 23 H Respiratory Effort Respiratory Pattern Blood Pressure 136/75 H 173/91 H Blood Pressure Mean 95 118 Pulse Ox 98 98 Oxygen Delivery Method Bi-pap Bi-pap Room Air Fraction of Inspired Oxygen (FIO2) 30 02/02/23 16:00 02/02/23 16:00 02/02/23 16:22 Temperature 36.1 C L 36.1 C L Temperature Source Temporal Temporal Pulse Rate 84 84 84 Respiratory Rate 24 H 24 H 22 H Respiratory Effort Respiratory Pattern Blood Pressure 149/73 H 149/73 H 149/73 H Blood Pressure Mean 98 98 98 Pulse Ox 94 94 94 Oxygen Delivery Method Room Air Room Air Room Air Fraction of Inspired Oxygen (FIO2) Weight Weight: 94.9 kg Body Mass Index (BMI) 31.8 Physical Exam Const alert and no apparent distress Constitutional Narrative: Seen in emergency room and had been taken off BiPAP. Patient had some coarse upper respiratory wheezes. Patient was no respiratory distress nor does she have any conversational dyspnea. General Appearance: cooperative HEENT normocephalic and head/scalp atraumatic Eyes EOMs intact bilaterally Eyes Narrative: No icterus Neck no lymphadenopathy Neck Narrative: Positive JVD Resp Resp Narrative: Coarse upper respiratory wheezes auscultated throughout. Cardio regular rate, regular rhythm, S1 normal heart sound and S2 normal heart sound GI normal to inspection, nondistended, normoactive bowel sounds, soft to palpation, non-tender and non-distended Extremity Extremity Narrative: Bilateral lower extremity edema up into the buttocks. Neuro oriented x3 and moves all extremities Sensorium / Orientation: awake and alert Psych affect normal Results Lab / Micro Data Attestation: I reviewed the patient's lab results. Lab results narrative: Chest x-ray reviewed and showed pulmonary vascular congestion. Result Diagrams: 02/02/23 13:15 02/02/23 13:15 Labs: Laboratory Results - last 24 hr 02/02/23 13:15: WBC 5.2, RBC 4.17 L, Hgb 11.6 L, Hct 37.0, MCV 88.7, MCH 27.8, MCHC 31.4 L, RDW Std Deviation 48.2 H, RDW Coeff of Bob 14.7 H, Plt Count 134 L, MPV 9.3, Immature Gran % (Auto) 0.200, Neut % (Auto) 87.4 H, Lymph % (Auto) 5.9 L, [place] % (Auto) 6.1, Eos % (Auto) 0.2, Baso % (Auto) 0.2, Absolute Neuts (auto) 4.6, Absolute Lymphs (auto) 0.31 L, Nucleated RBC % 0, Differential Comment SCANNED 02/02/23 13:15: Sodium 143, Potassium 3.7, Chloride 108 H, Carbon Dioxide 27.0, Anion Gap 8, BUN 13, Creatinine 0.71, Estim Creat Clear Calc 46.77, Est GFR (MDRD) Af Amer 103, Est GFR (MDRD) Non-Af 85, BUN/Creatinine Ratio 18.4, Glucose 121 H, Calcium 8.0 L, Troponin I High Sens 148 H* 02/02/23 13:15: B-Natriuretic Peptide 213.7 H 02/02/23 13:15: Lactic Acid 1.4 02/02/23 15:30: Troponin I High Sens 194 H* Micro: Microbiology 02/02/23 13:42 Nasal Secretion SARS-CoV-2 & FLU Antigen (Rapid) - Final ABG Data ABG results: ABG 02/02/23 13:40 Specimen Type ART Sample Site L Radial pH 7.37 Bicarbonate Actual 24.8 Total CO2 26 Base Excess -1 O2 Saturation 91 L O2 % 21 ABG pCO2 42.7 ABG pO2 64 L Judson Test Positive O2 Delivery Device Room Air Assessment & Plan Assessment/Plan (1) Acute exacerbation of CHF (congestive heart failure): PLAN: Heart failure with preserved ejection fraction. EF of 65% from 2D echocardiogram from September 29, 2021. Patient did receive 40 mg of IV furosemide in the emergency room. We will continue with 40 mg IV twice daily Repeat echocardiogram, fluid restrict 1.5 L/day, daily weights. (2) Elevated troponin: PLAN: Unclear if this is a new event or this is just chronic. Patient's troponins have always been elevated when checked. Troponins have creeped up slightly. If this is a myocardial infarction I would suspect this to be a type II event. We will not treat it as she is not have any acute coronary syndrome symptoms. (3) Acute respiratory failure with hypoxia: PLAN: Currently resolved secondary to CHF exacerbation. Patient was hypoxic on her ABG and was tachypneic with respiratory rate of 34. Patient was placed on BiPAP for concern for impending respiratory collapse. Patient responded well with the furosemide and bronchodilators. Patient has subsequent been switched over to room air but will see if she may require oxygen. PLAN: Plan Chronic conditions * Parkinson's: Continue with Sinemet * Dementia * GERD: Continue with PPI * Depression: Continue with Lexapro VTE prophylaxis: With enoxaparin CODE STATUS: Addressed with the patient. Patient is to be DNR Comfort Care arrest. Okay for short-term intubation. Case discussed with the patient's daughter at bedside Charges/Coding Visit Charges Inpatient E&M: 43126 Init Hosp L3
--- NOTE | 2023-02-02 17:23 | ECHOD_ITS ---
Reason For Study: CHF Procedure This was a 2D Doppler, Color Flow transthoracic echocardiogram. Exam performed portable in patient room. Left Ventricle Normal size and thickness. The left ventricular ejection fraction is 65 %. Diastolic function is indeterminate. Right Ventricle Normal right ventricle. Atria The left atrium is mildly enlarged. Normal right atrium. Mitral Valve Trivial mitral valve insufficiency. Tricuspid Valve Mild to moderate (1-2+) tricuspid valve insufficiency. Right ventricular systolic pressure estimated to be 40 mmHg. Aortic Valve Mild diffuse aortic valve calcification. Mild aortic stenosis. Mild (1+) aortic valve insufficiency. Pulmonic Valve The pulmonic valve is not well visualized. Great Vessels Normal sized aortic root. Pericardium/Pleural No pericardial effusion. MMode/2D Measurements & Calculations LVIDd: 4.0 cm IVSd: 1.00 cm LVOT diam: 2.1 cm LVIDs: 2.5 cm LVPWd: 0.91 cm LVOT area: 3.3 cm2 RVDd: 3.0 cm FS: 38.0 % Ao root diam: 3.1 cm LAV(MOD-bp): 53.4 ml LVAd ap4: 24.9 cm2 LAV(MOD-bp) Indexed: 25.6 ml/m2 LVLd ap4: 7.9 cm LAV(MOD-sp2): 56.4 ml EDV(MOD-sp4): 67.5 ml LAV(MOD-sp4): 49.7 ml EDV(sp4-el): 66.5 ml LVAs ap4: 13.6 cm2 LVLs ap4: 6.7 cm ESV(MOD-sp4): 24.4 ml ESV(sp4-el): 23.2 ml EF(MOD-sp4): 63.9 % EF(sp4-el): 65.1 % LVAd ap2: 26.3 cm2 SV(MOD-sp4): 43.1 ml SV(MOD-sp2): 46.2 ml LVLd ap2: 7.8 cm EDV(MOD-sp2): 77.3 ml EDV(sp2-el): 75.3 ml LVAs ap2: 15.7 cm2 LVLs ap2: 6.9 cm ESV(MOD-sp2): 31.1 ml ESV(sp2-el): 30.3 ml EF(MOD-sp2): 59.7 % SV(sp4-el): 43.3 ml LA dimension(2D): 3.9 cm LA A4 area: 19.3 cm2 RA A4 area: 17.5 cm2 TAPSE_phl: 2.9 cm Time Measurements MV dec time: 0.21 sec Doppler Measurements & Calculations MV E max baron: 87.1 cm/sec Lat Peak E' Baron: 7.9 cm/sec Med Peak E' Baron: 7.4 cm/sec MV A max baron: 88.3 cm/sec E/E' lat: 11.0 E/E' med: 11.8 MV E/A: 0.99 Ao V2 max: 214.9 cm/sec AI max baron: 299.9 cm/sec MV dec slope: 425.0 cm/sec2 Ao max P.6 mmHg AI max P.0 mmHg Ao V2 mean: 151.6 cm/sec Ao mean P.5 mmHg AI dec slope: 154.5 cm/sec2 Ao V2 VTI: 47.4 cm AI P1/2t: 568.5 msec AV (velocity ratio): 0.56 MANGO(I,D): 1.9 cm2 MANGO(V,D): 2.0 cm2 LV V1 max: 131.9 cm/sec SV(LVOT): 88.5 ml PA V2 max: 118.9 cm/sec LV V1 max P.0 mmHg LV V1 mean P.8 mmHg LV V1 mean: 90.1 cm/sec LV V1 VTI: 26.6 cm TR max baron: 284.8 cm/sec TR max P.4 mmHg ECHO/Echo Complete Interpretation Summary The left ventricular ejection fraction is 65 %. Diastolic function is indeterminate. Right ventricular systolic pressure estimated to be 40 mmHg. Mild aortic stenosis. Mild (1+) aortic valve insufficiency. Mild to moderate (1-2+) tricuspid valve insufficiency. Ordering Physician: Ashutosh Amaral Referring Physician: Marty Rodrigues Performed By: Leonila Fraser RDCS
[2023-02-02] MEDS: Acetaminophen 325 MG Tablet 650 MG PO (18:51)
[2023-02-02] MEDS: 0.9% Saline Lock 10 ML Syringe IV ×2 (18:52→22:51)
[2023-02-02] MEDS: Carbidopa/Levodopa 25/250 Tablet PO ×2 (18:53→22:51)
[2023-02-02 20:07] LABS: Troponin-I HS 196 pg/mL (3.0-54.0)
--- NOTE | 2023-02-02 20:24 | PCM.HOSP.N ---
Hospitalist Note Discussed with RT, patient still having notable wheezing, increased WOB, no underlying lung disease history, admitted for CHF Exacerbation, last lasix 1800. Will place back on BIPAP which was used in the ED with success.
[2023-02-02] MEDS: MELATONIN 10 MG TABLET 5 MG PO (22:51)
[2023-02-02] MEDS: QUEtiapine 100 MG Tablet PO (22:51)
[2023-02-02] MEDS: Pramipexole Di-HCl 0.5 MG Tablet PO (22:51)
[2023-02-02] MEDS: Mirtazapine 15 MG Tablet 7.5 MG PO (22:51)
[2023-02-02] MEDS: Gabapentin 100 MG Capsule PO (22:51)
[2023-02-03] VITALS (9 sets, daily range): BP systolic 123–174; BP diastolic 62–82; PULSE 66–96; RESP 18–24; TEMP 36.4–36.8; O2SAT 95–97; BMI 30.8
[2023-02-03] MEDS: hydrALAZINE 20 MG/ML Vial 10 MG IV (04:28)
[2023-02-03] MEDS: 0.9% Saline Lock 10 ML Syringe IV ×2 (04:28→09:38)
[2023-02-03] MEDS: Pramipexole Di-HCl 0.5 MG Tablet PO ×3 (06:01→20:59)
[2023-02-03] MEDS: Carbidopa/Levodopa 25/250 Tablet PO ×4 (09:06→20:59)
[2023-02-03] MEDS: Amiodarone 200 MG Tablet 100 MG PO (09:07)
[2023-02-03] MEDS: Escitalopram Oxalate 10 MG Tablet 5 MG PO (09:07)
[2023-02-03] MEDS: Pantoprazole Sodium 40 MG Tablet PO (09:07)
[2023-02-03] MEDS: Loratadine 10 MG Tablet PO (09:08)
[2023-02-03] MEDS: Furosemide 40 MG/4 ML Vial IV ×2 (09:08→18:34)
[2023-02-03] MEDS: Enoxaparin 40 MG/0.4 ML Syringe SC (09:08)
--- NOTE | 2023-02-03 12:35 | PCM.PROGNOTE ---
Subjective Subjective Patient seen and examined. She had no active complaints. She felt her breathing was improving. She admits to a cough which is nonproductive. She denied any chest pain, palpitations, dizziness, nausea or vomiting. Review of systems otherwise negative. Objective Data Objective Data Vital Signs: Vital Signs Temp Pulse Resp BP Pulse Ox O2 Del Method FiO2 98.2 F 77 20 H 159/73 H 97 Room Air 30 02/03/23 07:49 02/03/23 11:27 02/03/23 11:27 02/03/23 07:49 02/03/23 07:49 02/03/23 09:17 02/02/23 14:42 Oxygen Delivery Method Room Air Weight: 185 lb 6.54 oz Body Mass Index (BMI) 30.8 Intake & Output: Intake and Output for Last 24 Hours 02/01/23 02/02/23 02/03/23 23:59 23:59 23:59 Intake Total 240 / 240 Output Total 4050 / 4050 200 / 200 Balance -3810 / -3810 -200 / -200 Lab / Micro Data Result Diagrams: 02/02/23 13:15 02/02/23 13:15 Labs: Laboratory Results - last 24 hr 02/02/23 13:15: WBC 5.2, RBC 4.17 L, Hgb 11.6 L, Hct 37.0, MCV 88.7, MCH 27.8, MCHC 31.4 L, RDW Std Deviation 48.2 H, RDW Coeff of Bob 14.7 H, Plt Count 134 L, MPV 9.3, Immature Gran % (Auto) 0.200, Neut % (Auto) 87.4 H, Lymph % (Auto) 5.9 L, [place] % (Auto) 6.1, Eos % (Auto) 0.2, Baso % (Auto) 0.2, Absolute Neuts (auto) 4.6, Absolute Lymphs (auto) 0.31 L, Nucleated RBC % 0, Differential Comment SCANNED 02/02/23 13:15: Sodium 143, Potassium 3.7, Chloride 108 H, Carbon Dioxide 27.0, Anion Gap 8, BUN 13, Creatinine 0.71, Estim Creat Clear Calc 46.77, Est GFR (MDRD) Af Amer 103, Est GFR (MDRD) Non-Af 85, BUN/Creatinine Ratio 18.4, Glucose 121 H, Calcium 8.0 L, Troponin I High Sens 148 H* 02/02/23 13:15: B-Natriuretic Peptide 213.7 H 02/02/23 13:15: Lactic Acid 1.4 02/02/23 15:30: Troponin I High Sens 194 H* 02/02/23 19:15: Troponin I High Sens 196 H* Micro: Microbiology 02/02/23 13:42 Nasal Secretion SARS-CoV-2 & FLU Antigen (Rapid) - Final ABG Data ABG results: ABG 02/02/23 13:40 Specimen Type ART Sample Site L Radial pH 7.37 Bicarbonate Actual 24.8 Total CO2 26 Base Excess -1 O2 Saturation 91 L O2 % 21 ABG pCO2 42.7 ABG pO2 64 L Judson Test Positive O2 Delivery Device Room Air Radiography Diagnostic Testing: Radiology Impression Echocardiogram 02/02/23 17:23 Interpretation Summary The left ventricular ejection fraction is 65 %. Diastolic function is indeterminate. Right ventricular systolic pressure estimated to be 40 mmHg. Mild aortic stenosis. Mild (1+) aortic valve insufficiency. Mild to moderate (1-2+) tricuspid valve insufficiency. Ordering Physician: Ashutosh Amaral Referring Physician: Marty Rodrigues Performed By: Leonila Fraser RDCS Physical Exam Const alert, oriented x3 and no apparent distress General Appearance: cooperative HEENT normocephalic, head/scalp atraumatic and moist oral mucous membranes Eyes PERRL and EOMs intact bilaterally Neck no lymphadenopathy and supple General: trachea midline Lymph Lymphatic: no lymphadenopathy noted and no lymphedema noted Resp Resp Narrative: markedly diminished breath sounds bibasally, bilateral wheezing and rhonchi in all lung davis. Was on breathing treatments at time of review, and subsequently transitioned to room air. Cardio regular rate, regular rhythm, S1 normal heart sound, S2 normal heart sound and no murmurs GI normal to inspection, nondistended, normoactive bowel sounds, soft to palpation and non-tender Extremity normal capillary refill, no clubbing, cyanosis or edema and no calf tenderness Skin General Skin Exam: no breakdown Neuro CN's II-XII intact bilaterally, no focal motor deficits, no sensory deficits noted and deep tendon reflexes 2+ bilaterally Motor Exam: strength 5/5 throughout Psych thought process normal and cooperative Appearance: appropriate Assessment & Plan Assessment/Plan (1) Acute exacerbation of CHF (congestive heart failure): (2) Acute respiratory failure with hypoxia: PLAN: Plan #Acute respiratory failure due to acute on chronic exacerbation of heart failure being di[facility]ed [facility] IV lasix still has significant wheezing and rhonchi in all lung davis. given oxygen as needed and titrate to maintain sats >90% 2D echo showed EF of 65% with indeterminate diastolic function and RVSp of 40mmHg as well as mild aortic stenosis and mild to moderate tricuspid valve insufficiency and mild aortic valve insufficiency monitor intake and output. fluid restriction to 1500cc daily #Elevated troponin: has chronically elevated troponins. Denies any chest pain. 2D echo as above. Will monitor. Likely due to hypoxia. #Atrial fibrillation: on amiodarone. Not anticoagulated, unclear why. #History of Parkinson's disease: on levodopa carbidopa #Dementia: on #Depression: on lexapro. #Restless leg syndrome: on pramipexole DVT prophylaxis: on enoxaparin Charges/Coding Visit Charges Inpatient E&M: 16536 Subs Hosp L2
--- NOTE | 2023-02-03 13:16 | NURSING ---
pt w/dementia. unable to answer questions
[2023-02-03] MEDS: Menthol/Lanolin/Calamine/Znox 113 GM Tube 1 APPLIC TOPICAL ×2 (14:54→21:00)
[2023-02-03] MEDS: Nystatin Powder 15gm Bottle 1 APPLIC TOPICAL ×2 (14:55→21:00)
[2023-02-03] MEDS: Dronabinol 2.5 MG Capsule PO ×2 (15:09→18:32)
[2023-02-03 15:14] LABS: Anion Gap 9 (5-15); BUN 19 mg/dL (7-18); BUN/Creat Ratio 18.8 RATIO (10-20); Calcium,Total 8.5 mg/dL (8.5-10.1); Chloride 105 mmol/L (98-107); Cholesterol 100 mg/dL (200); Creatinine, Serum 1.01 mg/dL (0.55-1.02); EST Glomerular Filtration Rate 56 mL/min (>60); Est Glom Filt Rate - Afr Amer 68 mL/min (>60); Estimated Creatinine Clearance 41.31 ml/min; Glucose 110 mg/dL (74-106); High Density Lipoprotein 47 mg/dL; Potassium 2.7 mmol/L (3.5-5.1); Sodium Level 143 mmol/L (136-145); Triglycerides 66 mg/dL; Very Low Density Lipoprotein 13 mg/dL (5-40)
--- NOTE | 2023-02-03 17:55 | CASEMGMT ---
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 Patient's daughter reports she is patient's HCPOA and will bring the updated documents as patient's was the previous HCPOA and he has since passed. Patient's daughter reports patient is from [facility] and will return when medically ready. Patient oriented to self and attempting to talk with SW and patient's family but not making sense. robotype operator reports patient here through weekend, updates sent to [place] via [employer]. Plan: return to [place] Nellie YOUNG, JONATHAN
[2023-02-03] MEDS: Potassium Chloride 10mEq/100mL 10 MEQ/100 ML IV.SOLN. 100 MEQ IV BOLUS ×4 (18:33→22:54)
[2023-02-03] MEDS: MELATONIN 10 MG TABLET 5 MG PO (20:59)
[2023-02-03] MEDS: QUEtiapine 100 MG Tablet PO (20:59)
[2023-02-03] MEDS: Gabapentin 100 MG Capsule PO (20:59)
[2023-02-03] MEDS: Mirtazapine 15 MG Tablet 7.5 MG PO (21:00)
[2023-02-04 03:03] VITALS: BP 130/64; PULSE 76; RESP 19; TEMP 36.7; O2SAT 94
[2023-02-04 04:04] VITALS: BMI 29.3
[2023-02-04] MEDS: Pramipexole Di-HCl 0.5 MG Tablet PO ×3 (05:41→21:15)
[2023-02-04 06:30] LABS: Absolute Lymphocyte Count 0.94 X10^3/uL (0.83-4.51); Absolute Neutrophil Count 3.3 X10^3/uL (2.0-7.7); Basophil# 0.02 X10^3/uL; Basophil% 0.4 % (0-1); Eosinophil# 0.05 X10^3/uL; Eosinophils% 1.1 % (0-5); Hematocrit 34.3 % (37-47); Hemoglobin 10.6 g/dL (12.0-15.0); Lymphocyte # 0.94 X10^3/ul (0.83-4.51); Lymphocyte % 19.8 % (19-41); Mean Corp Hgb Conc 30.9 g/dL (32-36); Mean Corpuscular Hgb 27.5 pg (27.0-32.0); Mean Corpuscular Volume 88.9 fL (81-99); Mean Platelet Vol. 9.3 fl (6.2-12.0); Monocyte# 0.38 X10^3/uL; NRBC Flagged by Analyzer 0 % (0-5); Neutrophil # 3.34 X10^3/uL (2.7-7.7); Neutrophil % 70.5 % (47-70); Platelet Count 169 K/mm3 (150-450); RBC Distribution Width CV 14.6 % (11.6-14.6); RBC Distribution Width SD 48.1 fl (35.1-43.9); Red Blood Count 3.86 M/mm3 (4.2-5.4); White Blood Count 4.7 K/mm3 (4.4-11.0)
[2023-02-04 08:33] LABS: Anion Gap 7 (5-15); BUN 19 mg/dL (7-18); BUN/Creat Ratio 24.1 RATIO (10-20); Calcium,Total 8.1 mg/dL (8.5-10.1); Chloride 105 mmol/L (98-107); Creatinine, Serum 0.79 mg/dL (0.55-1.02); EST Glomerular Filtration Rate 75 mL/min (>60); Est Glom Filt Rate - Afr Amer 91 mL/min (>60); Estimated Creatinine Clearance 41.72 ml/min; Glucose 76 mg/dL (74-106); Sodium Level 144 mmol/L (136-145)
[2023-02-04 08:35] LABS: Potassium 2.6 mmol/L (3.5-5.1)
--- NOTE | 2023-02-04 08:56 | PN_ITS ---
Subjective Subjective Patient seen and examined. She had no active complaints this morning. She was on room air. She is still wheezing abated after bronchitis. Review of systems otherwise negative. She has remained hemodynamically stable. Potassium is low at 2.6 today. Objective Data Objective Data Vital Signs: Vital Signs Temp Pulse Resp BP Pulse Ox O2 Del Method FiO2 98.0 F 76 19 H 130/64 H 94 Room Air 30 02/04/23 03:03 02/04/23 03:03 02/04/23 03:03 02/04/23 03:03 02/04/23 03:03 02/04/23 03:03 02/02/23 14:42 Oxygen Delivery Method Room Air Weight: 176 lb 9.444 oz Body Mass Index (BMI) 29.3 Intake & Output: Intake and Output for Last 24 Hours 02/02/23 02/03/23 02/04/23 23:59 23:59 23:59 Intake Total 240 / 240 1050 / 1050 Output Total 4050 / 4050 625 / 625 Balance -3810 / -3810 425 / 425 Lab / Micro Data Result Diagrams: 02/04/23 05:10 02/04/23 05:10 Labs: Laboratory Results - last 24 hr 02/03/23 14:13: Sodium 143, Potassium 2.7 L*, Chloride 105, Carbon Dioxide 29.0, Anion Gap 9, BUN 19 H, Creatinine 1.01, Estim Creat Clear Calc 41.31, Est GFR (MDRD) Af Amer 68, Est GFR (MDRD) Non-Af 56 L, BUN/Creatinine Ratio 18.8, Glucose 110 H, Calcium 8.5, Triglycerides 66, Cholesterol 100, LDL Cholesterol 40, VLDL Cholesterol 13, HDL Cholesterol 47 02/04/23 05:10: WBC 4.7, RBC 3.86 L, Hgb 10.6 L, Hct 34.3 L, MCV 88.9, MCH 27.5, MCHC 30.9 L, RDW Std Deviation 48.1 H, RDW Coeff of Bob 14.6, Plt Count 169, MPV 9.3, Immature Gran % (Auto) 0.200, Neut % (Auto) 70.5 H, Lymph % (Auto) 19.8, Nelson % (Auto) 8.0, Eos % (Auto) 1.1, Baso % (Auto) 0.4, Absolute Neuts (auto) 3. 3, Absolute Lymphs (auto) 0.94, Nucleated RBC % 0 02/04/23 05:10: Sodium 144, Potassium 2.6 L*, Chloride 105, Carbon Dioxide 32.0, Anion Gap 7, BUN 19 H, Creatinine 0.79, Estim Creat Clear Calc 41.72, Est GFR (MDRD) Af Amer 91, Est GFR (MDRD) Non-Af 75, BUN/Creatinine Ratio 24.1 H, Glucose 76, Calcium 8.1 L Micro: Microbiology 02/02/23 14:40 Blood Culture (Wb) - Right Wrist Blood Culture - Preliminary No growth in 48 hours. 02/02/23 13:15 Blood Culture (Wb) - Right Forearm Blood Culture - Preliminary No growth in 48 hours. 02/02/23 13:42 Nasal Secretion SARS-CoV-2 & FLU Antigen (Rapid) - Final Radiography Diagnostic Testing: Radiology Impression Echocardiogram 02/02/23 17:23 Interpretation Summary The left ventricular ejection fraction is 65 %. Diastolic function is indeterminate. Right ventricular systolic pressure estimated to be 40 mmHg. Mild aortic stenosis. Mild (1+) aortic valve insufficiency. Mild to moderate (1-2+) tricuspid valve insufficiency. Ordering Physician: Ashutosh Amaral Referring Physician: Marty Rodrigues Performed By: Leonila Fraser RDCS Physical Exam Const alert, oriented x3 and no apparent distress General Appearance: cooperative HEENT normocephalic, head/scalp atraumatic and moist oral mucous membranes Eyes PERRL and EOMs intact bilaterally Neck no lymphadenopathy and supple Neck Narrative: Positive JVD General: trachea midline Lymph Lymphatic: no lymphadenopathy noted and no lymphedema noted Resp Resp Narrative: markedly diminished breath sounds bibasally, bilateral wheezing and rhonchi in all lung davis. on room air Cardio regular rate, regular rhythm, S1 normal heart sound, S2 normal heart sound and no murmurs GI normal to inspection, nondistended, normoactive bowel sounds, soft to palpation, non-tender and non-distended Extremity normal capillary refill, no clubbing, cyanosis or edema and no calf tenderness Skin General Skin Exam: no breakdown Neuro oriented x3, CN's II-XII intact bilaterally, moves all extremities, no focal mo tor deficits, no sensory deficits noted and deep tendon reflexes 2+ bilaterally Sensorium / Orientation: awake and alert Motor Exam: strength 5/5 throughout Psych thought process normal, cooperative and affect normal Appearance: appropriate Assessment & Plan Assessment/Plan (1) Acute exacerbation of CHF (congestive heart failure): (2) Acute respiratory failure with hypoxia: PLAN: Plan #Acute respiratory failure due to acute on chronic exacerbation of heart failure * continue diuresis with IV lasix 40mg bid * still having wheezing and rhonchi in all lung davis. * still has significant wheezing and rhonchi in all lung davis. * given oxygen as needed and titrate to maintain sats >90% * 2D echo showed EF of 65% with indeterminate diastolic function and RVSp of 40mmHg as well as mild aortic stenosis and mild to moderate tricuspid valve insufficiency and mild aortic valve insufficiency * monitor intake and output. * fluid restriction to 1500cc daily * #Elevated troponin: has chronically elevated troponins. Denies any chest pain. 2D echo as above. Will monitor. Likely due to hypoxia. #Hypokalemia: K is 2.6. Will replace aggressively and trend. check magnesium level #Atrial fibrillation: on amiodarone. Not anticoagulated, unclear why. Likely due to her dementia and risk of falls. #History of Parkinson's disease: on levodopa carbidopa #Dementia: stable. #Depression: on lexapro. #Restless leg syndrome: on pramipexole DVT prophylaxis: on enoxaparin Total time spent on evaluation and management of patient, reviewing chart, discussing plan with patient, discussion with nursing and ancillary staff as well as documentation: 42 mins Charges/Coding Visit Charges Inpatient E&M: 92738 Subs Hosp L2
[2023-02-04 10:00] VITALS: BP 147/70; PULSE 72; RESP 18; TEMP 36.6; O2SAT 92
[2023-02-04] MEDS: Potassium Chloride 10mEq/100mL 10 MEQ/100 ML IV.SOLN. 100 MEQ IV BOLUS ×8 (10:08→21:14)
[2023-02-04] MEDS: 0.9% Saline Lock 10 ML Syringe IV ×2 (10:08→18:06)
[2023-02-04] MEDS: Furosemide 40 MG/4 ML Vial IV ×2 (10:09→18:06)
[2023-02-04] MEDS: Amiodarone 200 MG Tablet 100 MG PO (10:09)
[2023-02-04] MEDS: Escitalopram Oxalate 10 MG Tablet 5 MG PO (10:09)
[2023-02-04] MEDS: Pantoprazole Sodium 40 MG Tablet PO (10:09)
[2023-02-04] MEDS: Loratadine 10 MG Tablet PO (10:10)
[2023-02-04] MEDS: Carbidopa/Levodopa 25/250 Tablet PO ×4 (10:10→21:15)
[2023-02-04] MEDS: Enoxaparin 40 MG/0.4 ML Syringe SC (10:11)
[2023-02-04] MEDS: Menthol/Lanolin/Calamine/Znox 113 GM Tube 1 APPLIC TOPICAL ×2 (10:17→21:14)
[2023-02-04] MEDS: Nystatin Powder 15gm Bottle 1 APPLIC TOPICAL ×2 (10:17→21:14)
[2023-02-04] MEDS: Albuterol 2.5 MG/3 ML VIAL.NEB. INHALATION (12:53)
[2023-02-04 12:54] VITALS: RESP 24
[2023-02-04] MEDS: Dronabinol 2.5 MG Capsule PO ×2 (13:22→18:05)
[2023-02-04 16:31] VITALS: BP 159/77; PULSE 75; RESP 19; TEMP 36.6; O2SAT 93
[2023-02-04] MEDS: QUEtiapine 100 MG Tablet PO (21:15)
[2023-02-04] MEDS: MELATONIN 10 MG TABLET 5 MG PO (21:15)
[2023-02-04] MEDS: Mirtazapine 15 MG Tablet 7.5 MG PO (21:15)
[2023-02-04] MEDS: Gabapentin 100 MG Capsule PO (21:20)
[2023-02-04 21:23] VITALS: BP 149/104; PULSE 77; RESP 19; TEMP 37; O2SAT 93
[2023-02-05 03:27] VITALS: BMI 29.2
[2023-02-05 03:31] VITALS: BP 156/76; PULSE 69; RESP 18; TEMP 37; O2SAT 93
[2023-02-05] MEDS: Pramipexole Di-HCl 0.5 MG Tablet PO ×3 (06:15→21:31)
[2023-02-05 08:59] VITALS: BP 157/77; PULSE 65; RESP 16; TEMP 36.4; O2SAT 94
[2023-02-05] MEDS: Furosemide 40 MG/4 ML Vial IV ×2 (09:02→17:16)
[2023-02-05] MEDS: Loratadine 10 MG Tablet PO (09:03)
[2023-02-05] MEDS: Carbidopa/Levodopa 25/250 Tablet PO ×4 (09:03→21:32)
[2023-02-05] MEDS: Escitalopram Oxalate 10 MG Tablet 5 MG PO (09:03)
[2023-02-05] MEDS: Pantoprazole Sodium 40 MG Tablet PO (09:03)
[2023-02-05] MEDS: Amiodarone 200 MG Tablet 100 MG PO (09:04)
[2023-02-05] MEDS: Menthol/Lanolin/Calamine/Znox 113 GM Tube 1 APPLIC TOPICAL ×2 (09:04→21:07)
[2023-02-05] MEDS: Enoxaparin 40 MG/0.4 ML Syringe SC (09:05)
[2023-02-05] MEDS: Nystatin Powder 15gm Bottle 1 APPLIC TOPICAL ×2 (09:05→21:08)
[2023-02-05] MEDS: 0.9% Saline Lock 10 ML Syringe IV ×2 (09:06→17:16)
--- NOTE | 2023-02-05 09:13 | CASEMGMT ---
Discharge Planning Updates sent to [facility]. Asked if patient can return skilled. Luz Brown
--- NOTE | 2023-02-05 10:37 | CASEMGMT ---
Discharge Planning Tentative discharge date given to [facility]. Luz Brown
--- NOTE | 2023-02-05 11:33 | CASEMGMT ---
Discharge Planning WVM to initiate precert today. Luz Brown
[2023-02-05] MEDS: Dronabinol 2.5 MG Capsule PO ×2 (12:52→17:33)
[2023-02-05 15:05] VITALS: BP 95/53; PULSE 63; RESP 15; TEMP 36.5; O2SAT 93
[2023-02-05] MEDS: Ondansetron 4 MG/2 ML Vial IV (17:16)
--- NOTE | 2023-02-05 18:30 | PCM.PN.HOSP ---
Reason for Visit Reason for Visit: Diagnoses Heart failure, unspecified (02/02/23) Acute respiratory failure with hypoxia (02/02/23) Other specified abnormalities of plasma proteins (02/02/23) Subjective Subjective Patient was seen and examined today, we are awaiting acceptance for the patient at an extended care facility at the present time. Patient appears in no distress, she remains confused. She is on room air at this time. Objective Data Objective Data Vital Signs: Vital Signs Temp Pulse Resp BP Pulse Ox O2 Del Method FiO2 97.7 F L 63 15 95/53 L 93 Room Air 30 02/05/23 15:05 02/05/23 15:05 02/05/23 15:05 02/05/23 15:05 02/05/23 15:05 02/05/23 15:14 02/02/23 14:42 Oxygen Delivery Method Room Air Weight: 79.8 kg Body Mass Index (BMI) 29.2 Intake & Output: Intake and Output for Last 24 Hours 02/03/23 02/04/23 02/05/23 23:59 23:59 23:59 Intake Total 1050 / 1050 1240 / 1240 480 / 480 Output Total 625 / 625 1300 / 1300 900 / 900 Balance 425 / 425 -60 / -60 -420 / -420 Lab / Micro Data Result Diagrams: 02/04/23 05:10 02/04/23 05:10 Micro: Microbiology 02/02/23 14:40 Blood Culture (Wb) - Right Wrist Blood Culture - Preliminary No growth in 48 hours. 02/02/23 13:15 Blood Culture (Wb) - Right Forearm Blood Culture - Preliminary No growth in 48 hours. 02/02/23 13:42 Nasal Secretion SARS-CoV-2 & FLU Antigen (Rapid) - Final Physical Exam Const alert and no apparent distress General Appearance: cooperative and well developed Orientation / Consciousness: awake and confused HEENT normocephalic, head/scalp atraumatic and moist oral mucous membranes Eyes PERRL, EOMs intact bilaterally and conjunctivae normal Neck supple, no JVD, thyroid normal and no carotid bruits General: trachea midline Resp normal respiratory effort, no retractions, no use of accessory muscles and clear to auscultation bilaterally Auscultation: Negative for rales, rhonchi or wheezes Cardio regular rate, regular rhythm, no murmurs, no rub and no gallops GI normal to inspection, nondistended, normoactive bowel sounds, soft to palpation, non-tender and non-distended Extremity normal to inspection and no clubbing, cyanosis or edema Skin no rashes or lesions noted General Skin Exam: no breakdown Neuro CN's II-XII intact bilaterally, no focal motor deficits and no sensory deficits noted Neuro Narrative: Patient is confused Sensorium / Orientation: awake and alert Psych affect normal Psych Narrative: Patient is confused Assessment & Plan Assessment/Plan (1) Acute respiratory failure with hypoxia: PLAN: Plan 1. Acute hypoxic respiratory failure-secondary to acute exacerbation of chronic diastolic heart failure-patient is currently on room air at this time, continue present medications #2 elevated troponin-etiology unclear, patient has not had a non-STEMI #3 hypokalemia-I will recheck the patient's potassium today #4 Paroxysmal atrial fibrillation-patient is not anticoagulated, this may be due to the fact she has dementia. Patient is currently in sinus rhythm #5 dementia-patient will need to return to a skilled care facility, we are awaiting approval for this #6 Parkinson's disease-patient is on Sinemet #7 Mild pulmonary hypertension-complicates care, medical course, recovery, and prognosis Total clinical time spent by myself addressing the patient's medical issues, reviewing all of her data, and collaborating with patient's care team: 35 minutes Charges/Coding Visit Charges Inpatient E&M: 94633 Subs Hosp L2
[2023-02-05 19:43] LABS: Absolute Lymphocyte Count 1.12 X10^3/uL (0.83-4.51); Absolute Neutrophil Count 7.2 X10^3/uL (2.0-7.7); Basophil# 0.06 X10^3/uL; Basophil% 0.7 % (0-1); Eosinophil# 0.02 X10^3/uL; Eosinophils% 0.2 % (0-5); Hematocrit 42.3 % (37-47); Hemoglobin 13.5 g/dL (12.0-15.0); Lymphocyte # 1.12 X10^3/ul (0.83-4.51); Lymphocyte % 12.5 % (19-41); Mean Corp Hgb Conc 31.9 g/dL (32-36); Mean Corpuscular Hgb 27.5 pg (27.0-32.0); Mean Corpuscular Volume 86.2 fL (81-99); Mean Platelet Vol. 9.2 fl (6.2-12.0); Monocyte# 0.52 X10^3/uL; Monocyte% 5.8 % (0-10); NRBC Flagged by Analyzer 0 % (0-5); Neutrophil # 7.24 X10^3/uL (2.7-7.7); Neutrophil % 80.5 % (47-70); POSITIVE MORPHOLOGY YES; Platelet Count 237 K/mm3 (150-450); RBC Distribution Width SD 44.1 fl (35.1-43.9); Red Blood Count 4.91 M/mm3 (4.2-5.4)
[2023-02-05 19:55] LABS: Differential Indicated SCAN CRITERIA MET
[2023-02-05 20:14] LABS: Differential Comment SCANNED; Reactive Lymphocyte 1+
[2023-02-05 20:45] VITALS: PULSE 78; RESP 26
[2023-02-05] MEDS: Albuterol 2.5 MG/3 ML VIAL.NEB. INHALATION (20:45)
[2023-02-05 21:02] VITALS: BP 143/100; PULSE 76; RESP 20; TEMP 36.8; O2SAT 92
[2023-02-05 21:10] VITALS: RESP 20
[2023-02-05] MEDS: Mirtazapine 15 MG Tablet 7.5 MG PO (21:29)
[2023-02-05] MEDS: Gabapentin 100 MG Capsule PO (21:30)
[2023-02-05] MEDS: QUEtiapine 100 MG Tablet PO (21:31)
[2023-02-05] MEDS: MELATONIN 10 MG TABLET 5 MG PO (21:32)
--- NOTE | 2023-02-05 22:10 | CPS ---
pt declines bipap at this time
[2023-02-05] MEDS: metOLazone 5 MG Tablet PO (22:23)
[2023-02-05] MEDS: Ondansetron ODT 4 MG Tablet PO (23:16)
[2023-02-06 03:06] VITALS: BP 147/75; PULSE 64; RESP 18; TEMP 36.6; O2SAT 94
--- NOTE | 2023-02-06 03:13 | NURSING ---
pt has exp wheezes, 94% on RA, [id number]. offered a breathing treatment, pt states she does not want it at this time and would like to just rest for now. no further concerns at this time.
[2023-02-06 04:45] VITALS: BMI 28.7
[2023-02-06] MEDS: Pramipexole Di-HCl 0.5 MG Tablet PO ×3 (05:04→21:43)
[2023-02-06] MEDS: Ondansetron 4 MG/2 ML Vial IV ×2 (05:11→21:56)
[2023-02-06] MEDS: 0.9% Saline Lock 10 ML Syringe IV ×2 (05:14→08:55)
[2023-02-06 07:30] VITALS: O2SAT 96
[2023-02-06 08:45] VITALS: BP 144/73; PULSE 65; RESP 14; TEMP 36.2; O2SAT 95
[2023-02-06] MEDS: Furosemide 40 MG/4 ML Vial IV (08:50)
[2023-02-06] MEDS: Escitalopram Oxalate 10 MG Tablet 5 MG PO (08:56)
[2023-02-06] MEDS: Pantoprazole Sodium 40 MG Tablet PO (08:56)
[2023-02-06] MEDS: Carbidopa/Levodopa 25/250 Tablet PO ×4 (08:57→21:43)
[2023-02-06] MEDS: Enoxaparin 40 MG/0.4 ML Syringe SC (08:57)
[2023-02-06] MEDS: Amiodarone 200 MG Tablet 100 MG PO (08:57)
[2023-02-06] MEDS: Nystatin Powder 15gm Bottle 1 APPLIC TOPICAL ×2 (08:58→21:44)
[2023-02-06] MEDS: Menthol/Lanolin/Calamine/Znox 113 GM Tube 1 APPLIC TOPICAL ×2 (08:58→21:44)
--- NOTE | 2023-02-06 12:32 | TREXTCAR_ITS ---
Diet Diet Order/Speech Therapy: 02/02/23 17:23 Diet: Cardiac - Heart Healthy Food consistency:: Regular Liquid Consistency:: Regular/Thin Is pt able to select menu?: Yes Routine Orders/Code Status Routine Lab Work: BMP (in 2 days) Code Status: DNRCC-A (with intubation) Therapies Weight Bearing: Full weight bearing Physical Therapy: Eval and Treat Occupational Therapy: Eval and Treat Problem/Diagnosis (1) Acute respiratory failure with hypoxia: Status: Acute Code(s): J96.01 - Acute respiratory failure with hypoxia (2) Parkinson's disease: Status: Chronic Code(s): G20 - Parkinson's disease Plan 1. Acute hypoxic respiratory failure-secondary to acute exacerbation of chronic diastolic heart failure-patient is currently on room air at this time, continue present medications #2 elevated troponin-etiology unclear, patient has not had a non-STEMI #3 hypokalemia-I will recheck the patient's potassium today #4 Paroxysmal atrial fibrillation-patient is not anticoagulated, this may be due to the fact she has dementia. Patient is currently in sinus rhythm #5 dementia-patient will need to return to a skilled care facility, we are awaiting approval for this #6 Parkinson's disease-patient is on Sinemet #7 Mild pulmonary hypertension-complicates care, medical course, recovery, and prognosis Total clinical time spent by myself addressing the patient's medical issues, reviewing all of her data, and collaborating with patient's care team: 35 minutes Allergies/Procedures Done in Hospital Allergies iodine Allergy (Verified 02/02/23 13:13) PT UNSURE OF REACTION Sulfa (Sulfonamide Antibiotics) Allergy (Verified 02/02/23 13:13) PT UNSURE OF REACTION Procedures: 2-D Echocardiogram Type of Care/Length of Stay Estimated LOS: Convalescent Care Less Than 30 days Type of Care Needed: Skilled Rehab Potential: Good Prognosis: Good Additional Orders/Day of Discharge H&P will serve as current which was dated: 02/02/23 Day of Discharge: 02/07/23 Dietary and Speech Recommendations Dietitian Recommendations/Changes: Will continue therapeutic diet as ordered Will provide banana w/ breakfast and mashed potatoes w/ gravy at lunch and dinner per pt/family request Discharge Plan Admission Admit Date/Time: 02/02/23 16:40 Primary Reason for Your Visit: CHF Attending Provider: Jose R Kaur Primary Care Provider: Marty Rodrigues Consulting Providers: Ashutosh Amaral ; Noemi Espinoza Instructions Additional Instructions / Restrictions: Hospice consultation for patient-please call and set this up, this is per family request Discharge Orders/Prescriptions Prescriptions: New amiodarone 200 mg Tablet 100 mg PO DAILY Qty: 0 0RF guaifenesin 100 mg/5 mL Liquid 10 ml PO Q4H PRN PRN (Reason: Cough) Qty: 0 0RF nystatin [Nyamyc] 100,000 unit/gram Powder 1 applic topical BID Qty: 0 0RF Protocol: *Topical Application Instructions APPLICATION INSTRUCTIONS: affected area menthol-zinc oxide [Calmoseptine] 0.44-20.6 % Ointment 1 applic topical BID Qty: 0 0RF Protocol: *Topical Application Instructions APPLICATION INSTRUCTIONS: groin/periarea furosemide [Lasix] 40 mg tablet 40 mg PO DAILY Qty: 1 0RF potassium chloride 20 mEq tablet extended release 20 meq PO DAILY Qty: 1 0RF dronabinol 2.5 mg Capsule 2.5 mg PO 1200,1700 4 Days Qty: 8 0RF Continued ropinirole 1 mg tablet 1 mg PO TID quetiapine 50 mg tablet 100 mg PO QHS carbidopa-levodopa 25-250 mg Tablet 1 tab PO 4X/DAY sumatriptan succinate 100 mg Tablet 100 mg PO PRN PRN (Reason: Migraine Headache) ondansetron HCl 4 mg Tablet 4 mg PO PRN PRN (Reason: Nausea) meclizine 12.5 mg Tablet 12.5 mg PO TID PRN (Reason: Vertigo) acetaminophen 650 mg Tablet 650 mg PO Q4H PRN PRN (Reason: PAIN/FEVER) magnesium hydroxide [Milk of Magnesia] 400 mg/5 mL Suspension 30 ml PO DAILY PRN (Reason: Constipation) gabapentin 800 mg Tablet 100 mg PO QHS Hold Instructions: Resume on 10/12/21. bisacodyl 10 mg Suppository 10 mg MD PRN PRN (Reason: .) Prevalite 4 gram Powder 4 g PO DAILY PRN PRN (Reason: Diarrhea) melatonin 5 mg Tablet 5 mg PO QHS PRN PRN (Reason: .) albuterol sulfate 2.5 mg /3 mL (0.083 %) Solution For Nebulization 2.5 mg INHALATION Q4H PRN (Reason: Wheezing) pantoprazole 40 mg Tablet,Delayed Release (Dr/Ec) 40 mg PO DAILY escitalopram oxalate 5 mg Tablet 5 mg PO DAILY mirtazapine 7.5 mg Tablet 7.5 mg PO QHS Discontinued simethicone 125 mg Capsule 125 mg PO PRN PRN (Reason: .) guaifenesin [Ewelina-Tussin] 100 mg/5 mL Liquid 200 mg PO PRN PRN (Reason: Cough) mineral oil Enema 118 ml MD PRN PRN (Reason: Constipation) dronabinol 2.5 mg Capsule 2.5 mg PO BID Rx Instructions: administer before lunch and evening meal/dinner loratadine 10 mg Capsule 10 mg PO DAILY amiodarone 200 mg tablet 100 mg PO DAILY Qty: 90 3RF Referrals / Follow Up: Marty Rodrigues MD [Primary Care Provider] - Disposition Disposition (needs filled in before D/C Order can be placed): Intermediate Facility
--- NOTE | 2023-02-06 13:05 | CASEMGMT ---
Discharge Planning Requested updates sent to [facility] via [employer]. Luz Brown
[2023-02-06] MEDS: Dronabinol 2.5 MG Capsule PO ×2 (13:07→17:43)
--- NOTE | 2023-02-06 13:30 | CASEMGMT ---
Patient will be discharged back to [facility] today. SW notified RN of COVID test. Per RN, yesterday patient's daughter was asking about Hospice for patient. SW called patient's daughter, Adina and confirmed this. SW let her know that we can let [facility] know and they can follow up on making referral. Adina was okay with this. SW notified [facility] about Adina's interest in Hospice for patient. [facility] said they prefer to go over options with patients so SW will not make a referral. Plan: d/c back to [facility] under intermediate level of care with an order for a Hospice consult. Karmen Awan FIBERLINE SUPERVISOR JONATHAN
[2023-02-06 13:51] LABS: Anion Gap 11 (5-15); BUN 25 mg/dL (7-18); Calcium,Total 8.6 mg/dL (8.5-10.1); Chloride 91 mmol/L (98-107); Creatinine, Serum 1.04 mg/dL (0.55-1.02); EST Glomerular Filtration Rate 54 mL/min (>60); Est Glom Filt Rate - Afr Amer 66 mL/min (>60); Estimated Creatinine Clearance 40.12 ml/min; Glucose 111 mg/dL (74-106); Potassium 2.4 mmol/L (3.5-5.1); Sodium Level 135 mmol/L (136-145)
--- NOTE | 2023-02-06 14:47 | CASEMGMT ---
Patient's discharge has been canceled. SW notified [place] of cancelation. SW also left a message for patient's daughter Adina. Karmen Awan DOCUMENT ADVISOR LINUX PROGRAMMER
[2023-02-06 15:02] VITALS: BP 140/75; PULSE 67; RESP 14; TEMP 36.3; O2SAT 93
--- NOTE | 2023-02-06 16:20 | NURSING ---
This RN spoke with pt's daughter this afternoon about hospice care for her mother. Daughter is wanting to speak with SW before mother is discharged to discuss if her mother qualifies for hospice and if so if it will be long-term or not.
--- NOTE | 2023-02-06 16:55 | PN.HOSP_ITS ---
Reason for Visit Reason for Visit: Diagnoses Parkinson's disease (02/02/23) Heart failure, unspecified (02/02/23) Acute respiratory failure with hypoxia (02/02/23) Other specified abnormalities of plasma proteins (02/02/23) Subjective Subjective Was seen and examined today, she did not appear in any distress, unfortunately patient's potassium which was checked this afternoon was low, I canceled her transfer to the extended care facility and gave her oral potassium supplementation, her BMP will be rechecked tomorrow. I have also made the dec ision to stop her Lasix at the present time, it will need to be resumed when she goes back to the senior living. I briefly talked with her daughter who states that the patient is on Marinol for hallucinations the patient has due to her Parkinson's disease. Objective Data Objective Data Vital Signs: Vital Signs Temp Pulse Resp BP Pulse Ox O2 Del Method FiO2 97.3 F L 67 14 140/75 H 93 Room Air 30 02/06/23 15:02 02/06/23 15:02 02/06/23 15:02 02/06/23 15:02 02/06/23 15:02 02/06/23 15:05 02/02/23 14:42 Oxygen Delivery Method Room Air Weight: 78.3 kg Body Mass Index (BMI) 28.7 Intake & Output: Intake and Output for Last 24 Hours 02/04/23 02/05/23 02/06/23 23:59 23:59 23:59 Intake Total 1240 / 1240 600 / 600 240 / 240 Output Total 1300 / 1300 1600 / 1600 800 / 800 Balance -60 / -60 -1000 / -1000 -560 / -560 Lab / Micro Data Result Diagrams: 02/05/23 19:35 02/06/23 13:01 Labs: Laboratory Results - last 24 hr 02/05/23 19:35: WBC 9.0, RBC 4.91, Hgb 13.5, Hct 42.3, MCV 86.2, MCH 27.5, MCHC 31.9 L, RDW Std Deviation 44.1 H, RDW Coeff of Bob 14.0, Plt Count 237, MPV 9.2, Immature Gran % (Auto) 0.300, Neut % (Auto) 80.5 H, Lymph % (Auto) 12.5 L, [place] % (Auto) 5.8, Eos % (Auto) 0.2, Baso % (Auto) 0.7, Absolute Neuts (auto) 7.2, Absolute Lymphs (auto) 1.12, Nucleated RBC % 0, Differential Comment SCANNED, Reactive Lymphocytes 1+ 02/06/23 13:01: Sodium 135 L, Potassium 2.4 L*, Chloride 91 L, Carbon Dioxide 33.0 H, Anion Gap 11, BUN 25 H, Creatinine 1.04 H, Estim Creat Clear Calc 40.12, Est GFR (MDRD) Af Amer 66, Est GFR (MDRD) Non-Af 54 L, BUN/Creatinine Ratio 24.0 H, Glucose 111 H, Calcium 8.6 Micro: Microbiology 02/06/23 13:15 Nasal Secretion SARS-CoV-2 Antigen (Rapid) - Final 02/02/23 14:40 Blood Culture (Wb) - Right Wrist Blood Culture - Preliminary No growth in 48 hours. 02/02/23 13:15 Blood Culture (Wb) - Right Forearm Blood Culture - Prelimina ry No growth in 48 hours. 02/02/23 13:42 Nasal Secretion SARS-CoV-2 & FLU Antigen (Rapid) - Final Radiography Diagnostic Testing: Radiology Impression Chest X-Ray 02/02/23 13:43 IMPRESSION: Mild degree of vascular congestion and CHF. Electronically Signed: Yannick Roldan MD at 14:11 EDT , Physical Exam Narrative alert and no apparent distress General Appearance: cooperative and well developed Orientation / Consciousness: awake and confused HEENT normocephalic, head/scalp atraumatic and moist oral mucous membranes Eyes PERRL, EOMs intact bilaterally and conjunctivae normal Neck supple, no JVD, thyroid normal and no carotid bruits General: trachea midline Resp normal respiratory effort, no retractions, no use of accessory muscles and clear to auscultation bilaterally Auscultation: Negative for rales, rhonchi or wheezes Cardio regular rate, regular rhythm, no murmurs, no rub and no gallops GI normal to inspection, nondistended, normoactive bowel sounds, soft to palpation, non-tender and non-distended Extremity normal to inspection and no clubbing, cyanosis or edema Skin no rashes or lesions noted General Skin Exam: no breakdown Neuro CN's II-XII intact bilaterally, no focal motor deficits and no sensory deficits noted Neuro Narrative: Patient is confused Sensorium / Orientation: awake and alert Psych affect normal Psych Narrative: Patient is confused Assessment & Plan Assessment/Plan (1) Dementia: (2) Acute respiratory failure with hypoxia: (3) Parkinson's disease: PLAN: Plan 1. Acute hypoxic respiratory failure-secondary to acute exacerbation of chronic diastolic heart failure-patient is currently on room air at this time, continue present medications #2 elevated troponin-etiology unclear, patient has not had a non-STEMI #3 hypokalemia-patient received potassium supplementation today, I will recheck her BMP tomorrow #4 Paroxysmal atrial fibrillation-patient is not anticoagulated, this may be due to the fact she has dementia. Patient is currently in sinus rhythm #5 dementia-patient will need to return to a skilled care facility #6 Parkinson's disease-patient is on Sinemet #7 Mild pulmonary hypertension-complicates care, medical course, recovery, and prognosis Total clinical time spent by myself addressing the patient's medical issues, reviewing all of her data, and collaborating with patient's care team: 36 minutes Charges/Coding Visit Charges Inpatient E&M: 45274 Subs Hosp L2
[2023-02-06] MEDS: Potassium Chloride Oral Tablet 20 MEQ 60 MEQ PO (17:43)
[2023-02-06 21:10] VITALS: BP 90/56; PULSE 79; RESP 18; TEMP 36.6; O2SAT 91
[2023-02-06] MEDS: Gabapentin 100 MG Capsule PO (21:41)
[2023-02-06] MEDS: Potassium Chloride Oral Tablet 20 MEQ 40 MEQ PO (21:42)
[2023-02-06] MEDS: MELATONIN 10 MG TABLET 5 MG PO (21:42)
[2023-02-06] MEDS: Mirtazapine 15 MG Tablet 7.5 MG PO (21:43)
[2023-02-06] MEDS: QUEtiapine 100 MG Tablet PO (21:43)
[2023-02-07 00:56] VITALS: BP 138/75; PULSE 72; RESP 17; TEMP 36.4; O2SAT 92
[2023-02-07] MEDS: Pramipexole Di-HCl 0.5 MG Tablet PO (05:26)
[2023-02-07 05:27] VITALS: BP 131/75; PULSE 72; RESP 18; TEMP 36.4; O2SAT 92
[2023-02-07 05:29] LABS: Anion Gap 10 (5-15); BUN 31 mg/dL (7-18); BUN/Creat Ratio 29.5 RATIO (10-20); Calcium,Total 8.6 mg/dL (8.5-10.1); Chloride 94 mmol/L (98-107); Creatinine, Serum 1.05 mg/dL (0.55-1.02); EST Glomerular Filtration Rate 54 mL/min (>60); Est Glom Filt Rate - Afr Amer 65 mL/min (>60); Estimated Creatinine Clearance 39.73 ml/min; Glucose 108 mg/dL (74-106); Potassium 2.5 mmol/L (3.5-5.1); Sodium Level 139 mmol/L (136-145)
[2023-02-07 06:00] VITALS: BMI 27.8
[2023-02-07] MEDS: Potassium Chloride Oral Tablet 20 MEQ 40 MEQ PO (07:00)
[2023-02-07] MEDS: Potassium Chloride 10mEq/100mL 10 MEQ/100 ML IV.SOLN. 100 MEQ IV BOLUS ×2 (07:59→09:16)
[2023-02-07] MEDS: Carbidopa/Levodopa 25/250 Tablet PO (07:59)
[2023-02-07] MEDS: 0.9% Saline Lock 10 ML Syringe IV (07:59)
[2023-02-07] MEDS: Potassium Chloride Oral Tablet 20 MEQ 60 MEQ PO (07:59)
[2023-02-07 08:00] VITALS: O2SAT 92
[2023-02-07] MEDS: Escitalopram Oxalate 10 MG Tablet 5 MG PO (08:00)
[2023-02-07] MEDS: Menthol/Lanolin/Calamine/Znox 113 GM Tube 1 APPLIC TOPICAL (08:00)
[2023-02-07] MEDS: Pantoprazole Sodium 40 MG Tablet PO (08:01)
[2023-02-07] MEDS: Nystatin Powder 15gm Bottle 1 APPLIC TOPICAL (08:01)
[2023-02-07] MEDS: Amiodarone 200 MG Tablet 100 MG PO (08:02)
[2023-02-07] MEDS: Enoxaparin 40 MG/0.4 ML Syringe SC (08:02)
[2023-02-07 08:04] VITALS: O2SAT 92
[2023-02-07 10:20] VITALS: BP 122/87; PULSE 74; RESP 18; TEMP 37.2; O2SAT 92
--- NOTE | 2023-02-07 11:37 | DS.PCM_ITS ---
Providers Date of Admission: 02/02/23 Date of Discharge: 02/07/23 Primary Care Physician: Dr. Marty Rodrigues MD Reason For Visit: CHF EXACERBATION Diagnosis Discharge Diagnosis (1) Acute respiratory failure with hypoxia: Status: Acute Code(s): J96.01 - Acute respiratory failure with hypoxia (2) Parkinson's disease: Status: Chronic Code(s): G20 - Parkinson's disease Plan 1. Acute hypoxic respiratory failure-secondary to acute exacerbation of chronic diastolic heart failure-patient is currently on room air at this time, continue present medications #2 elevated troponin-etiology unclear, patient has not had a non-STEMI #3 hypokalemia-I will recheck the patient's potassium today #4 Paroxysmal atrial fibrillation-patient is not anticoagulated, this may be due to the fact she has dementia. Patient is currently in sinus rhythm #5 dementia-patient will need to return to a skilled care facility, we are await ing approval for this #6 Parkinson's disease-patient is on Sinemet #7 Mild pulmonary hypertension-complicates care, medical course, recovery, and prognosis Total clinical time spent by myself addressing the patient's medical issues, reviewing all of her data, and collaborating with patient's care team: 35 minutes Medications at Discharge Home Medications acetaminophen 650 mg tablet 650 mg PO Q4H PRN PRN PAIN/FEVER 09/29/21 bisacodyl 10 mg rectal suppository 10 mg MD PRN PRN . 09/29/21 carbidopa 25 mg-levodopa 250 mg tablet 1 tab PO 4X/DAY parkinson's 09/29/21 cholestyramine-aspartame 4 gram oral powder (Prevalite) 4 g PO DAILY PRN PRN Diarrhea 09/29/21 gabapentin 800 mg tablet 100 mg PO QHS . 09/29/21 magnesium hydroxide 400 mg/5 mL oral suspension (Milk of Magnesia) 30 ml PO DAILY PRN Constipation 09/29/21 meclizine 12.5 mg tablet 12.5 mg PO TID PRN Vertigo 09/29/21 melatonin 5 mg tablet 5 mg PO QHS PRN PRN . 09/29/21 ondansetron HCl 4 mg tablet 4 mg PO PRN PRN Nausea 09/29/21 sumatriptan succinate 100 mg tablet 100 mg PO PRN PRN Migraine Headache 09/29/21 ropinirole 1 mg tablet 1 mg PO TID . 11/09/21 quetiapine 50 mg tablet 100 mg PO QHS . 03/23/22 albuterol sulfate 2.5 mg/3 mL (0.083 %) solution for nebulization 2.5 mg inhalation Q4H PRN Wheezing 02/02/23 escitalopram oxalate 5 mg tablet 5 mg PO DAILY anti-depressant 02/02/23 mirtazapine 7.5 mg tablet 7.5 mg PO QHS . 02/02/23 pantoprazole 40 mg tablet,delayed release 40 mg PO DAILY . 02/02/23 amiodarone 200 mg tablet 100 mg PO DAILY #0 tabs 02/06/23 dronabinol 2.5 mg capsule 2.5 mg PO 1200,1700 4 days #8 caps 02/06/23 furosemide 40 mg tablet (Lasix) 40 mg PO DAILY #1 TAB 02/06/23 guaifenesin 100 mg/5 mL oral liquid 10 ml PO Q4H PRN PRN Cough #0 mL 02/06/23 menthol 0.44 %-zinc oxide 20.6 % topical ointment (Calmoseptine) 1 applic topical BID #0 grams 02/06/23 nystatin 100,000 unit/gram topical powder (Nyamyc) 1 applic topical BID #0 grams 02/06/23 potassium chloride 20 mEq tablet,extended release 20 meq PO DAILY #1 TAB 0506/23 Hospital Course Operations None Procedures 2-D Echocardiogram Summary of Care Provided Minutes Spent on Discharge: 31 Hospital Course: This 77-year-old white female was seen in the emergency room at [facility] with a chief complaint of shortness of breath, work-up in the emergency room included a chest x-ray which showed CHF and she was given IV furosemide, initially she was on BiPAP in the emergency room was but was transition to nasal cannula oxygen. Patient was admitted to PCU, she underwent an echocardiogram which showed a normal ejection fraction but evidence of mild pulmonary hypertension. Patient underwent IV diuresis and responded well to the diuresis. She was seen in consultation by PT and OT, it was recommended that she go to an extended care facility for short-term inpatient skilled services. On 02/07/2023, patient was seen and examined:alert and no apparent distress General Appearance: cooperative and well developed Orientation / Consciousness: awake and confused HEENT normocephalic, head/scalp atraumatic and moist oral mucous membranes Eyes PERRL, EOMs intact bilaterally and conjunctivae normal Neck supple, no JVD, thyroid normal and no carotid bruits General: trachea midline Resp normal respiratory effort, no retractions, no use of accessory muscles and clear to auscultation bilaterally Auscultation: Negative for rales, rhonchi or wheezes Cardio regular rate, regular rhythm, no murmurs, no rub and no gallops GI normal to inspection, nondistended, normoactive bowel sounds, soft to palpation, non-tender and non-distended Extremity normal to inspection and no clubbing, cyanosis or edema Skin no rashes or lesions noted General Skin Exam: no breakdown Neuro CN's II-XII intact bilaterally, no focal motor deficits and no sensory deficits noted Neuro Narrative: Patient is confused Sensorium / Orientation: awake and alert Psych affect normal Psych Narrative: Patient is confused Patient was transferred to [facility] facility on 02/07/2023 in stable condition Weight / BMI Weight Weight: 76 kg Body Mass Index (BMI) 27.8 ABG / Lab / Microbiology Data Result Diagrams: 02/05/23 19:35 02/07/23 11:14 Laboratory: Laboratory Results - last 24 hr 02/06/23 13:01: Sodium 135 L, Potassium 2.4 L*, Chloride 91 L, Carbon Dioxide 33.0 H, Anion Gap 11, BUN 25 H, Creatinine 1.04 H, Estim Creat Clear Calc 40.12, Est GFR (MDRD) Af Amer 66, Est GFR (MDRD) Non-Af 54 L, BUN/Creatinine Ratio 24.0 H, Glucose 111 H, Calcium 8.6 02/07/23 04:19: Sodium 139, Potassium 2.5 L*, Chloride 94 L, Carbon Dioxide 35.0 H, Anion Gap 10, BUN 31 H, Creatinine 1.05 H, Estim Creat Clear Calc 39.73, Est GFR (MDRD) Af Amer 65, Est GFR (MDRD) Non-Af 54 L, BUN/Creatinine Ratio 29.5 H, Glucose 108 H, Calcium 8.6 Microbiology: Microbiology 02/06/23 13:15 Nasal Secretion SARS-CoV-2 Antigen (Rapid) - Final 02/02/23 14:40 Blood Culture (Wb) - Right Wrist Blood Culture - Preliminary No growth in 48 hours. 02/02/23 13:15 Blood Culture (Wb) - Right Forearm Blood Culture - Preliminary No growth in 48 hours. 02/02/23 13:42 Nasal Secretion SARS-CoV-2 & FLU Antigen (Rapid) - Final Meaningful Use Info Meaningful Use Diagnoses (Choose all that apply): CHF CHF JENN/ARB ordered at discharge?: No Reason JENN/ARB not ordered?: Not indicated Documented LVEF (%): 65 Discharge Plan Admission Admit Date/Time: 02/02/23 16:40 Primary Reason for Your Visit: CHF Attending Provider: Jose R Kaur Primary Care Provider: Marty Rodrigues Consulting Providers: Ashutosh Amaral ; Noemi Espinoza Instructions Additional Instructions / Restrictions: Hospice consultation for patient-please call and set this up, this is per family request Discharge Orders/Prescriptions Prescriptions: New amiodarone 200 mg Tablet 100 mg PO DAILY Qty: 0 0RF guaifenesin 100 mg/5 mL Liquid 10 ml PO Q4H PRN PRN (Reason: Cough) Qty: 0 0RF nystatin [Nyamyc] 100,000 unit/gram Powder 1 applic topical BID Qty: 0 0RF Protocol: *Topical Application Instructions APPLICATION INSTRUCTIONS: affected area menthol-zinc oxide [Calmoseptine] 0.44-20.6 % Ointment 1 applic topical BID Qty: 0 0RF Protocol: *Topical Application Instructions APPLICATION INSTRUCTIONS: groin/periarea furosemide [Lasix] 40 mg tablet 40 mg PO DAILY Qty: 1 0RF potassium chloride 20 mEq tablet extended release 20 meq PO DAILY Qty: 1 0RF dronabinol 2.5 mg Capsule 2.5 mg PO 1200,1700 4 Days Qty: 8 0RF Continued ropinirole 1 mg tablet 1 mg PO TID quetiapine 50 mg tablet 100 mg PO QHS carbidopa-levodopa 25-250 mg Tablet 1 tab PO 4X/DAY sumatriptan succinate 100 mg Tablet 100 mg PO PRN PRN (Reason: Migraine Headache) ondansetron HCl 4 mg Tablet 4 mg PO PRN PRN (Reason: Nausea) meclizine 12.5 mg Tablet 12.5 mg PO TID PRN (Reason: Vertigo) acetaminophen 650 mg Tablet 650 mg PO Q4H PRN PRN (Reason: PAIN/FEVER) magnesium hydroxide [Milk of Magnesia] 400 mg/5 mL Suspension 30 ml PO DAILY PRN (Reason: Constipation) gabapentin 800 mg Tablet 100 mg PO QHS Hold Instructions: Resume on 10/12/21. bisacodyl 10 mg Suppository 10 mg MD PRN PRN (Reason: .) Prevalite 4 gram Powder 4 g PO DAILY PRN PRN (Reason: Diarrhea) melatonin 5 mg Tablet 5 mg PO QHS PRN PRN (Reason: .) albuterol sulfate 2.5 mg /3 mL (0.083 %) Solution For Nebulization 2.5 mg INHALATION Q4H PRN (Reason: Wheezing) pantoprazole 40 mg Tablet,Delayed Release (Dr/Ec) 40 mg PO DAILY escitalopram oxalate 5 mg Tablet 5 mg PO DAILY mirtazapine 7.5 mg Tablet 7.5 mg PO QHS Discontinued simethicone 125 mg Capsule 125 mg PO PRN PRN (Reason: .) guaifenesin [Ewelina-Tussin] 100 mg/5 mL Liquid 200 mg PO PRN PRN (Reason: Cough) mineral oil Enema 118 ml MD PRN PRN (Reason: Constipation) dronabinol 2.5 mg Capsule 2.5 mg PO BID Rx Instructions: administer before lunch and evening meal/dinner loratadine 10 mg Capsule 10 mg PO DAILY amiodarone 200 mg tablet 100 mg PO DAILY Qty: 90 3RF Referrals / Follow Up: Marty Rodrigues MD [Primary Care Provider] - Disposition Disposition (needs filled in before D/C Order can be placed): Long Term Facility Charges/Coding Visit Charges Inpatient E&M: 52480 Disch Hosp >30min
--- NOTE | 2023-02-07 11:50 | CASEMGMT ---
Discharge Planning Discharge orders and Covid results sent to [facility] via [employer]. Luz Brown
[2023-02-07 11:56] LABS: Anion Gap 10 (5-15); BUN 34 mg/dL (7-18); BUN/Creat Ratio 29.6 RATIO (10-20); Calcium,Total 8.8 mg/dL (8.5-10.1); Chloride 95 mmol/L (98-107); Creatinine, Serum 1.15 mg/dL (0.55-1.02); EST Glomerular Filtration Rate 49 mL/min (>60); Est Glom Filt Rate - Afr Amer 59 mL/min (>60); Estimated Creatinine Clearance 36.28 ml/min; Glucose 99 mg/dL (74-106); Potassium 3.5 mmol/L (3.5-5.1); Sodium Level 138 mmol/L (136-145)
--- NOTE | 2023-02-07 12:51 | CASEMGMT ---
BALJINDER called patient's daughter Adina as she wanted to talk with SW about whether or not patient is appropriate for Hospice. BALJINDER let Adina know that SW spoke with physician and he feels patient would be appropriate for Hospice. BALJINDER did let Adina know that [place] would like to be able to discuss Hospice options with her so the physician put an order in for a Hospice consult. Adina was in agreement with this. BALJINDER let Adina know that patient will be headed back today. Adina asked SW to leave her a message when patient will be leaving. d/c estate planning counselor Luz will work on patient's discharge. Plan: d/c back to [place] [facility] under skilled level of care. Physician did put an order for Hospice consult on the d/c orders. Karmen CASTILLO
--- NOTE | 2023-02-07 13:08 | CASEMGMT ---
Discharge Planning Transport scheduled with Physicians for 2p. Med list, script and transport time sent to [facility] via [email or web address]. Notified patients daughter, Adina, of transport time. Luz Brown
--- NOTE | 2023-02-07 13:45 | NURSING ---
Report called to Judi at [facility]. Pt to be picked up at 1400 for transport.
--- NOTE | 2023-02-07 13:53 | PHA.DC.MR ---
Pharmacy Service has performed discharge medication reconciliation for this patient. The patient's discharge medication list was reviewed for discrepancies and discrepancies were resolved. Home Medications acetaminophen 650 mg tablet 650 mg PO Q4H PRN PRN PAIN/FEVER 09/29/21 bisacodyl 10 mg rectal suppository 10 mg AL PRN PRN . 09/29/21 carbidopa 25 mg-levodopa 250 mg tablet 1 tab PO 4X/DAY parkinson's 09/29/21 cholestyramine-aspartame 4 gram oral powder (Prevalite) 4 g PO DAILY PRN PRN Diarrhea 09/29/21 gabapentin 800 mg tablet 100 mg PO QHS . 09/29/21 magnesium hydroxide 400 mg/5 mL oral suspension (Milk of Magnesia) 30 ml PO DAILY PRN Constipation 09/29/21 meclizine 12.5 mg tablet 12.5 mg PO TID PRN Vertigo 09/29/21 melatonin 5 mg tablet 5 mg PO QHS PRN PRN . 09/29/21 ondansetron HCl 4 mg tablet 4 mg PO PRN PRN Nausea 09/29/21 sumatriptan succinate 100 mg tablet 100 mg PO PRN PRN Migraine Headache 09/29/21 ropinirole 1 mg tablet 1 mg PO TID . 11/09/21 quetiapine 50 mg tablet 100 mg PO QHS . 03/23/22 albuterol sulfate 2.5 mg/3 mL (0.083 %) solution for nebulization 2.5 mg inhalation Q4H PRN Wheezing 02/02/23 escitalopram oxalate 5 mg tablet 5 mg PO DAILY anti-depressant 02/02/23 mirtazapine 7.5 mg tablet 7.5 mg PO QHS . 02/02/23 pantoprazole 40 mg tablet,delayed release 40 mg PO DAILY . 02/02/23 amiodarone 200 mg tablet 100 mg PO DAILY #0 tabs 02/06/23 dronabinol 2.5 mg capsule 2.5 mg PO 1200,1700 4 days #8 caps 02/06/23 furosemide 40 mg tablet (Lasix) 40 mg PO DAILY #1 TAB 02/06/23 guaifenesin 100 mg/5 mL oral liquid 10 ml PO Q4H PRN PRN Cough #0 mL 02/06/23 menthol 0.44 %-zinc oxide 20.6 % topical ointment (Calmoseptine) 1 applic topical BID #0 grams 02/06/23 nystatin 100,000 unit/gram topical powder (Nyamyc) 1 applic topical BID #0 grams 02/06/23 potassium chloride 20 mEq tablet,extended release 20 meq PO DAILY #1 TAB 02/06/23
== END 2023-02-07 14:17 | disposition skilled nursing facility (03) | DRG 291 ==
LOC: ED 16:18 → PCU 16:30
PROVIDERS: Nurse Practitioner; Student in an Organized Health Care Education/Training Program; Emergency Provider Emergency Medicine; PCP Family Medicine; Visit Provider Internal Medicine
DX: I50.33 Acute on chronic diastolic (congestive) heart failure (principal); J96.01 Acute respiratory failure with hypoxia; I48.0 Paroxysmal atrial fibrillation; F29 Unspecified psychosis not due to a substance or known physiological condition; I08.2 Rheumatic disorders of both aortic and tricuspid valves; G25.81 Restless legs syndrome; I27.20 Pulmonary hypertension, unspecified; F03.90 Unspecified dementia, unspecified severity, without behavioral disturbance, psychotic disturbance, mood disturbance, and anxiety; G20 Parkinson's disease; I48.91 Unspecified atrial fibrillation; J44.9 Chronic obstructive pulmonary disease, unspecified; E87.6 Hypokalemia; R77.8 Other specified abnormalities of plasma proteins; Z66 Do not resuscitate; F32.A Depression, unspecified; Z79.899 Other long term (current) drug therapy
CPT/HCPCS: 36415; 36600; 71045; 80048; 80061; 82803; 83605; 83735; 83880; 84484; 85025; 87040; 87428; 87811; 93005; 93306; 94002; 94640; 94762; 97110; 97162; 97165; 97530; 97535; 97802; 99285; J7040; Q9957; A4216; J1940; J2405

== ENCOUNTER → 2023-02-02 | Outpatient (REF) | payer MEDICARE, MEDICAID, SELFPAY ==
[2023-02-02 08:24] LABS: Absolute Lymphocyte Count 0.64 X10^3/uL (0.83-4.51); Absolute Neutrophil Count 3.1 X10^3/uL (2.0-7.7); Basophil# 0.01 X10^3/uL; Basophil% 0.2 % (0-1); Eosinophil# 0.07 X10^3/uL; Eosinophils% 1.7 % (0-5); Hematocrit 35.8 % (37-47); Lymphocyte # 0.64 X10^3/ul (0.83-4.51); Lymphocyte % 15.2 % (19-41); Mean Corp Hgb Conc 30.7 g/dL (32-36); Mean Corpuscular Hgb 27.5 pg (27.0-32.0); Mean Corpuscular Volume 89.5 fL (81-99); Mean Platelet Vol. 9.8 fl (6.2-12.0); Monocyte# 0.36 X10^3/uL; Monocyte% 8.5 % (0-10); NRBC Flagged by Analyzer 0 % (0-5); Neutrophil # 3.13 X10^3/uL (2.7-7.7); Neutrophil % 74.2 % (47-70); Platelet Count 152 K/mm3 (150-450); RBC Distribution Width CV 14.6 % (11.6-14.6); White Blood Count 4.2 K/mm3 (4.4-11.0)
[2023-02-02 08:42] LABS: Anion Gap 8 (5-15); BUN 15 mg/dL (7-18); BUN/Creat Ratio 22.8 RATIO (10-20); Calcium,Total 8.3 mg/dL (8.5-10.1); Chloride 108 mmol/L (98-107); Creatinine, Serum 0.66 mg/dL (0.55-1.02); EST Glomerular Filtration Rate 92 mL/min (>60); Est Glom Filt Rate - Afr Amer 112 mL/min (>60); Glucose 91 mg/dL (74-106); Potassium 2.8 mmol/L (3.5-5.1); Sodium Level 143 mmol/L (136-145)
== END ==
LOC: OLS.WHLCAR 05:00
PROVIDERS: PCP Family Medicine; Visit Provider Nurse Practitioner Adult Health
DX: E87.6 Hypokalemia (principal); G20 Parkinson's disease; F29 Unspecified psychosis not due to a substance or known physiological condition; Z79.899 Other long term (current) drug therapy
CPT/HCPCS: 36415; 80048; 85025